=== PATIENT | female | born 2005 | race Caucasian/White ===

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

== ENCOUNTER 2024-02-24 14:32 | Emergency (ER) | payer SELFPAY ==
[2024-02-24 14:33] VITALS: BP 135/84; PULSE 95; RESP 16; TEMP 36.7; O2SAT 100; BMI 39.4
[2024-02-24 14:36] VITALS: BP 135/84; PULSE 93; O2SAT 99
--- NOTE | 2024-02-24 14:41 | ED_ITS ---
<Statement entered by Abida Griffith DO - 02/24/24 16:40> I was consulted by the DAWIT, and we discussed the complexity of the problems being addressed. I approved the treatment and management plan for this patient's care in the emergency department, thus performing a substantive portion of the medical decision making. Abida Griffith DO Discharge Plan Disposition Patient Disposition: Home, Self-Care Condition: Good Prescriptions Prescriptions: No Action hydrocodone-acetaminophen 5-325 mg tablet 1 tab PO Q8H PRN (Reason: pain) Qty: 12 0RF naproxen 500 mg tablet 500 mg PO Q12H PRN (Reason: pain) Qty: 20 0RF Referrals Follow up/Referrals: Provider,Referral, MD [Primary Care Provider] - See instructions Activity Restrictions/Add. Instructions Additional Instructions/Restrictions: Continue to take Tylenol and especially Motrin for migraine-like symptoms. Follow-up with your PCP for no improvement or worsening signs or symptoms. Return to ER as needed. Clinical Impressions Clinical Impression: Headache Instructions Patient Instructions: DI for Headache Print Language Print Language: Bruneian Discharge ED Provider: Abida Griffith General Adult HPI General Chief complaint: Headache Stated complaint: headache w/blurred vision vomiting, nausea Time Seen by Provider: 02/24/24 14:41 Mode of Arrival: Ambulatory Source of Information: Patient Limitations: No Limitations Description of Symptoms (Recalled from ER Triage Doc. by RN): Reports having a migraine for 3 days. States she has had migraines in the past and this one is like that just a little more painful. History of Present Illness HPI narrative: Patient presents for evaluation of headache. Patient gives a history of 3 days of crescendo-decrescendo headache. She has not been headache free for 3 days but has had periods of intensity at 10 out of 10 but at the lowest it has been 4 out of 10. It is located on the left side of her head with no radiation. Patient states when it hurts significantly at 10 she has blurred vision and has had nausea and vomiting associated. She is only tried to treat it with Tylenol. She does have a history of headaches but is not currently on any medication as she has no insurance. Denies any recent illness fever chills hemoptysis hematochezia melena hematemesis hematuria. Related Data Previous Rx's ?Medication ?Instructions ?Recorded hydrocodone 5 mg-acetaminophen 325 1 tab PO Q8H PRN pain #12 tabs 03/01/23 mg tablet naproxen 500 mg tablet 500 mg PO Q12H PRN pain #20 tabs 03/01/23 Allergies Allergy/AdvReac Type Severity Reaction Status Date / Time Penicillins Allergy Verified 02/28/23 23:06 [facility] Disclaimer: The information contained in this section may have been updated after the patient was seen, as this information can be updated by other users. Medical History (Updated 02/24/24 @ 16:06 by GETACHEW Johnson) Depression Anxiety Migraine Asthma Surgical History History of tympanostomy tube placement Social History (Updated 04/11/22 @ 14:16 by Cheryl Faust RN) Smoking Status: Never smoker alcohol intake: never substance use type: denies use current occupational status: student Travel in the last 8 weeks: None household members: family housing: house Other Medical History Have you received the Flu Vaccine for this season: No Have you received the Pneumonia Vaccine: No ROS Obtained: Yes Systems reviewed as appropriate & no additional complaints except as documented Physical Exam General General appearance: alert and in no apparent distress Eye Eye exam: Present normal appearance, PERRL and EOMI Neck Neck exam: Present normal inspection and full ROM; Absent tenderness Respiratory Respiratory exam: Present normal lung sounds bilaterally Cardiovascular Cardiovascular exam: Present regular rate Neurological Exam Neurological exam: Present alert, oriented X3, CN II-XII intact and normal gait; Absent motor sensory deficit Medical Decision Making Medical Records Medical records reviewed: Yes I reviewed the patient's medical records. Screening: Per USPSTF and CDC recommendations, given the prevalence of disease in our region, it is our hospital?s policy to screen for HIV and viral Hepatitis for all patients aged 18 and over and those with ongoing risk factors. Prem Inquiry Pt receiving controlled substance: No Vital Signs: 02/24/24 14:33 02/24/24 14:36 02/24/24 15:01 Temperature 98.0 F Temperature Source Oral Pulse Rate 93 H 82 Pulse Rate [Radial] 95 H Respiratory Rate 16 Blood Pressure 135/84 112/71 Blood Pressure [Right Arm] 135/84 Blood Pressure Mean [Right Arm] 101 Blood Pressure Source [Right Arm] Manual Cuff/ Doppler Blood Pressure Position [Right Arm] Sitting 02 Sat by Pulse Oximetry 100 99 99 Oxygen Delivery Method Room Air Room Air Room Air 02/24/24 15:30 02/24/24 16:10 Temperature 98 F Temperature Source Pulse Rate 81 82 Pulse Rate [Radial] Respiratory Rate 16 Blood Pressure 131/88 131/88 Blood Pressure [Right Arm] Blood Pressure Mean [Right Arm] Blood Pressure Source [Right Arm] Blood Pressure Position [Right Arm] 02 Sat by Pulse Oximetry 100 Oxygen Delivery Method Room Air Lab Data Lab results reviewed: Yes I reviewed the patient's lab results. Lab Results 02/24/24 14:51: WBC 6.8, RBC 4.33, Hgb 11.5 L, Hct 34.9 L, MCV 80.7 L, MCH 26.5 L, MCHC 32.8, RDW 15.9, Plt Count 305, MPV 8.1, Neut % (Auto) 64.1, Lymph % (Auto) 25.6, [place] % (Auto) 5.3, Eos % (Auto) 4.1, Baso % (Auto) 0.9, Neut # (Auto) 4.3, Lymph # (Auto) 1.7, [place] # (Auto) 0.4, Eos # (Auto) 0.3, Baso # (Auto) 0.1, Sodium 140, Potassium 3.9, Chloride 107, Carbon Dioxide 26, Anion Gap 10.9, BUN 10, Creatinine 0.70, Estimated Creat Clear 219, Estimated GFR 108, Est GFR ( Amer) 130, Glucose 66 L, Calcium 9.6, Magnesium 1.9, Total Bilirubin 0.5, AST 29, ALT 26, Alkaline Phosphatase 45, Total Protein 7.5, Albumin 4.4, Globulin 3.1, Albumin/Globulin Ratio 1.4 02/24/24 15:40: Urine Color Yellow, Urine Appearance Clear, Urine pH 8.0, Ur Specific [place] 1.015, Urine Protein Negative, Urine Glucose (UA) Negative, Urine Ketones Negative, Urine Blood Negative, Urine Nitrate Negative, Urine Bilirubin Negative, Urine Urobilinogen 0.2, Ur Leukocyte Esterase Negative 02/24/24 14:51 02/24/24 14:51 Orders (Tests/Meds): ED MEDICATIONS Discontinued Medications Generic Name Dose Route Start Last Admin Trade Name Freq PRN Reason Stop Dose Admin Acetaminophen 1,000 mg 02/24/24 14:49 02/24/24 15:18 Acetaminophen 500mg Tab PO 02/24/24 14:50 1,000 mg ONCE ONE Administration Dexamethasone Sodium Phosphate 10 mg 02/24/24 14:49 02/24/24 15:17 Dexamethasone 4mg/Ml 5ml Mdv IV 02/24/24 14:50 10 mg ONCE ONE Administration Diphenhydramine HCl 50 mg 02/24/24 14:49 02/24/24 15:17 Diphenhydramine 50mg/Ml Vial IV 02/24/24 14:50 50 mg ONCE ONE Administration Ketorolac Tromethamine 15 mg 02/24/24 14:49 02/24/24 15:17 Ketorolac 30mg/Ml Vial IV 02/24/24 14:50 15 mg ONCE ONE Administration Methocarbamol 500 mg 02/24/24 14:49 02/24/24 15:17 Methocarbamol 500mg Tablet PO 02/24/24 14:50 500 mg ONCE ONE Administration Prochlorperazine Edisylate 10 mg 02/24/24 14:49 02/24/24 15:17 Prochlorperazine 10mg/2ml Vial IV 02/24/24 14:50 10 mg ONCE ONE Administration ORDERS Category Date Time Status CBC w/Auto Diff [Complete Blood Count Auto Diff] Stat Lab 02/24/24 14:51 Completed CMP [Comprehensive Metabolic Panel] Stat Lab 02/24/24 14:51 Completed HIV (1&2) Antibody Rapid Stat Lab 02/24/24 14:51 Received Hep C Ab with Reflex to RNA Stat Lab 02/24/24 14:51 Received Magnesium Stat Lab 02/24/24 14:51 Completed Thyroid Panel Stat Lab 02/24/24 14:51 Received UA [Urinalysis and Microscopic] Stat Lab 02/24/24 15:40 Results Urine , HCG Qual. Stat Lab 02/24/24 15:40 Received Medical Decision Narrative: In summary patient is a 18-year-old female who presents to the emergency department for evaluation of headache. Patient is hemodynamically stable upon arrival, afebrile. Physical exam is remarkable for nonreproducible headache pain with no nuchal rigidity no C-spine tenderness normal oropharynx clear breath sounds no focal neurologic deficits with cranial nerves II through XII intact grossly to exam. Differential diagnosis includes migraine versus upper respiratory tract infection etc. Initial workup will be conducted with hematologic labs UA. Initial interventions include Tylenol Benadryl Compazine Decadron Robaxin Toradol. Initial workup reviewed by me shows that her hematologic labs are nonactionable. Upon repeat evaluation patient had complete resolution of her symptoms after initial intervention. Given this patient is appropriate for discharge with follow-up with her PCP within a week. Critical Care Critical Care Time Critical Care Time: No
[2024-02-24 15:01] VITALS: BP 112/71; PULSE 82; O2SAT 99
[2024-02-24 15:04] LABS: Basophils # 0.1 K/mm3 (0-0.2); Basophils % 0.9 % (0.1-2.0); Eosinophils # 0.3 K/mm3 (0.0-0.4); Eosinophils % 4.1 % (0.1-12.0); Hematocrit 34.9 % (37.0-47.0); Hemoglobin 11.5 g/dL (12.2-16.2); Lymphocytes # 1.7 K/mm3 (0.7-4.5); Lymphocytes % 25.6 % (10-50); Mean Corpuscular HGB Conc 32.8 g/dL (31.8-35.4); Mean Corpuscular Hemoglobin 26.5 pg (27.0-31.2); Mean Corpuscular Volume 80.7 fl (81-99); Mean Platelet Volume 8.1 fl (7.4-10.4); Monocytes # 0.4 K/mm3 (0.1-1.0); Monocytes % 5.3 % (1.7-9.3); Neutrophils # 4.3 K/mm3 (1.8-7.8); Neutrophils % 64.1 % (37.0-80.0); Platelet Count 305 K/mm3 (142-424); Red Blood Count 4.33 M/mm3 (4.20-5.40); Red Cell Distribution Width 15.9 % (11.5-17.5); White Blood Count 6.8 K/mm3 (4.5-13.0)
[2024-02-24 15:05] LABS: Albumin Level 4.4 g/dl (3.5-5.0); Chloride 107 mmol/L (98-107); Potassium 3.9 mmoL/L (3.5-5.1); Sodium 140 mmol/L (136-145)
[2024-02-24 15:07] LABS: Blood Urea Nitrogen 10 mg/dl (7-17); Creatinine Clearance Estimated 219 mL/min (50-200); Estimated Glomerular Filt Rate 108 ml/min (>60); GFR (African American) 130 ML/MIN (>60)
[2024-02-24 15:08] LABS: Alanine Aminotransferase 26 U/L (12-78); Albumin/Globulin Ratio 1.4 (1.1-1.8); Alkaline Phosphatase 45 U/L (38-126); Anion Gap 10.9 mEq/L (5-15); Aspartate Amino Transferase 29 U/L (14-36); Bilirubin,Total 0.5 mg/dl (0.2-1.3); Calcium 9.6 mg/dl (8.4-10.2); Carbon Dioxide 26 mmol/L (22.0-30.0); Globulin 3.1 g/dL (1.3-3.2); Glucose 66 mg/dl (74-100); Magnesium 1.9 mg/dl (1.6-2.3); Total Protein,Serum 7.5 g/dl (6.3-8.2)
[2024-02-24] MEDS: DEXAMETHASONE 4MG/ML 5ML MDV 10 MG IV (15:17)
[2024-02-24] MEDS: PROCHLORPERAZINE 10MG/2ML VIAL 10 MG IV (15:17)
[2024-02-24] MEDS: diphenhydrAMINE 50MG/ML VIAL 50 MG IV (15:17)
[2024-02-24] MEDS: KETOROLAC 30MG/ML VIAL 15 MG IV (15:17)
[2024-02-24] MEDS: METHOCARBAMOL 500MG TABLET 500 MG PO (15:17)
[2024-02-24] MEDS: ACETAMINOPHEN 500MG TAB 1000 MG PO (15:18)
[2024-02-24 15:30] VITALS: BP 131/88; PULSE 81; O2SAT 100
[2024-02-24 15:45] LABS: Microscopic, Urine URINE MICROSCOPIC (MICROSCOPIC)
[2024-02-24 15:46] LABS: Triiodothryronine (T3) Uptake 36 % (23.5-40.5)
[2024-02-24 15:47] LABS: Free Thyroxine Index 3.2 ug/dL (5.93-13.13); T4 (Thyroxine) 8.8 ug/dl (5.53-11.0)
[2024-02-24 15:49] LABS: Appearance,Urine CLEAR (Clear); Bilirubin,Urine Negative (Negative); Blood, Urine Negative (Negative); Color,Urine YELLOW (Yellow); Glucose,Urine (UA) Negative (Negative); Ketones,Urine Negative (Negative); Leukocyte Esterase,Urine Negative (Negative); Nitrate,Urine Negative (Negative); Protein,Urine Negative (Negative); Specific Gravity, Urine 1.015 (1.005-1.030); Urobilinogen,Urine 0.2 EU/dl (0.2)
[2024-02-24 16:01] LABS: Thyroid Stimulating Hormone 0.96 uIU/mL (0.465-4.68)
[2024-02-24 16:10] VITALS: BP 131/88; PULSE 82; RESP 16; TEMP 36.6; O2SAT 100
[2024-02-24 17:11] LABS: Bacteria,Urine Trace /lpf
[2024-02-24 17:50] LABS: Urine Pregnancy, HCG Qual. Negative (Negative)
[2024-02-24 21:26] LABS: HIV (1&2) Antibody Rapid NONREACTIVE (NONREACTIVE)
[2024-02-26 05:27] LABS: HCV Ab Non Reactive (Non Reactive)
== END 2024-02-24 16:12 | disposition home or self-care (01) ==
PROVIDERS: Physician Assistant; Student in an Organized Health Care Education/Training Program; Emergency Provider Emergency Medicine
DX: R51.9 Headache, unspecified (principal); R11.2 Nausea with vomiting, unspecified; H53.8 Other visual disturbances
CPT/HCPCS: 80053; 81001; 81025; 83735; 84436; 84443; 84479; 85025; 86803; 87389; 96374; 96375; 99283; J0780; J1100; J1200; J1885

== ENCOUNTER 2024-03-10 23:27 | Emergency (ER) | payer SELFPAY ==
[2024-03-10 23:29] VITALS: BP 138/80; PULSE 101; RESP 20; TEMP 36.8; O2SAT 98; BMI 39.9
--- NOTE | 2024-03-10 23:31 | ED_ITS ---
Discharge Plan Disposition Patient Disposition: Home, Self-Care Prescriptions Prescriptions: No Action hydrocodone-acetaminophen 5-325 mg tablet 1 tab PO Q8H PRN (Reason: pain) Qty: 12 0RF naproxen 500 mg tablet 500 mg PO Q12H PRN (Reason: pain) Qty: 20 0RF Referrals Follow up/Referrals: Provider,Referral, [Primary Care Provider] - See instructions Activity Restrictions/Add. Instructions Additional Instructions/Restrictions: Please follow-up with your primary care provider. Please return to the emergency department if you develop any new or worsening symptoms or become concerned for your health. Clinical Impressions Clinical Impression: Exposure to COVID-19 virus Stand Alone Forms Stand Alone Forms: Work/School Release Print Language Print Language: Divehi Discharge ED Provider: Niles Donohue General Adult HPI General Chief complaint: Upper Respiratory Infection Stated complaint: vomiting, fever, cough, covid exposure, wasp sting Time Seen by Provider: 03/10/24 23:30 History of Present Illness HPI narrative: 18-year-old female presents with multiple complaints. She reports that she had a fever couple days ago and has been having some cough and congestion as well as vomiting and diarrhea. She reports that she thinks she was exposed to COVID and would like to be checked. She denies any significant shortness of breath currently. She reports she is still able to eat and drink. Related Data Previous Rx's ?Medication ?Instructions ?Recorded hydrocodone 5 mg-acetaminophen 325 1 tab PO Q8H PRN pain #12 tabs 03/01/23 mg tablet naproxen 500 mg tablet 500 mg PO Q12H PRN pain #20 tabs 03/01/23 Allergies Allergy/AdvReac Type Severity Reaction Status Date / Time Penicillins Allergy Verified 02/28/23 23:06 [facility] Disclaimer: The information contained in this section may have been updated after the patient was seen, as this information can be updated by other users. Medical History (Updated 03/10/24 @ 23:41 by Niles Donohue MD) Depression Anxiety Migraine Asthma Surgical History History of tympanostomy tube placement Social History (Updated 04/11/22 @ 14:16 by Cheryl Faust RN) Smoking Status: Current every day smoker tobacco type: e-cigarettes alcohol intake: never substance use type: denies use current occupational status: student Travel in the last 8 weeks: None household members: family housing: house Other Medical History Have you received the Flu Vaccine for this season: No Have you received the Pneumonia Vaccine: No ROS Obtained: Yes All systems reviewed & no additional complaints except as documented Physical Exam General General appearance: alert and in no apparent distress Head Head exam: atraumatic and normocephalic Eye Eye exam: Present normal appearance, PERRL and EOMI ENT ENT exam: Present normal oropharynx and normal external ear exam Neck Neck exam: Present normal inspection and full ROM Chest Chest inspection: Present normal inspection and symmetric chest wall rise; Absent tenderness Respiratory Respiratory exam: Present normal lung sounds bilaterally; Absent respiratory distress Cardiovascular Cardiovascular exam: Present regular rate and normal rhythm Abdominal Exam Abdominal exam: Present soft; Absent distention, tenderness or guarding Extremities Exam Extremities exam: Present normal inspection; Absent edema or joint swelling Back Exam Back exam: Present normal inspection; Absent tenderness Neurological Exam Neurological exam: Present alert and oriented X3; Absent motor sensory deficit Psychiatric Psychiatric exam: Present normal affect and normal mood Skin Skin exam: Present warm, dry and normal color Lymphatic Lymphatic Findings: no adenopathy Medical Decision Making Medical Records Medical records reviewed: Yes I reviewed the patient's medical records. Screening: Per USPSTF and CDC recommendations, given the prevalence of disease in our region, it is our hospital?s policy to screen for HIV and viral Hepatitis for all patients aged 18 and over and those with ongoing risk factors. Prem Inquiry Pt receiving controlled substance: No Prem was queried for this patient: No Vital Signs: 03/10/24 23:29 03/10/24 23:56 Temperature 98.2 F 98.2 F Temperature Source Oral Pulse Rate 90 Pulse Rate [Left Radial] 101 H Respiratory Rate 20 20 Blood Pressure 135/78 Blood Pressure [Right Arm] 138/80 Blood Pressure Mean [Right Arm] 99 02 Sat by Pulse Oximetry 98 Oxygen Delivery Method Room Air Room Air Lab Data Lab results reviewed: Yes I reviewed the patient's lab results. Lab Results 03/10/24 23:40: SARS-CoV-2 (PCR) Not detected, Influenza A Untype (PCR) Not detected, Influenza Type B (PCR) Not detected Orders (Tests/Meds): ORDERS Category Date Time Status Rapid PCR Covid and Flu A/B Stat Lab 03/10/24 23:40 Completed Medical Decision Narrative: 18-year-old female presents for cough congestion nausea vomiting diarrhea. Patient is concerned she could have COVID. History was obtained via interactive discussion with patient. On arrival, patient is [afebrile, hemodynamically stable, satting appropriately, alert, oriented x4, GCS 15], moving all extremities spontaneously. Full physical exam performed and significant for no significant physical exam abnormalities Differential includes but is not limited to COVID, flu, gastroenteritis, pneumonia. Blood work, radiograph of the chest was considered, but deemed unnecessary due to history, clear lungs on exam. Given patient history, exam and workup, patient's presentation most likely represents gastroenteritis. COVID swab was sent and returned negative. Patient was discharged in stable condition. Procedures Risk/Benefits of Procedure(s) Were Explained: Yes Critical Care Critical Care Time Critical Care Time: No
--- NOTE | 2024-03-10 23:46 | PC.NURSE ---
covid swab sent to lab
[2024-03-10 23:54] LABS: Coronavirus 19, PCR Not Detected (NotDetected); Influenza A, PCR Not Detected (NotDetected); Influenza B, PCR Not Detected (NotDetected)
[2024-03-10 23:56] VITALS: BP 135/78; PULSE 90; RESP 20; TEMP 36.8; O2SAT 99
== END 2024-03-10 23:57 | disposition home or self-care (01) ==
PROVIDERS: Emergency Provider Emergency Medicine
DX: Z20.822 Contact with and (suspected) exposure to COVID-19 (principal); R05.9 Cough, unspecified; R09.81 Nasal congestion; R11.11 Vomiting without nausea; R50.9 Fever, unspecified
CPT/HCPCS: 87636; 99282

== ENCOUNTER 2024-06-17 20:16 | Emergency (ER) | payer SELFPAY ==
[2024-06-17 20:17] VITALS: BP 143/95; PULSE 108; RESP 18; TEMP 36.8; O2SAT 98; BMI 37.1
--- NOTE | 2024-06-17 20:21 | HMH.EDGENADL ---
Discharge Plan Disposition Patient Disposition: Home, Self-Care Condition: Good Prescriptions Prescriptions: New ltaiudagnaqwkua-fcotfcreg-KV [Bromfed DM] 2-30-10 mg/5 mL syrup 5 ml PO Q4H PRN (Reason: sinus symptoms) Qty: 118 0RF No Action hydrocodone-acetaminophen 5-325 mg tablet 1 tab PO Q8H PRN (Reason: pain) Qty: 12 0RF naproxen 500 mg tablet 500 mg PO Q12H PRN (Reason: pain) Qty: 20 0RF Referrals Follow up/Referrals: Provider,Referral, MD [Primary Care Provider] - See instructions Activity Restrictions/Add. Instructions Additional Instructions/Restrictions: As we discussed please check the portal for the final results of your respiratory panel. I have sent Bromfed into your pharmacy for your congestion. I recommend xhxc-amj-gzeplmt nasal decongestion like Afrin with 1 spray in each nostril only at bedtime and no more than 3 days in a row. If you have continued new or worsening signs or symptoms follow-up with your PCP or return to the ER as needed Clinical Impressions Clinical Impression: Acute upper respiratory infection Stand Alone Forms Stand Alone Forms: Work/School Release Print Language Print Language: Eritrean Discharge ED Provider: Reynaldo Peña General Adult HPI <GETACHEW Johnson - Last Filed: 06/17/24 20:46> General Chief complaint: Upper Respiratory Infection Stated complaint: SOA, sore throat, ESCOBEDO, vomiting Time Seen by Provider: 06/17/24 20:21 History of Present Illness HPI narrative: Patient presents for a day and a half of congestion headache body aches but no fever chest pain hemoptysis hematochezia melena nausea vomit diarrhea. She was exposed to the flu by a coworker. Related Data Previous Rx's ?Medication ?Instructions ?Recorded hydrocodone 5 mg-acetaminophen 325 1 tab PO Q8H PRN pain #12 tabs 03/01/ mg tablet naproxen 500 mg tablet 500 mg PO Q12H PRN pain #20 tabs 03/01/23 lnvygybkciexdxi-jkqehawirujdrlt-XB 5 ml PO Q4H PRN sinus symptoms 06/17/24 2 mg-30 mg-10 mg/5 mL oral syrup #118 mL (Bromfed DM) Allergies Allergy/AdvReac Type Severity Reaction Status Date / Time Penicillins Allergy Verified 02/28/23 23:06 [facility] <GETACHEW Johnson - Last Filed: 06/17/24 20:46> [facility] Disclaimer: The information contained in this section may have been updated after the patient was seen, as this information can be updated by other users. Medical History (Updated 06/17/24 @ 20:48 by GETACHEW Johnson) Depression Anxiety Migraine Asthma Surgical History History of tympanostomy tube placement Social History (Updated 04/11/22 @ 14:16 by Cheryl Faust RN) Smoking Status: Never smoker alcohol intake: never substance use type: denies use current occupational status: student Travel in the last 8 weeks: None household members: family housing: house Have you lived/traveled outside [place] in past 30 days?: No Contact w/someone who lives/traveled outside US past 30 days?: No Exposure to someone with infectious disease in past 14 days?: No Do you have a fever (greater than 100.4 F or 38 C)?: No Have you tested positive for COVID-19: No Exposed to someone with COVID-19 in past 14 days?: No Do you have a sore throat?: Yes Do you have a cough?: Yes Do you have any weakness?: Yes Do you have any diarrhea?: Yes Are you experiencing any unusual bleeding?: No Do you have any muscle aches/pain?: No Do you have any abdominal pain?: No Are you experiencing loss of taste or smell?: No Other Medical History Have you received the Flu Vaccine for this season: No Have you received the Pneumonia Vaccine: No <GETACHEW Johnson - Last Filed: 06/17/24 20:46> ROS Obtained: Yes Systems reviewed as appropriate & no additional complaints except as documented Physical Exam <GETACHEW Johnson - Last Filed: 06/17/24 20:46> General General appearance: alert and in no apparent distress Respiratory Respiratory exam: Present normal lung sounds bilaterally Cardiovascular Cardiovascular exam: Present regular rate Neurological Exam Neurological exam: Present alert and oriented X3 Skin Skin exam: Present warm and dry Medical Decision Making <GETACHEW Johnson - Last Filed: 06/17/24 20:46> Medical Records Screening: Per USPSTF and CDC recommendations, given the prevalence of disease in our region, it is our hospital?s policy to screen for HIV and viral Hepatitis for all patients aged 18 and over and those with ongoing risk factors. Prem Inquiry Pt receiving controlled substance: No Vital Signs: 06/17/24 20:17 06/17/24 20:30 06/17/24 20:48 Temperature 98.3 F 97.9 F Temperature Source Oral Pulse Rate 95 H 94 H Pulse Rate [Right] 108 H Respiratory Rate 18 16 Blood Pressure 143/95 H 143/95 H Blood Pressure [Right Arm] 143/95 H Blood Pressure Mean [Right Arm] 111 Blood Pressure Source Automatic Cuff Blood Pressure Source [Right Arm] Automatic Cuff Blood Pressure Position Supine Blood Pressure Position [Right Arm] Sitting 02 Sat by Pulse Oximetry 98 99 Oxygen Delivery Method Room Air Room Air Room Air Lab Data Lab results reviewed: Yes I reviewed the patient's lab results. Lab Results 06/17/24 20:20: SARS-CoV-2 (PCR) Detected A, Influenza A Untype (PCR) Not detected, Influenza Type B (PCR) Not detected Orders (Tests/Meds): ORDERS Category Date Time Status Rapid PCR Covid and Flu A/B Stat Lab 06/17/24 20:20 Completed Medical Decision Narrative: In summary patient is a 19-year-old female who presents to the emergency department for evaluation of upper respiratory tract infection symptoms. Patient is normotensive at 143/95 heart rate of 95 with normal sinus rhythm on the bedside monitor breathing 18 times a minute satting at 99% on room air upon arrival, afebrile at 98.3. Physical exam is remarkable for pupils that were equal round reactive to light with no meningeal signs or nuchal rigidity, posterior pharynx is patent without exudate, no cervical lymphadenopathy, patient does have boggy nasal mucosa and inflamed nasal passages, breath sounds are clear and equal bilaterally to the bases without adventitious sounds no increased work of breathing, abdomen soft nontender no rebound or guarding or rigidity.. Differential diagnosis includes viral upper versus lower respiratory tract infection. Initial workup will be conducted with COVID and flu swabs. Initial interventions were considered however patient is already taking an Tylenol and Motrin within 4 hours thus deferred. I had interactive discussion with the patient regarding her workup and testing. Via patient directed decision making and discharge she feels comfortable going home and utilizing gxqb-rco-nugvoeu therapies until her Bromfed is ready tomorrow and she will check the patient portal for the results of her respiratory swabs. I will give her 2 days off of work and she is appropriate for discharge with strict return precautions and close follow-up with her PCP if she has continued new or worsening signs or symptoms or return to the ER. <Reynaldo Peña MD - Last Filed: 06/17/24 21:00> Vital Signs: 06/17/24 20:17 06/17/24 20:30 06/17/24 20:48 Temperature 98.3 F 97.9 F Temperature Source Oral Pulse Rate 95 H 94 H Pulse Rate [Right] 108 H Respiratory Rate 18 16 Blood Pressure 143/95 H 143/95 H Blood Pressure [Right Arm] 143/95 H Blood Pressure Mean [Right Arm] 111 Blood Pressure Source Automatic Cuff Blood Pressure Source [Right Arm] Automatic Cuff Blood Pressure Position Supine Blood Pressure Position [Right Arm] Sitting 02 Sat by Pulse Oximetry 98 99 Oxygen Delivery Method Room Air Room Air Room Air Lab Data Lab Results 06/17/24 20:20: SARS-CoV-2 (PCR) Detected A, Influenza A Untype (PCR) Not detected, Influenza Type B (PCR) Not detected Orders (Tests/Meds): ORDERS Category Date Time Status Rapid PCR Covid and Flu A/B Stat Lab 06/17/24 20:20 Completed Medical Decision Narrative: In summary patient is a 19-year-old female who presents to the emergency department for evaluation of upper respiratory tract infection symptoms. Patient is normotensive at 143/95 heart rate of 95 with normal sinus rhythm on the bedside monitor breathing 18 times a minute satting at 99% on room air upon arrival, afebrile at 98.3. Physical exam is remarkable for pupils that were equal round reactive to light with no meningeal signs or nuchal rigidity, posterior pharynx is patent without exudate, no cervical lymphadenopathy, patient does have boggy nasal mucosa and inflamed nasal passages, breath sounds are clear and equal bilaterally to the bases without adventitious sounds no increased work of breathing, abdomen soft nontender no rebound or guarding or rigidity.. Differential diagnosis includes viral upper versus lower respiratory tract infection. Initial workup will be conducted with COVID and flu swabs. Initial interventions were considered however patient is already taking an Tylenol and Motrin within 4 hours thus deferred. I had interactive discussion with the patient regarding her workup and testing. Via patient directed decision making and discharge she feels comfortable going home and utilizing ahuh-tqt-vfdwksy therapies until her Bromfed is ready tomorrow and she will check the patient portal for the results of her respiratory swabs. I will give her 2 days off of work and she is appropriate for discharge with strict return precautions and close follow-up with her PCP if she has continued new or worsening signs or symptoms or return to the ER. I was consulted by the DAWIT, and we discussed the complexity of the problems being addressed. I approved the treatment and management plan for this patient's care in the Emergency Department, thus performing a substantive portion of the medical decision making. Reynaldo Peña MD Critical Care <GETACHEW Johnson - Last Filed: 06/17/24 20:46> Critical Care Time Critical Care Time: No
[2024-06-17 20:29] LABS: Influenza A, PCR Not Detected (NotDetected); Influenza B, PCR Not Detected (NotDetected)
[2024-06-17 20:30] VITALS: BP 143/95; PULSE 95; O2SAT 99
[2024-06-17 20:48] VITALS: BP 143/95; PULSE 94; RESP 16; TEMP 36.6; O2SAT 98
[2024-06-17 20:56] LABS: Coronavirus 19, PCR Detected (NotDetected)
--- NOTE | 2024-06-17 21:07 | PC.NURSE ---
Phone call placed to inform patient of respiratory test results. No answer. VM left.
--- NOTE | 2024-06-17 21:15 | PC.NURSE ---
Patient returned phone call back to department, and updated on recent respiratory panel results. Patient verbalized understanding. No further comments or concerns.
== END 2024-06-17 20:54 | disposition home or self-care (01) ==
PROVIDERS: Physician Assistant; Emergency Provider Emergency Medicine
DX: J06.9 Acute upper respiratory infection, unspecified (principal); R51.9 Headache, unspecified; R09.81 Nasal congestion; R52 Pain, unspecified; Z20.828 Contact with and (suspected) exposure to other viral communicable diseases
CPT/HCPCS: 87636; 99282

== ENCOUNTER 2024-07-01 16:48 | Emergency (ER) | payer SELFPAY ==
[2024-07-01 16:49] VITALS: BP 158/99; PULSE 103; RESP 20; TEMP 36.9; O2SAT 99; BMI 37.1
--- NOTE | 2024-07-01 16:51 | ED_ITS ---
Discharge Plan Disposition Patient Disposition: Home, Self-Care Condition: Good Prescriptions Prescriptions: New pktcfjdoknigllt-ctxwaeirb-YP [Bromfed DM] 2-30-10 mg/5 mL syrup 5 ml PO Q4H PRN (Reason: sinus symptoms) Qty: 118 0RF No Action hydrocodone-acetaminophen 5-325 mg tablet 1 tab PO Q8H PRN (Reason: pain) Qty: 12 0RF naproxen 500 mg tablet 500 mg PO Q12H PRN (Reason: pain) Qty: 20 0RF nggarriflgbswzc-csvnmaaet-CJ [Bromfed DM] 2-30-10 mg/5 mL syrup 5 ml PO Q4H PRN (Reason: sinus symptoms) Qty: 118 0RF Referrals Follow up/Referrals: Provider,Referral, [Primary Care Provider] - See instructions Activity Restrictions/Add. Instructions Additional Instructions/Restrictions: Continue taking Tylenol alternating with Motrin every 4 hours for your symptoms. I sent in Bromfed to your pharmacy. If you have continued new or worsening signs or symptoms follow-up with your PCP or return to the ER as needed. Clinical Impressions Clinical Impression: Acute lower respiratory tract infection Stand Alone Forms Stand Alone Forms: Work/School Release Print Language Print Language: Sudanese Discharge ED Provider: Reynaldo Peña General Adult HPI <GETACHEW Johnson - Last Filed: 07/01/24 18:41> General Chief complaint: Fever Stated complaint: fever, cough, SOA Time Seen by Provider: 07/01/24 16:52 History of Present Illness HPI narrative: Patient presents for evaluation of cough congestion and fever. Patient was seen by me approximately 2 weeks ago and diagnosed with COVID-19. She ultimately got better and felt like she resolved however yesterday she began having headache fever and a cough. Patient states her fever was as high as 100 today. She denies any chest pain shortness of breath hemoptysis hematochezia melena nausea vomiting diarrhea. Related Data Previous Rx's ?Medication ?Instructions ?Recorded hydrocodone 5 mg-acetaminophen 325 1 tab PO Q8H PRN pain #12 tabs 03/01/ mg tablet naproxen 500 mg tablet 500 mg PO Q12H PRN pain #20 tabs 03/01/23 fgcpfrddjuqjdya-zzarawovnccglhc-TV 5 ml PO Q4H PRN sinus symptoms 06/17/24 2 mg-30 mg-10 mg/5 mL oral syrup #118 mL (Bromfed DM) mocxqvlzdvbkdqy-mvovwekuaxiqvqj-EO 5 ml PO Q4H PRN sinus symptoms 07/01/24 2 mg-30 mg-10 mg/5 mL oral syrup #118 mL (Bromfed DM) Allergies Allergy/AdvReac Type Severity Reaction Status Date / Time Penicillins Allergy Verified 02/28/23 23:06 PFS <GETACHEW Johnson - Last Filed: 07/01/24 18:41> PFS Disclaimer: The information contained in this section may have been updated after the patient was seen, as this information can be updated by other users. Medical History (Updated 07/01/24 @ 18:38 by GETACHEW Johnson) Depression Anxiety Migraine Asthma Surgical History History of tympanostomy tube placement Social History (Updated 04/11/22 @ 14:16 by Cheryl Faust RN) Smoking Status: Current every day smoker tobacco type: e-cigarettes alcohol intake: never substance use type: denies use current occupational status: student Travel in the last 8 weeks: None household members: family housing: house Have you lived/traveled outside [place] in past 30 days?: No Contact w/someone who lives/traveled outside US past 30 days?: No Exposure to someone with infectious disease in past 14 days?: No Do you have a fever (greater than 100.4 F or 38 C)?: Yes Have you tested positive for COVID-19: No Exposed to someone with COVID-19 in past 14 days?: No Do you have a sore throat?: No Do you have a cough?: Yes Do you have any weakness?: No Do you have any diarrhea?: No Are you experiencing any unusual bleeding?: No Do you have any muscle aches/pain?: No Do you have any abdominal pain?: No Are you experiencing loss of taste or smell?: No Other Medical History Have you received the Flu Vaccine for this season: No Have you received the Pneumonia Vaccine: No <GETACHEW Johnson - Last Filed: 07/01/24 18:41> ROS Obtained: Yes Systems reviewed as appropriate & no additional complaints except as documented Physical Exam <GETACHEW Johnson - Last Filed: 07/01/24 18:41> General General appearance: alert and in no apparent distress Respiratory Respiratory exam: Present normal lung sounds bilaterally Cardiovascular Cardiovascular exam: Present regular rate Neurological Exam Neurological exam: Present alert and oriented X3 Medical Decision Making <GETACHEW Johnson - Last Filed: 07/01/24 18:41> Medical Records Medical records reviewed: Yes I reviewed the patient's medical records. Screening: Per USPSTF and CDC recommendations, given the prevalence of disease in our region, it is our hospital?s policy to screen for HIV and viral Hepatitis for all patients aged 18 and over and those with ongoing risk factors. Prem Inquiry Pt receiving controlled substance: No Vital Signs: 07/01/24 16:49 07/01/24 17:00 07/01/24 17:27 Temperature 98.4 F Temperature Source Oral Pulse Rate 97 H 106 H Pulse Rate [Right] 103 H Respiratory Rate 20 Blood Pressure 148/97 H 118/67 Blood Pressure [Right Arm] 158/99 H Blood Pressure Mean [Right Arm] 118 Blood Pressure Source [Right Arm] Automatic Cuff 02 Sat by Pulse Oximetry 99 98 97 Oxygen Delivery Method Room Air Room Air Room Air 07/01/24 17:31 07/01/24 17:35 07/01/24 17:46 Temperature Temperature Source Oral Pulse Rate 111 H 106 H Pulse Rate [Right] Respiratory Rate Blood Pressure 117/80 112/81 Blood Pressure [Right Arm] Blood Pressure Mean [Right Arm] Blood Pressure Source [Right Arm] 02 Sat by Pulse Oximetry 97 97 Oxygen Delivery Method Room Air Room Air Lab Data Lab results reviewed: Yes I reviewed the patient's lab results. Lab Results 07/01/24 17:25: WBC 3.9 L, RBC 4.43, Hgb 11.1 L, Hct 35.6 L, MCV 80.4 L, MCH 25.1 L, MCHC 31.2 L, RDW 14.6, Plt Count 270, MPV 10.6 H, Neut % (Auto) 72.0, Lymph % (Auto) 11.7, [place] % (Auto) 13.2 H, Eos % (Auto) 2.3, Baso % (Auto) 0.5, Neut # (Auto) 2.8, Lymph # (Auto) 0.5 L, [place] # (Auto) 0.5, Eos # (Auto) 0.1, Baso # (Auto) 0.0, Potassium 3.2 L, Chloride 106, Carbon Dioxide 26, BUN 7, Creatinine 0.80, Estimated Creat Clear 185, Estimated GFR 91, Est GFR ( Amer) 111, Glucose 98, Calcium 9.4, Serum HCG, Qual Negative 07/01/24 17:25 07/01/24 17:25 Orders (Tests/Meds): ED MEDICATIONS Discontinued Medications Generic Name Dose Route Start Last Admin Trade Name Freq PRN Reason Stop Dose Admin Acetaminophen 1,000 mg 07/01/24 18:36 07/01/24 18:37 Acetaminophen 1,000mg/100ml Vial IV 07/01/24 18:37 1,000 mg ONCE ONE Administration Ondansetron HCl 4 mg 07/01/24 17:20 07/01/24 17:35 Ondansetron 4mg/2ml Vial IV 07/01/24 17:21 4 mg ONCE ONE Administration Potassium Chloride 60 meq 07/01/24 18:26 07/01/24 18:32 Potassium Chloride 20meq Tab PO 07/01/24 18:27 60 meq ONCE ONE Administration ORDERS Category Date Time Status Chest XR 2 view (NOT portable) [XR chest 2V] Stat Exams 07/01/24 17:06 Taken BMP [Basic Metabolic Panel] Stat Lab 07/01/24 17:25 Results CBC w/Auto Diff [Complete Blood Count Auto Diff] Stat Lab 07/01/24 17:25 Completed Full Resp Panel w/COVID ([facility]) Routine Lab 07/01/24 17:32 Received Serum [HCG Qualitative, Serum] Stat Lab 07/01/24 17:25 Completed Medical Decision Narrative: In summary patient is a 19-year-old female who presents to the emergency department for evaluation of nonproductive cough headache and fever. Patient is initially normotensive at 158/99 slightly tachycardic at 103 with sinus tachycardia the bedside monitor breathing 20 times a minute satting at 99% on room air upon arrival, currently afebrile at 98.4. Sickle exam is remarkable for clear breath sounds with no adventitious sounds or increased work of breathing, no nuchal rigidity or meningeal signs, pupils equal round reactive to light and accommodation, cranial nerves II through XII are intact respiratory exam patient is awake alert and oriented person place and circumstance GCS is 15. Differential diagnosis includes postviral pneumonia versus new viral or bacterial upper respiratory tract infection. Initial workup will be conducted with CBC BMP full respiratory swab plain film chest x-ray. Initial interventions include Tylenol and ibuprofen. During blood draw patient had a vasovagal event and it occurred on the stretcher send no injury. Patient then had an episode of nausea and vomiting afterwards. She was given Zofran and fluid bolus. She suffered no otherwise ill effects. Initial workup reviewed by me and her hematologic labs are nonactionable with a normal white count no shift, and my informal interpretation of her plain film chest x-ray shows no evidence of pneumonia or acute infiltrate prior to radiology read.. Upon repeat evaluation patient is tolerating p.o.. Given this via shared decision making patient feels comfortable going home checking the portal for the full respiratory panel, she will be given a prescription for Bromfed and advised to take Tylenol alternating Motrin every 4 hours for her symptoms and close follow- up with her PCP if she has continued new or worsening signs or symptoms or return to the ER as needed. <Reynaldo Peña MD - Last Filed: 07/01/24 18:44> Vital Signs: 07/01/24 16:49 07/01/24 17:00 07/01/24 17:27 Temperature 98.4 F Temperature Source Oral Pulse Rate 97 H 106 H Pulse Rate [Right] 103 H Respiratory Rate 20 Blood Pressure 148/97 H 118/67 Blood Pressure [Right Arm] 158/99 H Blood Pressure Mean [Right Arm] 118 Blood Pressure Source [Right Arm] Automatic Cuff 02 Sat by Pulse Oximetry 99 98 97 Oxygen Delivery Method Room Air Room Air Room Air 07/01/24 17:31 07/01/24 17:35 07/01/24 17:46 Temperature Temperature Source Oral Pulse Rate 111 H 106 H Pulse Rate [Right] Respiratory Rate Blood Pressure 117/80 112/81 Blood Pressure [Right Arm] Blood Pressure Mean [Right Arm] Blood Pressure Source [Right Arm] 02 Sat by Pulse Oximetry 97 97 Oxygen Delivery Method Room Air Room Air Lab Data Lab Results 07/01/24 17:25: WBC 3.9 L, RBC 4.43, Hgb 11.1 L, Hct 35.6 L, MCV 80.4 L, MCH 25.1 L, MCHC 31.2 L, RDW 14.6, Plt Count 270, MPV 10.6 H, Neut % (Auto) 72.0, Lymph % (Auto) 11.7, [place] % (Auto) 13.2 H, Eos % (Auto) 2.3, Baso % (Auto) 0.5, Neut # (Auto) 2.8, Lymph # (Auto) 0.5 L, [place] # (Auto) 0.5, Eos # (Auto) 0.1, Baso # (Auto) 0.0, Potassium 3.2 L, Chloride 106, Carbon Dioxide 26, BUN 7, Creatinine 0.80, Estimated Creat Clear 185, Estimated GFR 91, Est GFR ( Amer) 111, Glucose 98, Calcium 9.4, Serum HCG, Qual Negative Orders (Tests/Meds): ED MEDICATIONS Discontinued Medications Generic Name Dose Route Start Last Admin Trade Name Freq PRN Reason Stop Dose Admin Acetaminophen 1,000 mg 07/01/24 18:36 07/01/24 18:37 Acetaminophen 1,000mg/100ml Vial IV 07/01/24 18:37 1,000 mg ONCE ONE Administration Ondansetron HCl 4 mg 07/01/24 17:20 07/01/24 17:35 Ondansetron 4mg/2ml Vial IV 07/01/24 17:21 4 mg ONCE ONE Administration Potassium Chloride 60 meq 07/01/24 18:26 07/01/24 18:32 Potassium Chloride 20meq Tab PO 07/01/24 18:27 60 meq ONCE ONE Administration ORDERS Category Date Time Status Chest XR 2 view (NOT portable) [XR chest 2V] Stat Exams 07/01/24 17:06 Taken BMP [Basic Metabolic Panel] Stat Lab 07/01/24 17:25 Results CBC w/Auto Diff [Complete Blood Count Auto Diff] Stat Lab 07/01/24 17:25 Completed Full Resp Panel w/COVID ([facility]) Routine Lab 07/01/24 17:32 Received Serum [HCG Qualitative, Serum] Stat Lab 07/01/24 17:25 Completed Medical Decision Narrative: In summary patient is a 19-year-old female who presents to the emergency department for evaluation of nonproductive cough headache and fever. Patient is initially normotensive at 158/99 slightly tachycardic at 103 with sinus tachycardia the bedside monitor breathing 20 times a minute satting at 99% on room air upon arrival, currently afebrile at 98.4. Sickle exam is remarkable for clear breath sounds with no adventitious sounds or increased work of breathing, no nuchal rigidity or meningeal signs, pupils equal round reactive to light and accommodation, cranial nerves II through XII are intact respiratory exam patient is awake alert and oriented person place and circumstance GCS is 15. Differential diagnosis includes postviral pneumonia versus new viral or bacterial upper respiratory tract infection. Initial workup will be conducted with CBC BMP full respiratory swab plain film chest x-ray. Initial interventions include Tylenol and ibuprofen. During blood draw patient had a vasovagal event and it occurred on the stretcher send no injury. Patient then had an episode of nausea and vomiting afterwards. She was given Zofran and fluid bolus. She suffered no otherwise ill effects. Initial workup reviewed by me and her hematologic labs are nonactionable with a normal white count no shift, and my informal interpretation of her plain film chest x-ray shows no evidence of pneumonia or acute infiltrate prior to radiology read.. Upon repeat evaluation patient is tolerating p.o.. Given this via shared decision making patient feels comfortable going home checking the portal for the full respiratory panel, she will be given a prescription for Bromfed and advised to take Tylenol alternating Motrin every 4 hours for her symptoms and close follow- up with her PCP if she has continued new or worsening signs or symptoms or return to the ER as needed. I was consulted by the DAWIT, and we discussed the complexity of the problems being addressed. I approved the treatment and management plan for this patient's care in the Emergency Department, thus performing a substantive portion of the medical decision making. Reynaldo Peña MD Critical Care <GETACHEW Johnson - Last Filed: 07/01/24 18:41> Critical Care Time Critical Care Time: Yes Attestation: On 07/01/24, the high probability of a clinically significant, sudden or life threatening deterioration of the following system(s) required my full and direct attention, intervention and personal management. The time I documented below is in addition to time spent performing reported procedures but includes the following listed in this critical care notation. Total Time Total Critical Care Time: 35
[2024-07-01 17:00] VITALS: BP 148/97; PULSE 97; O2SAT 98
--- NOTE | 2024-07-01 17:06 | XR_ITS ---
PROCEDURE INFORMATION: Exam: XR Chest Exam date and time: 07/01/2024 6:16 PM Age: 19 years old Clinical indication: Cough; Additional info: 2-week post covid cough and fever TECHNIQUE: Imaging protocol: Radiologic exam of the chest. Views: 2 views. COMPARISON: CT ABDOMEN PELVIS W CON 07/31/2021 1:12 AM FINDINGS: Lungs: Unremarkable. No consolidation. Pleural spaces: Unremarkable. No pleural effusion. No pneumothorax. Heart/Mediastinum: Unremarkable. No cardiomegaly. Bones/joints: Unremarkable. IMPRESSION: No acute findings.
[2024-07-01 17:27] VITALS: BP 118/67; PULSE 106; O2SAT 97
--- NOTE | 2024-07-01 17:27 | PC.NURSE ---
I was drawing blood and after placing IV pt become green/pale, pt was laid back into bed, at bs, pt was able to respond and vomiting at this time, wet rags placed on pt, vss, bed rail raised and monitor in place.PT reports feeling elicia before exiting room, mother at bs
[2024-07-01 17:31] VITALS: BP 117/80; PULSE 111; O2SAT 97
[2024-07-01 17:31] LABS: Basophils % 0.5 % (0.1-2.0); Eosinophils # 0.1 K/mm3 (0.0-0.4); Eosinophils % 2.3 % (0.1-12.0); Hematocrit 35.6 % (37.0-47.0); Hemoglobin 11.1 g/dL (12.2-16.2); Lymphocytes # 0.5 K/mm3 (0.7-4.5); Lymphocytes % 11.7 % (10-50); Mean Corpuscular HGB Conc 31.2 g/dL (31.8-35.4); Mean Corpuscular Hemoglobin 25.1 pg (27.0-31.2); Mean Corpuscular Volume 80.4 fl (81-99); Mean Platelet Volume 10.6 fl (7.4-10.4); Monocytes # 0.5 K/mm3 (0.1-1.0); Monocytes % 13.2 % (1.7-9.3); Neutrophils # 2.8 K/mm3 (1.8-7.8); Platelet Count 270 K/mm3 (142-424); Red Blood Count 4.43 M/mm3 (4.20-5.40); Red Cell Distribution Width 14.6 % (11.5-17.5); White Blood Count 3.9 K/mm3 (4.5-13.0)
[2024-07-01] MEDS: ONDANSETRON 4MG/2ML VIAL 4 MG IV (17:35)
[2024-07-01 17:36] LABS: Adenovirus,PCR Not Detected (NotDetected); Bordetella Pertussis Not Detected (NotDetected); Chlamydophila Pneumoniae, PCR Not Detected (NotDetected); Coronavirus 19, PCR Not Detected (NotDetected); Coronavirus 229E Not Detected (NotDetected); Coronavirus NL63 Not Detected (NotDetected); Coronavirus OC43 Not Detected (NotDetected); Coronovirus HKU1,PCR Not Detected (NotDetected); Human Metapneumovirus Not Detected (NotDetected); Influenza A, PCR Not Detected (NotDetected); Influenza AH1, PCR Not Detected (NotDetected); Influenza AH3,PCR Not Detected (NotDetected); Influenza B, PCR Not Detected (NotDetected); Mycoplasma Pneumoniae, PCR Not Detected (NotDetected); Parainfluenza 1, PCR Not Detected (NotDetected); Parainfluenza 2, PCR Not Detected (NotDetected); Parainfluenza 3, PCR Not Detected (NotDetected); Parainfluenza 4, PCR Not Detected (NotDetected); Respiratory Syncytial Virus Not Detected (NotDetected); Rhinovirus/Enterovirus Not Detected (NotDetected)
[2024-07-01 17:37] LABS: Chloride 106 mmol/L (98-107); Potassium 3.2 mmoL/L (3.5-5.1)
[2024-07-01 17:41] LABS: Blood Urea Nitrogen 7 mg/dl (7-17); Calcium 9.4 mg/dl (8.4-10.2); Carbon Dioxide 26 mmol/L (22.0-30.0); Creatinine Clearance Estimated 185 mL/min (50-200); Estimated Glomerular Filt Rate 91 ml/min (>60); GFR (African American) 111 ML/MIN (>60); Glucose 98 mg/dl (74-100)
[2024-07-01 17:46] VITALS: BP 112/81; PULSE 106; O2SAT 97
--- NOTE | 2024-07-01 17:55 | PC.NURSE ---
ROUNDED ON THE PT. THE PT VOICES THAT SHE DOES NOT NEED ANYTHING AT THIS TIME. CALL LIGHT IS WITHIN REACH OF THE PT. FAMILY MEMBER IS PRESENT AT THE BEDSIDE.
[2024-07-01] MEDS: POTASSIUM CHLORIDE 20MEQ TAB 60 MEQ PO (18:32)
[2024-07-01 18:34] LABS: HCG Qualitative, Serum Negative (Negative)
[2024-07-01] MEDS: ACETAMINOPHEN 1,000MG/100ML VIAL 1000 MG IV (18:37)
[2024-07-01 18:45] VITALS: BP 116/75; PULSE 87; RESP 17; TEMP 36.9; O2SAT 98
[2024-07-01 19:31] LABS: Influenza AH1, 2009 Detected (NotDetected)
[2024-07-01 19:56] LABS: Anion Gap 10.2 mEq/L (5-15); Sodium 139 mmol/L (136-145)
--- NOTE | 2024-07-02 21:16 | PC.NURSE ---
This patient contacted the ED regarding test results of her respiratory panel, after confirming patient name and the results of her panel were discussed showing she has H1N1 Influenza A
== END 2024-07-01 19:00 | disposition home or self-care (01) ==
PROVIDERS: Physician Assistant; Emergency Provider Emergency Medicine
DX: J22 Unspecified acute lower respiratory infection (principal); R50.9 Fever, unspecified; R05.9 Cough, unspecified; R09.81 Nasal congestion; R51.9 Headache, unspecified; R06.02 Shortness of breath; F17.290 Nicotine dependence, other tobacco product, uncomplicated
CPT/HCPCS: 71046; 80048; 84703; 85025; 87633; 96374; 96375; 99284; J0131; J2405

== ENCOUNTER 2024-09-07 15:46 | Outpatient (CLI) | payer OTHER, SELFPAY ==
[2024-09-07 17:41] LABS: HCG,Quantitative 5172 mIU/ml (0-5.42)
[2024-09-09 08:16] LABS: Progesterone 6.6 ng/mL (.)
== END 2024-09-07 23:59 | disposition home or self-care (01) ==
LOC: LAB 15:47
PROVIDERS: Visit Provider Nurse Practitioner Obstetrics & Gynecology
DX: Z32.01 Encounter for pregnancy test, result positive (principal)
CPT/HCPCS: 36415; 84144; 84702

== ENCOUNTER 2024-09-28 16:20 | Outpatient (CLI) | payer OTHER, SELFPAY ==
[2024-09-28 17:18] LABS: Basophils # 0.1 K/mm3 (0-0.2); Basophils % 0.6 % (0.1-2.0); Eosinophils # 0.2 Kmm3 (0.0-0.4); Eosinophils % 1.9 % (0.1-12.0); Hematocrit 33.5 % (37.0-47.0); Hemoglobin 10.8 g/dL (12.2-16.2); Immature Granulocytes # 0.03 10^3uL; Immature Granulocytes % 0.4 %; Lymphocytes # 1.9 K/mm3 (0.7-4.5); Lymphocytes % 23.6 % (10-50); Mean Corpuscular HGB Conc 32.2 g/dL (31.8-35.4); Mean Corpuscular Hemoglobin 27.2 pg (27.0-31.2); Mean Corpuscular Volume 84.4 fl (81-99); Mean Platelet Volume 11.6 fl (7.4-10.4); Monocytes # 0.5 K/mm3 (0.1-1.0); Monocytes % 6.4 % (1.7-9.3); Neutrophils # 5.3 K/mm3 (1.8-7.8); Neutrophils % 67.1 % (37.0-80.0); Nucleated Red Blood Cells # 0 10^3/uL; Nucleated Red Blood Cells % 0 %; Platelet Count 241 K/mm3 (142-424); Red Blood Count 3.97 M/mm3 (4.20-5.40); Red Cell Distribution Width 16.7 % (11.5-17.5); Red Cell Distribution Width-SD 51.6 fL; White Blood Count 7.9 K/mm3 (4.5-13.0)
[2024-09-29 12:51] LABS: RPR W/RFX Titers Nonreactive (Nonreactive)
[2024-09-29 21:09] LABS: Neisseria gonorrhoeae, NAA Negative (Negative)
[2024-09-30 09:23] LABS: Hepatitis B Surface Antigen Negative (Negative)
[2024-09-30 10:12] LABS: Rubella Antibodies, IgG 3.32 index (Immune >0.99)
== END 2024-09-28 23:59 | disposition home or self-care (01) ==
LOC: LAB 16:20
PROVIDERS: PCP Pediatrics; Visit Provider Nurse Practitioner Obstetrics & Gynecology
DX: Z34.01 Encounter for supervision of normal first pregnancy, first trimester (principal); Z3A.08 8 weeks gestation of pregnancy
CPT/HCPCS: 36415; 85025; 86592; 86762; 86850; 87340; 87491; 87591

== ENCOUNTER 2024-10-07 18:50 | Outpatient (CLI) | payer OTHER, SELFPAY ==
--- NOTE | 2024-10-07 15:00 | US_ITS ---
PROCEDURE: US OB CLINICAL INDICATION: COMPARISON: No exams were available for comparison FINDINGS: Transvaginal sonographic images of the pelvis were obtained. From her last menstrual period she is 9weeks 5days. An intrauterine gestational sac is present with a pole with a crown-rump length of 2.85cm This correlates to a gestational age of 9weeks 5days. WALDO will remain 05/07/2025 heart tones are present with an FHR of 170bpm. Yolk sac is noted. The yolk sac measures 5.8mm. The right ovary is seen and appears normal. The left ovary is seen and appears normal. There is no fluid in the cul-de-sac. IMPRESSION: 1. Viable embryo within the uterine cavity. A heart rate is seen. 2. Embryo measures 9 weeks 5 days which is consistent with her last menstrual period. WALDO will remain 05/07/2025. 3. Both ovaries are seen and appear normal. 4. No fluid in the cul-de-sac. Dictated by: Hussain Rodas MD 10/07/2024 17:16 Hussain Rodas MD in OV 10/07/2024 17:16
== END 2024-10-07 23:59 | disposition home or self-care (01) ==
LOC: RAD 18:51
PROVIDERS: PCP Nurse Practitioner Obstetrics & Gynecology; Visit Provider Nurse Practitioner Obstetrics & Gynecology
DX: O36.80X0 Pregnancy with inconclusive fetal viability, not applicable or unspecified (principal); Z3A.09 9 weeks gestation of pregnancy
CPT/HCPCS: 76801

== ENCOUNTER 2024-12-03 15:15 | Outpatient (CLI) | payer OTHER, SELFPAY ==
--- OUTSIDE RECORDS SUMMARY | 2024-10-20 09:30 | XMS_ITS | Encounter Summary ---
Author Organization [facility] [place] [place] [address] Care Team Providers Care Parts Technician Name Role Phone Kae Toro APRN Primary Care Provider [phone] Reason for Visit * Reason Comments Establish Care Encounter Details Date Type Department Care Team (Late st Contact Info) Description 10/20/2024 9:30 AM EDT Office Visit [facility] [place] [address] [place] [address] Kae Toro APRN [address] [place] [address] Annual physical exam (Primary Dx); Encounter to establish care; 11 weeks gestation of ; Vapes nicotine containing substance; Generalized anxiety disorder; Postural kyphosis of thoracic region Social History Tobacco Use Types Packs/Day Years Used Date Smoking Tobacco: Never Smokeless Tobacco: Never Tobacco Cessation:Counseling Given: Not Answered Alcohol Use Standard Drinks/Week Comments Never 0 (1 standard drink = 0.6 oz pur e alcohol) PHQ-2 Answer Date Recorded PHQ-2 Total Score 0 10/20/2024 Sexually Active Control Partners Comments Yes Estimated Date of Delivery Comme nts Yes 05/07/2025 Sex and Gender Information Value Date Recorded Sex Assigned at Not on file Legal Sex Female 2:17 PM EDT Gender Identity Not on file Sexual Orientation Not on file documented as of this encounter Last Filed Vital Signs Vital Sign Reading Time Taken Comments Blood Pressure 122/84 10/20/2024 9:23 AM EDT Pulse 86 10/20/2024 9:23 AM EDT Temperature 36.4 C (97.5 F) 10/20/2024 9:23 AM EDT Respiratory Rate 18 10/20/2024 9:23 AM EDT Oxygen Saturation 98% 10/20/2024 9:23 AM EDT Inhaled Oxygen Concentration - - Weight 94.3 kg (208 lb) 10/20/2024 9:23 AM EDT Height 169.2 cm (5' 6.6 ) 10/20/2024 9:23 AM EDT Body Mass Index 32.97 10/20/2024 9:23 AM EDT documented in this encounter Functional Status * Cognitive and Functional Status Question Answer Date of Assessment Author Is the person deaf or does he/she have serious difficulty hearing? No 10/20/2024 9:23 AM Ally Quijano CCMA Is the person blind or does he/she have serious difficulty seeing even when wearing glasses? No 10/20/2024 9:23 AM Ally Quijano CCMA Does this person have seriou s difficulty walking or climbing stairs? No 10/20/2024 9:23 AM Ally Quijano CCMA Does this person have difficulty dressing or bathing? No 10/20/2024 9:23 AM Ally Quijano CCMA * Is the person deaf or does he/she have serious difficulty hearing? Answer Date of Assessment Author No 10/20/2024 9:23 AM Liset Quijano CCMA * Is the person blind or does he/she have serious difficulty seeing even when wearing glasses? Answer Date of Assessment Author No 10/20/2024 9:23 AM Liset Quijano CCMA * Does this person have serious difficulty walking or climbing stairs? Answer Date of Assessment Author No 10/20/2024 9:23 AM Liset Quijano CCMA * Does this person have difficulty dressing or bathing? Answer Date of Assessment Author No 10/20/2024 9:23 AM Liset Quijano CCMA * Because of a physical, mental or emotional condition, does this person have difficulty doing errands alone such as visiting a doctor's office or shopping? Answer Date of Assessment Author No 10/20/2024 9:23 AM Liset Quijano CCMA * PHQ-9 Total Score Answer Date of Assessment Author 0 10/20/2024 9:23 AM Liset Quijano CCMA * Question Answer Date of Assessment Author Little interest or pleasure in doing things 0 10/20/2024 9:23 AM Ally Quijano CCMA Feeling down, depressed, or hopeless 0 10/20/2024 9:23 AM Ally Quijano CCMA PHQ-2 Total Score 0 10/20/2024 9:23 AM Ally Quijano CCMA * PHQ-2 Total Score Answer Date of Assessment Author 0 10/20/2024 9:23 AM Liset Quijano CCMA * Question Answer Date of Assessment Author Feeling Nervous, Anxious, or on Edge 0 10/20/2024 9:23 AM Ally Quijano CCMA Not Being Able to Stop or Control Worrying 0 10/20/2024 9:23 AM Ally Quijano CCMA Worrying too Much About Different Things 0 10/20/2024 9:23 AM Ally Quijano CCMA Trouble Relaxing 0 10/20/2024 9:23 AM Ally Zayas CCMA Being so Restless That it is Hard to Sit Still 0 10/20/2024 9:23 AM Ally Quijano CCMA Becoming Easily Annoyed or Irritable 0 10/20/2024 9:23 AM Ally Quijano CCMA Feeling Afraid as if Something Awful Might Happen 0 10/20/2024 9:23 AM Ally Quijano CCMA PARADISE-7 Total Score 0 10/20/2024 9:23 AM Ally Quijano CCMA documented as of this encounter Mental Status * Cognitive and Functional Status Question Answer Entry Date Author Because of a physical, menta l or emotional condition, does this person have difficulty doing errands alone such as visiting a doctor's office or shopping? No 10/20/2024 9:23 AM Ally Quijano CCMA Because of a physical, menta l or emotional condition, does this person have serious difficulty concentrating, remembering or making decisions? No 10/20/2024 9:23 AM EDT Ally Vines CCMA * Because of a physical, mental or emotional condition, does this person have serious difficulty concentrating, remembering or making decisions? Answer Entry Date Author No 10/20/2024 9:23 AM Liset Quijano CCMA documented in this encounter Ordered Prescriptions Prescription Sig Dispense Quantity Refills Last Filled Start Date End Date busPIRone (BUSPAR) 10 mg Oral TabletIndications:G eneralized anxiety disorder Take 1 Tablet by mouth daily as needed. 30 Tablet 2 10/20/2024 documented in this encounter Progress Notes * Kae ToroJAMES - 10/20/2024 9:30 AM EDT Assessment & Plan Annual physical exam Encounter to establish care 11 weeks gestation of Established with OB On PNV and Progesterone for 1st trimester. Vapes nicotine containing substance Encouraged cessaton Generalized anxiety disorder Rx for buspar daily as needed. Orders: busPIRone (BUSPAR) 10 mg Oral Tablet; Take 1 Tablet by mouth daily as needed. Postural kyphosis of thoracic region Encouraged good posture, proper supportive bra, consider tylenol as needed Progress Note: Vitals: 10/20/24 0923 BP: 122/84 Pulse: 86 Resp: 18 Temp: 97.5 ??F (36.4 ??C) TempSrc: Forehead SpO2: 98% Weight: 208 lb (94.3 kg) Height: 5' 6.6 (1.692 m) Body mass index is 32.97 kg/m??. SUBJECTIVE: Chief Complaint Patient presents with Establish Care HPI: Annual exam. Encounter to establish care. First , 11w4d, on PNV and progesterone. OB Dr. Wynn at [facility]. Baby father will be involved. Lives with mother, father and boyfriend. Good support. Welcomes . No sig PMh or SH Vapes Only concern is for Anxiety, irritable, occasional depression. Has had for years. Feels it is ok for now but would like something for as needed. Large breast, back pain, considering breast reduction after pregnancies. Review of Systems Constitutional: Negative for activity change, appetite change, fatigue, fever and unexpected weightchange. HENT: Negative for congestion, ear pain, hearing loss, rhinorrhea, sneezing and sore throat. Eyes: Negative for photophobia, pain, discharge and visual disturbance. Respiratory: Negative for cough, shortness of breath, wheezing and stridor. Cardiovascular: Negative for chest pain, palpitations and leg swelling. Gastrointestinal: Negative for abdominal pain, constipation, diarrhea, nausea and vomiting. Endocrine: Negative for polydipsia, polyphagia and polyuria. Genitourinary: Positive for menstrual problem (.). Negative for decreased urine volume, dysuria, frequency and urgency. Musculoskeletal: Negative for back pain, gait problem and joint swelling. Skin: Negative for color change, rash and wound. Neurological: Negative for dizziness, weakness, numbness and headaches. Hematological: Negative for adenopathy. Does not bruise/bleed easily. Psychiatric/Behavioral: Positive for agitation (associated with anxiety.) and decreased concentration. Negative for confusion and sleep disturbance. The patient is not nervous/anxious. OBJECTIVE: Physical Exam Constitutional: Appearance: Normal appearance. She is well-developed. HENT: Head: Normocephalic and atraumatic. Right Ear: Tympanic membrane normal. Left Ear: Tympanic membrane normal. Nose: Nose normal. Mouth/Throat: Mouth: Mucous membranes are moist. Eyes: Pupils: Pupils are equal, round, and reactive to light. Neck: Thyroid: No thyromegaly. Cardiovascular: Rate and Rhythm: Normal rate and regular rhythm. Heart sounds: Normal heart sounds. No murmur heard. No friction rub. No gallop. Pulmonary: Effort: Pulmonary effort is normal. Breath sounds: Normal breath sounds. No wheezing or rales. Abdominal: Palpations: Abdomen is soft. Tenderness: There is no abdominal tenderness. There is no guarding or rebound. Musculoskeletal: General: Deformity (thoracic kyphosis.) present. Cervical back: Normal range of motion and neck supple. Lymphadenopathy: Cervical: No cervical adenopathy. Skin: General: Skin is warm and dry. Coloration: Skin is not pale. Findings: No erythema or rash. Neurological: Mental Status: She is alert and oriented to person, place, and time. Cranial Nerves: No cranial nerve deficit. Psychiatric: Behavior: Behavior normal. Thought Content: Thought content normal. Judgment: Judgment normal. documented in this encounter Plan of Treatment Not on file documented as of this encounter Goals Goal Patient Goal Type Associated Problems Recent Progress Patient-Stated? Author Maintain a healthy diet, exercise regularly and maintain an ideal body weight General No Kae Toro APRN documented as of this encounter Visit Diagnoses Diagnosis Annual physical exam- Primary Routine general medical examination at a health care facility Encounter to establish care Reserved for inherently not codable concepts WITHOUT codable children 11 weeks gestation of state, incidental Vapes nicotine containing substance Generalized anxiety disorder Postural kyphosis of thoracic region Kyphosis (acquired) (postural) documented in this encounter Discontinued Medications Medication Sig Discontinue Reason Start Date End Da te PROMETHEGAN 25 mg Rect Suppository INSERT 1/2 SUPPOSITORY RECTALLY EVERY 4 TO 6 HOURS NEEDED FOR NAUSEA AND VOMITING DELETE-Therapy completed 09/15/2024 10/20/2024 documented as of this encounter Historical Medications * This list may reflect changes made after this encounter. promethazine (PHENERGAN) 12.5 mg Oral Tablet TAKE 1 TABLET BY MOUTH EVERY 4 TO 6 HOURS NEEDED FOR NAUSEA AND VOMITING 09/15/2024 progesterone (PROMETRIUM) 200 mg Oral Capsule INSERT 1 CAPSULE VAGINALLY AT BEDTIME 09/09/2024 28 mg iron- 800 mcg Oral Tablet Take 1 Tablet by mouth daily. 09/29/2024 PROMETHEGAN 25 mg Rect Suppository INSERT 1/2 SUPPOSITORY RECTALLY EVERY 4 TO 6 HOURS NEEDED FOR NAUSEA AND VOMITING 09/15/2024 5 added in this encounter Care Teams Parts Technician Relationship Specialty Start Date End Date Kae Toro APRN [address] [place], [place] [address] PCP - General Nurse Practitioner-Family 10/20/24 documented as of this encounter
--- OUTSIDE RECORDS SUMMARY | 2024-12-03 15:21 | XMS_ITS | Clinical Summary ---
Author Organization [facility] Address [address] [place] [address] Care Team Providers Care Groundman/Lineman Name Role Phone Rosie Fraga Primary Care Provider Unavailab le Allergies No known active allergies Medications No known medications Social History Tobacco Use Types Packs/Day Years Used Date Smoking Tobacco: Never Passive Smoke Exposure: Never Smokeless Tobacco: Never Alcohol Use Standard Drinks/Week Comments Not Currently 0 (1 standard drink = 0.6 oz pur e alcohol) Comments No Sex and Gender Information Value Date Recorded Sex Assigned at Not on file Legal Sex Female 12:49 AM EDT Gender Identity Not on file Sexual Orientation Not on file Last Filed Vital Signs Vital Sign Reading Time Taken Comments Blood Pressure 119/82 03/06/2023 11:53 AM EDT Pulse 99 03/06/2023 11:53 AM EDT Temperature 36.8 C (98.3 F) 03/06/2023 10:56 AM EDT Respiratory Rate - - Oxygen Saturation 98% 03/06/2023 10:56 AM EDT Inhaled Oxygen Concentration - - Weight 113 kg (250 lb) 03/06/2023 10:56 AM EDT Height 167.6 cm (5' 6 ) 03/06/2023 10:56 AM EDT Body Mass Index 40.35 03/06/2023 10:56 AM EDT Plan of Treatment Health Maintenance Due Date Last Done Comments [facility]-Depression Screening 2004 [facility]-HIV Screening 2004 [facility]-Hepatitis C Screening 2004 [facility]-/Child/Adol SDOH Screenings 2004 [facility]- SDOH Screenings 2022 [facility]-Adult SDOH Screenings 2022 [id number] Vaccine ( season) 2024 [facility]-Influenza Vaccine (#1) 01/11/202505/30, 02/25/2017, 04/19/2015, Additional history exists [facility]-DTaP,Tdap,and Td Vaccines (8 - Td or Tdap) 12/27/2026 12/27/2016, 08/30/2015, 10/25/2009, Additional history exists [facility]-Zoster Vaccines (1 of 2) 2054 10/25/2009, 06/08/2005 [facility]-Pneumococcal Vaccine: Pediatrics (0 to 5 Years) and At-Risk Patients (6 to 49 Years) Aged Out 2004 No longer eligible based on patient's age to complete this topic [facility]-Hepatitis B Vaccines Completed 005, 2004, 2004 [facility]-HIB Vaccines Completed 02/21/2006, , 2004, Additional history exists [facility]-IPV Vaccines Completed 10/25/2009, 07/2008, 2004, Additional history exists [facility]-Varicella Vaccines Completed 10/25/2009, 2005 HPV Vaccines Completed 12/27/2016, 08/30/2015 [facility]-Hepatitis A Vaccines Completed 018, 09/27/2017, 07/11/2017 [facility]-Obesity Intervention Completed 03/06/2023 [facility]-Rotavirus Vaccines Aged Out No lo nger eligible based on patient's age to complete this topic Insurance [employer]ET[employer] [facility] MEDICAID Care Teams Groundman/Lineman Relationship Specialty Start Date End Date Rosie [place] [address] PCP - General Application Spec 03/06/23
--- OUTSIDE RECORDS SUMMARY | 2024-12-03 15:21 | XMS_ITS | Clinical Summary ---
Author Organization [facility] Address [address] [place] [address] Phone Care Team Providers Care Gem Setter Name Role Phone Kae Toro APRN Primary Care Provider Allergies Active Allergy Reactions Criticality Noted Date Comments Penicillins Other (See Comments) 10/20/2024 migraine Medications 28 mg iron- 800 mcg Oral Tablet Take 1 Tablet by mouth daily. 5 Active progesterone (PROMETRIUM) 200 mg Oral Capsule INSERT 1 CAPSULE VAGINALLY AT BEDTIME 5 Active promethazine (PHENERGAN) 12.5 mg Oral Tablet TAKE 1 TABLET BY MOUTH EVERY 4 TO 6 HOURS NEEDED FOR NAUSEA AND VOMITING 5 Active busPIRone (BUSPAR) 10 mg Oral TabletIndicatio ns:Generalized anxiety disorder Take 1 Tablet by mouth daily as needed. 30 Tablet 2 5 Active Active Problems Estimated Date of Delivery Comme nts Yes 05/07/2025 No known active problems Encounters Date Type Department Care Team Description 10/20/2024 9:30 AM EDT Office Visit [facility] [place] [address] [place] [phone] Kae Toro APRN Annual physical exam (Primary Dx); Encounter to establish care; 11 weeks gestation of ; Vapes nicotine containing substance; Generalized anxiety disorder; Postural kyphosis of thoracic region from Last 3 Months Immunizations Immunization Administration Dates Next Due DTaP, Unspecified Formulation 10/25/2009 ,06/15/2008,02/21/2006,11/22,2004,2004 HPV 9 Valent 08/30/2015 HPV Quadrivalent 12/27/2016 Hep B/HiB 2004 Hepatitis A, Ped/Adol, 2 Dose 04/01/2018, 018,07/11/2017 Hepatitis B, Ped/Adol 2004,2004 HiB (PRP-OMP) 02/21/2006 HiB, Unspecified Formulation 2004,09/21/19 05 IPV 10/25/2009, 9,2004,09/20,2004 Influenza Seasonal Injectable 05/30/2018 ,02/25/2017,04/19/2015,06/12,07/06/2011,02/11/2009,04/19/2008 ,03/25/2007,06/12/2006 LAST MANUFACTURED 2010-Pneum ococcal Conjugate 7 Valent 2004 MMR 10/25/2009,06/15/2008,02/21/2006 Meningococcal B,OMV 07/26/2020 Meningococcal Conjugate 07/26/2020 Meningococcal MCV4, Unspecif ied Formulation 08/30/2015 Meningococcal Polysaccharide 12/27/2016 Tdap 12/27/2016,08/30/2015 Varicella 10/25/2009,06/08/2005 Surgical History Surgery Date Site/Laterality Comments TYMPANOSTOMY TUBE PLACEMENT FOREIGN BODY REMOVAL rock from ear. Medical History Medical History Date Comments Asthma Lumbar stress fracture Family History Medical History Relation Name Comments Cardiomyopathy Father Mikhail Hypertension Father Mikhail No Known Problems Half-Sister Arthritis Mother Silvia Atrial fibrillation Mother Silvia Hypertension Mother Silvia Parkinson's Disease Mother Silvia Diabetes Paternal Grandmother Hypertension Paternal Grandmother Relation Name Status Comments Father Mikhail Alive Half-Sister Alive Maternal Grandfather Alive Maternal Grandmother Alive Mother Silvia Alive Paternal Grandfather Alive Paternal Grandmother Alive Social History Tobacco Use Types Packs/Day Years [...] on file Sexual Orientation Not on file Obstetrics History Para Term AB IAB SAB Ectopic Multiple Livin g Live Births 1 Date Outcome GA Total Labor Labor/2nd/3rd Weight Sex Type Anes PTL Marissa A1 A5 Name Clin Current Last Filed Vital Signs Vital Sign Reading [...] Mass Index 32.97 10/20/2024 9:23 AM EDT Plan of Treatment Health Maintenance Due Date Last Done Comments Chlamydia Screening 2020 Meningococcal B Vaccine (2 of 2 - Bexsero SCDM 2-dose series) 01/26/2021 07/26/2020 COVID-19 Vaccine (1 - season) 2024 Influenza Vaccine (#1) 2025 9, 02/25/2017, 04/19/2015, Additional history exists RSV or 60+ (1 - Risk 1-dose series) 03/12/2025 Annual Wellness Exam 10/20/2025 10/20/2024 DTaP/TDaP/Td (8 - Td or Tdap) 12/27/2026 12/27/2016, 08/30/2015, 10/25/2009, Additional history exists Pneumococcal Vaccine 0-49 Aged Out 2004 No longer eligible based on patient's age to complete this topic Hepatitis B Vaccine Completed 2004, 2004, 2004 HPV Completed 12/27/2016, 08/30/2015 Goals Goal Patient Goal Type Associated Problems Recent Progress Patient-Stated? Author Maintain a healthy diet, exercise regularly and maintain an ideal body weight General No Kae Toro APRN Insurance [employer] [facility] [place] [place] [address] Care Teams Gem Setter Relationship Specialty Start Date End Date Kae [place] [address] [address] [place] [address] PCP - General Nurse Practitioner-Family 10/20/24
== END 2024-12-03 23:59 | disposition home or self-care (01) ==
LOC: RAD 15:16
PROVIDERS: PCP Pediatrics; Visit Provider Obstetrics & Gynecology
DX: Z34.82 Encounter for supervision of other normal pregnancy, second trimester (principal); Z3A.00 Weeks of gestation of pregnancy not specified

== ENCOUNTER 2024-12-08 23:29 | Emergency (ER) | payer OTHER, SELFPAY ==
--- NOTE | 2024-12-08 23:46 | HMH.EDGENADL ---
Discharge Plan Disposition Patient Disposition: Home, Self-Care Prescriptions Prescriptions: No Action buspirone 10 mg tablet PO DAILY PRN Patient Comments: TAKE 1 TABLET BY MOUTH ONCE A DAY NEEDED promethazine 12.5 mg tablet 12.5 mg PO Q4-6H PRN (Reason: nausea and vomiting) Qty: 30 2RF Classic 28 mg iron- 800 mcg tablet 1 tab PO DAILY Qty: 30 11RF Referrals Follow up/Referrals: Regino Mccoy [Primary Care Provider, Medical] - See instructions Activity Restrictions/Add. Instructions Additional Instructions/Restrictions: Please follow-up with your primary care provider. Please return to the emergency department if you develop any new or worsening symptoms or become concerned for your health. Clinical Impressions Clinical Impression: Headache Qualifiers: Headache chronicity pattern: acute headache Intractability: not intractable Print Language Print Language: Afghan Discharge ED Provider: Niles Donohue General Adult HPI General Chief complaint: Headache Stated complaint: 18 wks ante,migraine,vomiting,dizziness,lighthead Time Seen by Provider: 12/08/24 23:35 History of Present Illness HPI narrative: 19-year-old female, 18 weeks , presents with recurrent headache. Reports it has been happening on and off for the last several days. She does get migraines normally, but these feel slightly worse than normal. She has had some nausea without vomiting. Reports a couple of episodes of diarrhea. She denies any urinary symptoms of any kind. She did not take anything at home for pain today. Related Data Home Medications ?Medication ?Instructions ?Recorded ?Confirmed buspirone 10 mg tablet mg PO DAILY PRN 10/27/24 11/24/24 Previous Rx's ?Medication ?Instructions ?Recorded promethazine 12.5 mg tablet 12.5 mg PO Q4-6H PRN nausea and 09/15/24 vomiting #30 tabs vits no.126-ferrous fum 1 tab PO DAILY #30 tabs 09/29/24 28 mg iron-folic acid 800 mcg tablet (Classic ) Allergies Allergy/AdvReac Type Severity Reaction Status Date / Time Penicillins Allergy Verified 11/24/24 15:29 [facility] Disclaimer: The information contained in this section may have been updated after the patient was seen, as this information can be updated by other users. Medical History (Updated 12/09/24 @ 00:40 by Niles Donohue MD) Encounter for supervision of other normal , second trimester Depression Anxiety Migraine Asthma Surgical History History of tympanostomy tube placement Social History Smoking Status: Current every day smoker tobacco type: e-cigarettes alcohol intake: never substance use type: denies use current occupational status: student Travel in the last 8 weeks?: None household members: family housing: house Have you lived/traveled outside US in past 30 days?: No Contact w/someone who lives/traveled outside US past 30 days?: No Exposure to someone with infectious disease in past 14 days?: No Do you have a fever (greater than 100.4 F or 38 C)?: No Have you tested positive for COVID-19?: No Exposed to someone with COVID-19 in past 14 days?: No Do you have a sore throat?: No Do you have a cough?: No Do you have any weakness?: No Do you have any diarrhea?: No Are you experiencing any unusual bleeding?: No Do you have any muscle aches/pain?: No Do you have any abdominal pain?: No Are you experiencing loss of taste or smell?: No Other Medical History Have you received the Flu Vaccine for this season: No Have you received the Pneumonia Vaccine: No ROS Obtained: Yes All systems reviewed & no additional complaints except as documented Physical Exam General General appearance: alert and in no apparent distress Head Head exam: atraumatic and normocephalic Eye Eye exam: Present normal appearance, PERRL and EOMI ENT ENT exam: Present normal oropharynx and normal external ear exam Neck Neck exam: Present normal inspection and full ROM Chest Chest inspection: Present normal inspection and symmetric chest wall rise; Absent tenderness Respiratory Respiratory exam: Present normal lung sounds bilaterally; Absent respiratory distress Cardiovascular Cardiovascular exam: Present regular rate and normal rhythm Abdominal Exam Abdominal exam: Present soft; Absent distention, tenderness or guarding Extremities Exam Extremities exam: Present normal inspection; Absent edema or joint swelling Back Exam Back exam: Present normal inspection; Absent tenderness Neurological Exam Neurological exam: Present alert and oriented X3; Absent motor sensory deficit Psychiatric Psychiatric exam: Present normal affect and normal mood Skin Skin exam: Present warm, dry and normal color Lymphatic Lymphatic Findings: no adenopathy Medical Decision Making Medical Records Medical records reviewed: Yes I reviewed the patient's medical records. Screening: Per USPSTF and CDC recommendations, given the prevalence of disease in our region, it is our hospital?s policy to screen for HIV and viral Hepatitis for all patients aged 18 and over and those with ongoing risk factors. Prem Inquiry Pt receiving controlled substance: No Prem was queried for this patient: No Vital Signs: 12/08/24 23:54 12/09/24 00:37 12/09/24 00:40 Temperature 98.5 F Temperature Source Oral Pulse Rate 74 Pulse Rate [Left] 105 H Respiratory Rate 14 Blood Pressure 130/86 Blood Pressure [Right Arm] 120/97 H Blood Pressure Mean 95 Blood Pressure Mean [Right Arm] 104 Blood Pressure Source Blood Pressure Source [Right Arm] Automatic Cuff Blood Pressure Position Blood Pressure Position [Right Arm] Sitting 02 Sat by Pulse Oximetry 98 97 Oxygen Delivery Method Room Air 12/09/24 00:40 12/09/24 00:45 12/09/24 00:55 Temperature 98.5 F Temperature Source Oral Pulse Rate 74 77 77 Pulse Rate [Left] Respiratory Rate 16 Blood Pressure 130/86 Blood Pressure [Right Arm] Blood Pressure Mean Blood Pressure Mean [Right Arm] Blood Pressure Source Automatic Cuff Blood Pressure Source [Right Arm] Blood Pressure Position Sitting Blood Pressure Position [Right Arm] 02 Sat by Pulse Oximetry 99 99 Oxygen Delivery Method Room Air Lab Data Lab results reviewed: Yes I reviewed the patient's lab results. Orders (Tests/Meds): ED MEDICATIONS Discontinued Medications Generic Name Dose Route Start Last Admin Trade Name Freq PRN Reason Stop Dose Admin Acetaminophen 1,000 mg 12/08/24 23:49 12/09/24 00:01 Acetaminophen 1,000mg/100ml Vial IV 12/08/24 23:50 1,000 mg ONCE ONE Administration Lactated Ringer's 1,000 mls @ 999 mls/hr 12/08/24 23:45 12/09/24 00:01 Lactated Ringer's 1000 Ml Bag IV 12/09/24 00:45 999 mls/hr .Q1H1M HEATHER Administration Magnesium Sulfate 2 gm in 50 mls @ 150 mls/hr 12/08/24 23:49 12/09/24 00:14 Magnesium Sulfate 2gm/50ml Premix IV 12/09/24 00:08 150 mls/hr ONCE ONE Administration Metoclopramide HCl 10 mg 12/08/24 23:49 12/09/24 00:11 Metoclopramide Hcl 10mg/2ml Vial IVP 12/08/24 23:50 10 mg ONCE ONE Administration Medical Decision Narrative: 19-year-old female, 18 weeks , with history of migraines, presents for intermittent headache over the last few days. History was obtained via interactive discussion with patient. On arrival, patient is [afebrile, hemodynamically stable, satting appropriately, alert, oriented x4, GCS 15], moving all extremities spontaneously. Full physical exam performed and significant for no significant physical exam abnormalities. Differential includes but is not limited to tension headache, migraine headache, intracranial thrombosis,. Patient was given migraine cocktail including Tylenol, mag, Reglan, fluid bolus for symptomatic management. Blood work, CT imaging was considered, but deemed unnecessary due to benign physical exam, history of migraine headaches.. Given patient history, exam and workup, patient's presentation most likely represents migraine headache in . On reassessment patient reports significant symptomatic improvement. She was discharged in stable condition with return precautions.. Procedures Risk/Benefits of Procedure(s) Were Explained: Yes Critical Care Critical Care Time Critical Care Time: No
[2024-12-08 23:54] VITALS: BP 120/97; PULSE 105; RESP 14; TEMP 36.9; O2SAT 98; BMI 33.0
[2024-12-09] MEDS: ACETAMINOPHEN 1,000MG/100ML VIAL 1000 MG IV (00:01)
[2024-12-09] MEDS: LACTATED RINGERS 1000ML 1,000 ML 999 ML IV (00:01)
[2024-12-09] MEDS: METOCLOPRAMIDE HCL 10MG/2ML VIAL 10 MG IVP (00:11)
[2024-12-09] MEDS: MAGNESIUM SULFATE IN WATER 2 GM/50 ML PIGGYBACK IV (00:14)
[2024-12-09 00:37] VITALS: PULSE 74; O2SAT 97
[2024-12-09 00:40] VITALS: BP 130/86; PULSE 74; O2SAT 99
[2024-12-09 00:45] VITALS: PULSE 77; O2SAT 99
[2024-12-09 00:55] VITALS: BP 130/86; PULSE 77; RESP 16; TEMP 36.9; O2SAT 99
== END 2024-12-09 00:56 | disposition home or self-care (01) ==
PROVIDERS: Emergency Provider Emergency Medicine; PCP Pediatrics
DX: R51.9 Headache, unspecified (principal); J45.909 Unspecified asthma, uncomplicated
CPT/HCPCS: 96361; 96365; 96375; 99284; J0131; J2765; J3475; J7120

== ENCOUNTER 2024-12-18 14:20 | Outpatient (CLI) | payer OTHER, SELFPAY ==
--- OUTSIDE RECORDS SUMMARY | 2024-10-20 09:30 | XMS_ITS | Encounter Summary ---
Author Organization [facility] [place] [address] Care Team Providers Care Veterinary Pharmacologist Name Role Phone Kae Toro INSPECTION CLERK Primary Care Provider [phone] Reason for Visit * Reason Comments Establish Care Encounter Details Date Type Department Care Team (Late st Contact Info) Description 10/20/2024 9:30 AM EDT Office Visit [facility] [place] [address] [place] [phone] Kae Toro APRN [address] [place], [place] [id number] Annual physical exam (Primary Dx); Encounter to [...] serious difficulty hearing? No 10/20/2024 9:23 AM EDAlly Carnes CCMA Is the person blind or does he/she have serious difficulty seeing even when wearing glasses? No 10/20/2024 9:23 AM EDAlly Carnes CCMA Does this person have seriou s difficulty walking or climbing stairs? No 10/20/2024 9:23 AM EDAlly Carnes CCMA Does this person have difficulty dressing or bathing? No 10/20/2024 9:23 AM EDAlly Carnes CCMA * Is the person deaf or [...] of Assessment Author 0 10/20/2024 9:23 AM Lsiet Quijano CCMA * Question Answer Date of [...] or making decisions? No 10/20/2024 9:23 AM Ally Quijano CCMA * Because of a physical, [...] in this encounter Progress Notes * Kae Toro, JAMES - 10/20/2024 9:30 AM EDT Assessment & [...] PNV and progesterone. OB Dr. Wynn at [facility]. Baby father will be involved. Lives with [...] HOURS NEEDED FOR NAUSEA AND VOMITING 09/15/2024 28 mg iron- 800 mcg Oral Tablet Take 1 Tablet by mouth daily. 09/29/2024 PROMETHEGAN 25 mg Rect Suppository INSERT 1/2 SUPPOSITORY RECTALLY EVERY 4 TO 6 HOURS NEEDED FOR NAUSEA AND VOMITING 09/15/2024 5 progesterone (PROMETRIUM) 200 mg Oral Capsule INSERT 1 CAPSULE VAGINALLY AT BEDTIME 09/09/2024 5 added in this encounter Care Teams Veterinary Pharmacologist Relationship Specialty Start Date End Date Kae Troo APRN [address] [place], [place] [address] PCP - General Nurse Practitioner-Family 10/20/24 documented as of this encounter
--- OUTSIDE RECORDS SUMMARY | 2024-12-10 15:30 | XMS_ITS | Encounter Summary ---
Author [place] [address] Care Team Providers Care Tow Boat Captain Name Role Phone Kae Toro APRN Primary Care Provider [phone] Reason for Visit * Reason Comments ED Follow-up Feeling better now Migraine Encounter Details Date Type Department Care Team (Late st Contact Info) Description 12/10/2024 3:30 PM EDT Office Visit [facility] [place] [address] [place] [address] Kae Toro APRN [address] [place] [address] Hospital discharge follow-up (Primary Dx); Viral illness; [...] - none Medical Complexity: - ([place] [id number]) moderate medical complexity, communication occurred within 2 business days of discharge, and todays visit is within 14 days of discharge Viral illness Symptoms improving since onset UA with dehydration She is able to keep fluids down Increase fluids, consider electrolyte drinks [place] diet and advance as tolerated She sees [...] urogenital commensal organisms. 12/12/2024 4:12 AM EDT [employer] Urine STRUCTURE OF URINARY TRACT PROPER / Unknown 12/10/2024 3:59 PM EDT 12/10/2024 3:59 PM EDT Kae Toro APRN MICROBIOLOGY - GENERAL HELEN DIAS Final Result [employer] [address] [place] [id number] * (ABNORMAL) SEP URINALYSIS POC (12/10/2024 3:57 [...] ORDERABL ES Final Result [facility] [place] [address] [place] [id number] documented in this encounter Visit Diagnoses Diagnosis [...] documented as of this encounter Care Teams Tow Boat Captain Relationship Specialty Start Date End Date Kae Toro APRN [address] [place] [address] PCP - General Nurse Practitioner-Family 10/20/24 documented as of this encounter
--- OUTSIDE RECORDS SUMMARY | 2024-12-18 14:21 | XMS_ITS | Encounter Summary ---
Author Organization [place] [address] Care Team Providers Care Retail Merchandiser Technician Name Role Phone Kae Toro CHEMICAL OPERATIONS AND TRAINING Primary Care Provider [phone] Encounter Details Date Type Department Care Team (Late st Contact Info) Description 12/12/2024 Results Follow-Up [facility] [address] [place] [address] Kae Toro APRN [address] [place] [address] URINE CULTURE (NO STAIN) Social History Tobacco Use Types Packs/Day Years [...] on file documented as of this encounter Functional Status * Is the [...] 10/20/2024 9:23 AM Liset Quijano CCMA documented as of this encounter Mental Status * Because of a physical, mental or emotional condition, does this person have serious difficulty concentrating, remembering or making decisions? Answer Entry Date Author No 10/20/2024 9:23 AM Liset Quijano CCMA documented in this encounter Plan of Treatment Not on file documented as of this encounter Goals Goal Patient Goal Type Associated Problems Recent Progress Patient-Stated? Author Maintain a healthy diet, exercise regularly and maintain an ideal body weight General No Kae Toro APRN documented as of this encounter Visit Diagnoses Not on filedocumented in this encounter Care Teams Retail Merchandiser Technician Relationship Specialty Start Date End Date Kae Toro APRN [address] [place] [address] PCP - General Nurse Practitioner-Family 10/20/24 documented as of this encounter
--- OUTSIDE RECORDS SUMMARY | 2024-12-18 14:21 | XMS_ITS | Clinical Summary ---
Author Organization [facility] Address [address] [facility] [address] [place] [address] Phone Care Team Providers Care Occupancy Specialist Name Role Phone Kae Toro APRN Primary Care Provider [phone] Allergies Active Allergy Reactions Criticality Noted Date Comments Penicillins Other (See Comments) 10/20/2024 migraine Medications 28 mg iron- 800 mcg Oral Tablet Take 1 Tablet by mouth daily. 5 Active promethazine (PHENERGAN) 12.5 mg Oral Tablet TAKE 1 TABLET BY MOUTH EVERY 4 TO 6 HOURS NEEDED FOR NAUSEA AND VOMITING 5 Active busPIRone (BUSPAR) 10 mg Oral TabletIndicati ons:Generalize d anxiety disorder Take 1 Tablet by mouth daily as needed. 30 Tablet 2 5 Active progesterone (PROMETRIUM) 200 mg Oral Capsule INSERT 1 CAPSULE VAGINALLY AT BEDTIME 5 12/11/19 25 Discontinue d(Patient Reported not taking medication) Active Problems Estimated Date of Delivery Comme nts Yes 05/07/2025 No known active problems Encounters Date Type Department Care Team Description 12/12/2024 Results Follow-Up [facility] [address] [place] [phone] Kae Toro APRN URINE CULTURE (NO STAIN) 12/10/2024 3:30 PM EDT Office Visit [facility] [place] [address] [place] [phone] Kae Toro APRN Hospital discharge follow-up (Primary Dx); Viral illness; Nausea; 18 weeks gestation of 12/09/2024 Telephone [facility] [address] [place], [place] [phone] Kae Toro APRN Appointment Needed (ED Follow Up ([facility]) / Ongoing Migraine) 10/20/2024 9:30 AM EDT Office Visit [facility] [place] [address] [place] [phone] Kae Toro APRN Annual physical exam (Primary [...] (199 lb) 12/10/2024 3:35 PM EDT Height 169.2 cm (5' 6.6 ) 10/20/2024 9:23 AM EDT Body Mass Index 31.54 10/20/2024 9:23 AM EDT Plan of Treatment Health Maintenance Due Date Last Done Comments Chlamydia Screening 2020 Meningococcal B Vaccine (2 of 2 - Bexsero SCDM 2-dose series) 01/26/2021 07/26/2020 COVID-19 Vaccine ( season) 2024 Influenza Vaccine (#1) 2025 9, [...] maintain an ideal body weight General No [place], Kae, MAINTENANCE MANAGER Procedures Procedure Name Priority Date/Time Associated Diagnosis Comments URINE CULTURE (NO STAIN) Routine 12/10/2024 3:59 PM EDT Nausea SEP URINALYSIS POC Routine 12/10/2024 3: 57 PM EDT Nausea from Last 3 Months Results * URINE CULTURE (NO STAIN) (12/10/2024 3:59 PM EDT) Pathologist [facility] Culture Multiple bacterial species isolated from urine consistent with urogenital commensal organisms. 12/12/2024 4:12 AM EDT [facility] Urine STRUCTURE OF URINARY TRACT PROPER / Unknown 12/10/2024 3:59 PM EDT 12/10/2024 3:59 PM EDT us Kae Toro APRN MICROBIOLOGY - GENERAL HELEN DIAS Final Result [facility] [address] [place] [address] * (ABNORMAL) SEP URINALYSIS POC (12/10/2024 3:57 PM EDT) Pathologist [facility] UA Color POC Yellow Color 12/10/2024 3:59 [...] EDT 12/10/2024 3:59 PM EDT Kae Toro MAINTENANCE MANAGER POINT OF CARE TEST ORDERABL ES Final Result [facility] [place] [address] [place], [place] [address] from Last 3 Months Insurance [employer] [facility] [address] [facility] [place] Care Teams Occupancy Specialist Relationship Specialty Start Date End Date Kae Tor[place] [place] [address] PCP - General Nurse Practitioner-Family 10/20/24
--- OUTSIDE RECORDS SUMMARY | 2024-12-18 14:21 | XMS_ITS | Clinical Summary ---
Author Organization [facility] Address [address] [place] [address] Care Team Providers Care Journeyman Electrician Name Role Phone Rosie Fraga Primary Care [...] UKY-HIV Screening 2004 UKY-Hepatitis C Screening 2004 [facility]Y-Infant/Child/Adol SDOH Screenings 2004 UKY- SDOH Screenings 2022 UKY-Adult SDOH Screenings 2022 [id number] Vaccine ( season) 2024 UKY-Influenza Vaccine (#1) [...] age to complete this topic Insurance AETNA [facility] MEDICAID Care Teams Journeyman Electrician Relationship Specialty Start Date End Date [place] [address] PCP - General Civil Lawyer 03/06/23
--- OUTSIDE RECORDS SUMMARY | 2024-12-18 14:22 | XMS_ITS | Encounter Summary ---
Author Organization [place] [address] Care Team Providers Care Ladle Pourer Name Role Phone Kae Toro APRN Primary Care Provider [phone] Reason for Visit * Reason Onset Date Comments Appointment Needed 12/09/2024 ED Follow Up ([facility]) / Ongoing Migraine Encounter Details Date Type Department Care Team (Late st Contact Info) Description 12/09/2024 Telephone [facility] [address] [place] [phone] Kae Toro APRN [address] [place] [address] Appointment Needed (ED Follow Up ([facility]) / Ongoing Migraine) Social History Tobacco Use Types Packs/Day Years [...] Vines CCMA * Does this person have difficulty dressing or bathing? Answer Date of Assessment Author No 10/20/2024 9:23 AM EDT Liset Vines CCMA * Because of a physical, mental or emotional condition, does this person have difficulty doing errands alone such as visiting a doctor's office or shopping? Answer Date of Assessment Author No 10/20/2024 9:23 AM EDT Liset Vines CCMA documented as of this encounter Mental Status * Because of a physical, mental or emotional condition, does this person have serious difficulty concentrating, remembering or making decisions? Answer Entry Date Author No 10/20/2024 9:23 AM EDT Liset Vines CCMA documented in this encounter Miscellaneous Notes * Telephone Encounter - Kassidy Maharaj MA - 12/09/2024 3:36 PM EDT Appointment scheduled * Telephone Encounter - Kae Toro APRN - 12/09/2024 2:53 PM EDT Unable to work in today. Ok to work in tomorrow or Saturday. Thanks. * Telephone Encounter - Belgica Rosas MA - 12/09/2024 10:08 AM EDT Select the most appropriate reason for this telephone message: Appointment Needed Appointment Requested By: Patient Provider Preference: Any Available Type of Appt Needed: OV-ED Follow Up Detailed Reason for Appt: ED Follow Up ([facility]) / Ongoing Migraine Requested Timeframe: Today around 3:30 if available due to transportation Reason Scheduling Assistance is Needed: -no appts available with provider preference in time frame needed Return Method of Communication: Phone Call Additional Information: Pt c/o ongoing migraine while 16 weeks along with nausea, and emesis. Pt was seen at hospital yesterday related to sx and denies migraine improvement. Please advise if pt can be worked in after 3:30 pm due to transportation concerns-thank you. documented in this encounter Plan of Treatment Not on file documented as of this encounter Goals Goal Patient Goal Type Associated Problems Recent Progress Patient-Stated? Author Maintain a healthy diet, exercise regularly and maintain an ideal body weight General No Kae Toro APRN documented as of this encounter Visit Diagnoses Not on filedocumented in this encounter Care Teams Ladle Pourer Relationship Specialty Start Date End Date Kae Toro APRN [address] [place], [place] [address] PCP - General Nurse Practitioner-Family 10/20/24 documented as of this encounter
--- NOTE | 2024-12-18 14:30 | US_ITS ---
PROCEDURE: US OB >= 14 WEEKS FETUS CLINICAL INDICATION: 20 week anatomy Scan COMPARISON: US US OB <= 14 WEEKS FETUS from 10/07/2024 FINDINGS: Transabdominal sonographic images of the pelvis were obtained. From her established due date she is 20 weeks 0 days. Single viable intrauterine gestation. Cephalic position. Placenta: Anteriorplacenta grade 1. There is an average amount of fluid. The cervix appears satisfactory. Closed and measuring 2.74 cm in length. Complete survey performed and was unremarkable on the submitted images as in PACS. No discrete anomalies identified on survey imaging by technologist. Active fetus. Three-vessel cord and it appears to be inferiorly marginally inserted. 4- chamber heart not completely seen today. Three-vessel view is seen. Survey of brain & ventricles Unremarkable. Cerebellum, thalamus, choroid plexus, cisterna magna appear normal. Face and neck survey unremarkable. Profile, nasion, lips and nose not visualized today due to position. Diaphragm and chest views unremarkable. Abdomen: Both kidneys noted and unremarkable. Stomach and bladder noted and satisfactory. Spine: Survey of the spine satisfactory with no anomalies identified nor imaged. Cervical, thoracic, lower spine appear normal. Both arms and legs noted. Amniotic Fluid: Adequate. MVP 4.85 cm Measurements: Average ultrasound age 20weeks 1day. Estimated due date by ultrasound age 1205/06/2025. Estimated weight 329g BPD = 20weeks 1day HC = 20weeks 2days AC = 19weeks 6days FL = 20weeks 2days Growth Percentile= 48 Heart Rate = 140bpm Cerebellum = 19weeks 6days Humerus = 20weeks 0 days HC/AC is 1.22 FL/BPD is 0.7 FL/AC is 0.23 IMPRESSION: 1. Viable fetus in the cephalic presentation with an anterior placenta grade 1. 2. The umbilical cord appears to be marginally inserted inferiorly. 3. The fluid is within normal limits with an MVP 4.85 cm. 4. Limited anatomical scan appears normal. 5. heart anatomy, face and profile views were not seen today due to position. Suggest repeat scan in 2 weeks. Dictated by: Hussain Rodas MD 12/19/2024 09:28 Hussain Rodas MD in OV 12/19/2024 09:28
== END 2024-12-18 23:59 | disposition home or self-care (01) ==
LOC: RAD 14:21
PROVIDERS: PCP Pediatrics; Visit Provider Obstetrics & Gynecology
DX: Z36.3 Encounter for antenatal screening for malformations (principal); Z34.92 Encounter for supervision of normal pregnancy, unspecified, second trimester; Z3A.20 20 weeks gestation of pregnancy
CPT/HCPCS: 76805

== ENCOUNTER 2024-12-31 14:56 | Outpatient (CLI) | payer OTHER, SELFPAY ==
--- OUTSIDE RECORDS SUMMARY | 2024-12-10 15:30 | XMS_ITS | Encounter Summary ---
Author Organization [place] [address] Care Team Providers Care Painting Trades Worker Name Role Phone Kae Toro APRN Primary Care Provider [phone] Reason for Visit * Reason Comments ED Follow-up Feeling better now Migraine Encounter Details Date Type Department Care Team (Late st Contact Info) Description 12/10/2024 3:30 PM EDT Office Visit [facility] [place] [address] [place] [address] Kae Toro APRN [address] [place] [address] Hospital discharge follow-up (Primary Dx); Viral illness; Nausea; 18 weeks gestation of Social History Tobacco Use Types Packs/Day Years Used Date Smoking Tobacco: Never Smokeless Tobacco: Never Alcohol Use Standard Drinks/Week Comments Never 0 [...] Sign Reading Time Taken Comments Blood Pressure 127/82 12/10/2024 3:35 PM EDT Pulse 89 12/10/2024 3:35 PM EDT Temperature 36.6 C (97.8 F) 12/10/2024 3:35 PM EDT Respiratory Rate 18 12/10/2024 3:35 PM EDT Oxygen Saturation 99% 12/10/2024 3:35 PM EDT Inhaled Oxygen Concentration - - Weight 90.3 kg (199 lb) 12/10/2024 3:35 PM EDT Height - - Body Mass Index 31.54 10/20/2024 9:23 AM EDT documented in this encounter Functional Status * Is the person deaf or does he/she have serious difficulty hearing? Answer Date of Assessment Author No 10/20/2024 9:23 AM EDT Liset Vines CCMA * Is the person blind or does he/she have serious difficulty seeing even when wearing glasses? Answer Date of Assessment Author No 10/20/2024 9:23 AM EDT Liset Vines CCMA * Does this person have serious difficulty walking or climbing stairs? Answer Date of Assessment Author No 10/20/2024 9:23 AM EDLiset Carnes CCMA * Does this person have difficulty dressing or bathing? Answer Date of Assessment Author No 10/20/2024 9:23 AM EDT Liset Vines CCMA * Because of a physical, mental or emotional condition, does this person have difficulty doing errands alone such as visiting a doctor's office or shopping? Answer Date of Assessment Author No 10/20/2024 9:23 AM EDLiset Carnes CCMA documented as of this encounter Mental Status * Because of a physical, mental or emotional condition, does this person have serious difficulty concentrating, remembering or making decisions? Answer Entry Date Author No 10/20/2024 9:23 AM Liset Quijano CCMA documented in this encounter Progress Notes * Kae Toro APRN - 12/10/2024 3:30 PM EDT Assessment & Plan Hospital discharge follow-up Compliance: - compliant with discharge medications and instructions. Assistance: - managing all ADLs independently Follow Up Appointments: - none Medical Complexity: - ([place] [id number]) moderate medical complexity, communication occurred within 2 business days of discharge, and todays visit is within 14 days of discharge Viral illness Symptoms improving since onset UA with dehydration She is able to keep fluids down Increase fluids, consider electrolyte drinks [place] diet and advance as tolerated She sees OB next week, should recheck UA while there. Nausea Has zofran as needed Clear liquids and advance as tolerated Orders: SEP URINALYSIS POC URINE CULTURE (NO STAIN); Future 18 weeks gestation of FHT 150 on exam Established with OB Has anatomy scan coming up No specific concerns today Recent GI virus that is getting better. Progress Note: Vitals: 12/10/24 1535 BP: 127/82 Pulse: 89 Resp: 18 Temp: 97.8 ??F (36.6 ??C) TempSrc: Forehead SpO2: 99% Weight: 199 lb (90.3 kg) Body mass index is 31.54 kg/m??. SUBJECTIVE: Chief Complaint Patient presents with ED Follow-up Feeling better now Migraine HPI: Pt developed headache, nausea, vomiting on diarrhea on Saturday. Went to the ER Saturday for ongoingsx. Had labs and ua that were clear. Was given IVF, magnesium and tylenol and discharged home. Overall feeling much better. No vomiting today. Still nauseated. No diarrhea. Denies abd pain. 18w6d . No complications. Has scan coming up. Not sure if the ER performed a UA. Denies UTI sx. Review of Systems Constitutional: Positive for fatigue. Negative for fever. Respiratory: Negative for cough, shortness of breath and wheezing. Cardiovascular: Negative for chest pain, palpitations and leg swelling. Gastrointestinal: Positive for nausea. Negative for abdominal pain. Neurological: Positive for headaches. Hematological: Negative for adenopathy. OBJECTIVE: Results for orders placed or performed in visit on 12/10/24 SEP URINALYSIS POC Result Value Ref Range UA Color POC Yellow Color UA Appear POC Clear Clear UA Gluc POC Negative Negative mg/dL UA Bili POC Moderate (A) Negative UA Ketones POC >=160 (A) Negative mg/dL UA SG POC 1.025 1.001 - 1.035 no units UA Blood POC Negative Negative UA pH POC 6.5 5.0 - 8.0 pH UA Protein POC 100 (A) Negative mg/dL UA Urobilinogen POC 2.0 (A) 0.2, 1.0 UA Nitrite POC Negative Negative UA Leuk Est POC Trace (A) Negative Physical Exam Constitutional: Appearance: Normal appearance. HENT: Head: Normocephalic and atraumatic. Cardiovascular: Rate and Rhythm: Normal rate and regular rhythm. Heart sounds: Normal heart sounds. Pulmonary: Effort: Pulmonary effort is normal. Breath sounds: Normal breath sounds. Abdominal: Palpations: Abdomen is soft. Tenderness: There is no abdominal tenderness. Comments: FHT 150 Neurological: Mental Status: She is alert and oriented to person, place, and time. Psychiatric: Mood and Affect: Mood normal. Thought Content: Thought content normal. documented in this encounter Plan of Treatment Not on file documented as of this encounter Goals Goal Patient Goal Type Associated Problems Recent Progress Patient-Stated? Author Maintain a healthy diet, exercise regularly and maintain an ideal body weight General No Kae Toro APRN documented as of this encounter Procedures Procedure Name Priority Date/Time Associated Diagnosis Comments URINE CULTURE (NO STAIN) Routine 12/10/2024 3:59 PM EDT Nausea SEP URINALYSIS POC Routine 12/10/2024 3: 57 PM EDT Nausea documented in this encounter Results * URINE CULTURE (NO STAIN) (12/10/2024 3:59 PM EDT) Culture Multiple bacterial species isolated from urine consistent with urogenital commensal organisms. 12/12/2024 4:12 AM EDT [employer] Urine STRUCTURE OF URINARY TRACT PROPER / Unknown 12/10/2024 3:59 PM EDT 12/10/2024 3:59 PM EDT Kae Toro APRN MICROBIOLOGY - GENERAL HELEN DIAS Final Result [employer] [address] [place] [id number] * (ABNORMAL) SEP URINALYSIS POC (12/10/2024 3:57 PM EDT) UA Color POC Yellow Color 12/10/2024 3:59 PM EDT [facility] [place] UA Appear POC Clear Clear 12/10/2024 3:59 PM EDT [facility] [place] UA Gluc POC Negative Negative mg/dL 12/10/2024 3:59 PM EDT [facility] [place] UA Bili POC Moderate(A) Negative 12/10/2024 3:59 PM EDT [facility] [place] UA Ketones POC >=160(A) Negative mg/dL 12/10/2024 3:59 PM EDT [facility] [place] UA SG POC 1.025 1.001 - 1.035 no units 12/10/2024 3:59 PM EDT [facility] [place] UA Blood POC Negative Negative 12/10/2024 3:59 PM EDT [facility] [place] UA pH POC 6.5 5.0 - 8.0 pH 12/10/2024 3:59 PM EDT [facility] [place] UA Protein POC 100(A) Negative mg/dL 12/10/2024 3:59 PM EDT [facility] [place] UA Urobilinogen POC 2.0(A) 0.2, 1.0 12/10/2024 3:59 PM EDT [facility] [place] UA Nitrite POC Negative Negative 12/10/2024 3:59 PM EDT [facility] [place] UA Leuk Est POC Trace(A) Negative 3:59 PM EDT [facility] [place] Urine STRUCTURE OF URINARY TRACT PROPER / Unknown 12/10/2024 3:57 PM EDT 12/10/2024 3:59 PM EDT Kae Toro APRN POINT OF CARE TEST ORDERABL ES Final Result [facility] [place] [address] [place] [id number] documented in this encounter Visit Diagnoses Diagnosis Hospital discharge follow-up- Primary Other follow-up examination Viral illness Unspecified viral infection, in conditions classified elsewhere and of unspecified site Nausea Nausea alone 18 weeks gestation of state, incidental documented in this encounter Discontinued Medications Medication Sig Discontinue Reason Start Date End Da te progesterone (PROMETRIUM) 200 mg Oral Capsule INSERT 1 CAPSULE VAGINALLY AT BEDTIME Patient Reported not taking medication 09/09/2024 12/10/2024 documented as of this encounter Care Teams Painting Trades Worker Relationship Specialty Start Date End Date Kae Toro APRN [address] [place] [id number] PCP - General Nurse Practitioner-Family 10/20/24 documented as of this encounter
--- OUTSIDE RECORDS SUMMARY | 2024-12-31 14:58 | XMS_ITS | Encounter Summary ---
Author Organization [place] [address] Care Team Providers Care Hoop Rolls Operator Name Role Phone Kae Toro MENTALLY IMPAIRED TEACHER Primary Care Provider [phone] Encounter Details Date Type Department Care Team (Late st Contact Info) Description 12/12/2024 Results Follow-Up [facility] [address] [place] [phone] Kae Toro APRN [address] [place] [address] URINE CULTURE (NO STAIN) Social History [...] on filedocumented in this encounter Care Teams Hoop Rolls Operator Relationship Specialty Start Date End Date Kae Toro APRN [address] [place], [place] [address] PCP - General Nurse Practitioner-Family 10/20/24 documented as of this encounter
--- OUTSIDE RECORDS SUMMARY | 2024-12-31 14:58 | XMS_ITS | Encounter Summary ---
Author Organization [place] [address] Care Team Providers Care Seed District Sales Manager Name Role Phone Kae Toro APRN Primary Care Provider [phone] Reason for Visit * Reason Onset Date Comments Appointment Needed 12/09/2024 ED Follow Up ([facility]) / Ongoing Migraine Encounter Details Date Type Department Care Team (Late st Contact Info) Description 12/09/2024 Telephone [facility] [address] [place] [phone] Kae Toro APRN [address] [place] [address] Appointment Needed (ED Follow Up ([facility]) / Ongoing Migraine) Social History Tobacco Use [...] Detailed Reason for Appt: ED Follow Up ([facility]) / Ongoing Migraine Requested Timeframe: Today around [...] on filedocumented in this encounter Care Teams Seed District Sales Manager Relationship Specialty Start Date End Date Kae Toro APRN [address] [place], [place] [address] PCP - General Nurse Practitioner-Family 10/20/24 documented as of this encounter
--- OUTSIDE RECORDS SUMMARY | 2024-12-31 14:58 | XMS_ITS | Clinical Summary ---
Author Organization [facility] Address [address] [place] [address] Phone Care Team Providers Care Sign Designer Name Role Phone Kae Toro APRN Primary Care Provider [phone] Allergies Active Allergy Reactions Criticality Noted Date [...] Team Description 12/12/2024 Results Follow-Up [facility] [address] [place] [phone] Kae Toro APRN URINE CULTURE (NO STAIN) 12/10/2024 3:30 PM EDT Office Visit [facility] [place] [address] [place] [phone] Kae Toro APRN Hospital discharge follow-up (Primary Dx); Viral illness; Nausea; 18 weeks gestation of 12/09/2024 Telephone [facility] [address] [place], [place] [phone] Kae Toro APRN Appointment Needed (ED Follow Up ([facility]) / Ongoing Migraine) 10/20/2024 9:30 AM EDT Office Visit [facility] [place] [address] [place] [phone] Kae Toro APRN Annual physical exam (Primary [...] maintain an ideal body weight General No [place], Kae, HADOOP ANALYST Procedures Procedure Name Priority Date/Time Associated Diagnosis Comments URINE CULTURE (NO STAIN) Routine 12/10/2024 3:59 PM EDT Nausea SEP URINALYSIS POC Routine 12/10/2024 3: 57 PM EDT Nausea from Last 3 Months Results * URINE CULTURE (NO STAIN) (12/10/2024 3:59 PM EDT) Pathologist [facility] Culture Multiple bacterial species isolated from urine consistent with urogenital commensal organisms. 12/12/2024 4:12 AM EDT [facility] Urine STRUCTURE OF URINARY TRACT PROPER / Unknown 12/10/2024 3:59 PM EDT 12/10/2024 3:59 PM EDT us Kae Toro APRN MICROBIOLOGY - GENERAL HELEN DIAS Final Result [facility] [address] [place] [address] * (ABNORMAL) SEP URINALYSIS POC (12/10/2024 3:57 PM EDT) Pathologist [facility] UA Color POC Yellow Color 12/10/2024 3:59 [...] EDT 12/10/2024 3:59 PM EDT Kae Toro HADOOP ANALYST POINT OF CARE TEST ORDERABL ES Final Result [facility] [place] [address] [place], [place] [address] from Last 3 Months Insurance [employer] [address] [facility] [place] Care Teams Sign Designer Relationship Specialty Start Date End Date Kae Toro [place] [address] [place] [address] PCP - General Nurse Practitioner-Family 10/20/24
--- OUTSIDE RECORDS SUMMARY | 2024-12-31 14:58 | XMS_ITS | Clinical Summary ---
Author Organization [facility] Address [address] [place] [address] Care Team Providers Care Chaperon Name Role Phone Rosie Fraga Primary Care [...] SDOH Screenings 2022 UKY-Adult SDOH Screenings 2022 [id number] Vaccine ( season) 2024 UKY-Influenza Vaccine (#1) [...] age to complete this topic Insurance AETNA [facility] MEDICAID Care Teams Chaperon Relationship Specialty Start Date End Date [place] [address] PCP - General Architectural Engineering Teacher 03/06/23
--- NOTE | 2024-12-31 15:15 | US_ITS ---
PROCEDURE: US OB FOLLOW UP CLINICAL INDICATION: repeat views COMPARISON: US US OB <= 14 WEEKS FETUS from 10/07/2024 US US OB >= 14 WEEKS FETUS from 12/18/2024 FINDINGS: Transabdominal sonographic images of the pelvis were obtained. The following parameters are obtained: From her established due date she is 21weeks 6days Viable fetus in the breech presentation with an anterior placenta grade 1. The cervix measures 2.60 cm heart rate: 146bpm bpm. Amniotic fluid: Subjectively appears normal. No obvious anomalies evident. profile seen, stomach, bladder, kidneys, three-vessel cord, four chamber heart appear normal. heart: RVOT, LVOT, three-vessel view and four-chamber view all appear normal. face: Profile, nose and lips appear normal. IMPRESSION: 1. Viable fetus in the breech presentation with an anterior placenta grade 1. 2. The fluid subjectively appears to be within normal limits. 3. The cardiac views and facial views appear normal today. 4. The rest of the limited anatomical scan appears normal. Dictated by: Hussain Rodas MD 12/31/2024 17:16 Hussain Rodas MD in OV 12/31/2024 17:16
== END 2024-12-31 23:59 | disposition home or self-care (01) ==
LOC: RAD 14:56
PROVIDERS: PCP Pediatrics; Visit Provider Obstetrics & Gynecology
DX: O32.1XX0 Maternal care for breech presentation, not applicable or unspecified (principal); Z3A.21 21 weeks gestation of pregnancy
CPT/HCPCS: 76816

== ENCOUNTER 2025-01-21 15:53 | Outpatient (CLI) | payer OTHER, SELFPAY ==
--- OUTSIDE RECORDS SUMMARY | 2024-12-10 15:30 | XMS_ITS | Encounter Summary ---
Author Organization [place] [address] Care Team Providers Care Manager Media Relations Name Role Phone Kae Toro APRN Primary Care Provider [phone] Reason for Visit * Reason Comments ED Follow-up Feeling better now Migraine Encounter Details Date Type Department Care Team (Late st Contact Info) Description 12/10/2024 3:30 PM EDT Office Visit [facility] [place] [address] [place] [address] Kae Toro APRN [address] [place] [address] Hospital discharge follow-up (Primary Dx); Viral illness; [...] - none Medical Complexity: - ([place] [id number]) moderate medical complexity, communication occurred within 2 business days of discharge, and todays visit is within 14 days of discharge Viral illness Symptoms improving since onset UA with dehydration She is able to keep fluids down Increase fluids, consider electrolyte drinks [place] diet and advance as tolerated She sees [...] urogenital commensal organisms. 12/12/2024 4:12 AM EDT [employer] Urine STRUCTURE OF URINARY TRACT PROPER / Unknown 12/10/2024 3:59 PM EDT 12/10/2024 3:59 PM EDT Kae Toro APRN MICROBIOLOGY - GENERAL HELEN DIAS Final Result [employer] [address] [place] [id number] * (ABNORMAL) SEP URINALYSIS POC (12/10/2024 3:57 [...] ORDERABL ES Final Result [facility] [place] [address] [place] [id number] documented in this encounter Visit Diagnoses Diagnosis [...] documented as of this encounter Care Teams Manager Media Relations Relationship Specialty Start Date End Date Kae Toro APRN [address] [place] [address] PCP - General Nurse Practitioner-Family 10/20/24 documented as of this encounter
--- OUTSIDE RECORDS SUMMARY | 2025-01-22 10:34 | XMS_ITS | Clinical Summary ---
Author Organization [facility] Address [address] [place] [address] Care Team Providers Care Straight Line Edger Name Role Phone Rosie Fraga Primary Care [...] SDOH Screenings 2022 UKY-Adult SDOH Screenings 2022 [id number] Vaccine ( season) 2024 UKY-Influenza Vaccine (#1) [...] age to complete this topic Insurance AETNA [facility] MEDICAID Care Teams Straight Line Edger Relationship Specialty Start Date End Date [place] [address] PCP - General Roof Fixer 03/06/23
--- OUTSIDE RECORDS SUMMARY | 2025-01-22 10:34 | XMS_ITS | Encounter Summary ---
Author Organization [place] [address] Care Team Providers Care Gun Tester Name Role Phone Kae Toro EMR IMPLEMENTATION SPECIALIST Primary Care Provider [phone] Encounter Details Date Type Department Care Team (Late st Contact Info) Description 12/12/2024 Results Follow-Up [facility] [address] [place] [phone] Kae Toro APRN [address] [place] [address] URINE CULTURE (NO STAIN) Social History [...] on filedocumented in this encounter Care Teams Gun Tester Relationship Specialty Start Date End Date Kae Toro APRN [address] [place], [place] [address] PCP - General Nurse Practitioner-Family 10/20/24 documented as of this encounter
--- OUTSIDE RECORDS SUMMARY | 2025-01-22 10:34 | XMS_ITS | Clinical Summary ---
Author Organization [facility] Address [address] [place] [address] Phone Care Team Providers Care Air Cargo Ground Crew Supervisor Name Role Phone Kae Toro APRN Primary Care Provider [phone] Allergies Active Allergy Reactions Criticality Noted Date Comments Penicillins Other (See Comments) 10/20/2024 migraine Medications 28 mg iron- 800 mcg Oral Tablet Take 1 Tablet by mouth daily. 09/29/2024 Active promethazine (PHENERGAN) 12.5 mg Oral Tablet TAKE 1 TABLET BY MOUTH EVERY 4 TO 6 HOURS NEEDED FOR NAUSEA AND VOMITING 09/15/2024 Active busPIRone (BUSPAR) 10 mg Oral TabletIndicatio ns:Generalized anxiety disorder Take 1 Tablet by mouth daily as needed. 30 Tablet 2 10/20/2024 Active Active Problems Estimated Date of Delivery Comme nts Yes 05/07/2025 No known active problems Encounters Date Type Department Care Team Description 12/12/2024 Results Follow-Up [facility] [place] [address] [address] [place] [phone] Kae Toro APRN URINE CULTURE (NO STAIN) 12/10/2024 3:30 PM EDT Office Visit [facility] [place] [phone] Kae Toro APRN Hospital discharge follow-up (Primary Dx); Viral illness; Nausea; 18 weeks gestation of 12/09/2024 Telephone [facility] [place] [address] [place] [phone] Kae Toro APRN Appointment Needed (ED Follow Up ([facility]) / Ongoing Migraine) from Last 3 Months Immunizations Immunization Administration [...] 01/26/2021 07/26/2020 COVID-19 Vaccine (1 - season) 2025 Influenza Vaccine (#1) 2025 9, 02/25/2017, 04/19/2015, [...] maintain an ideal body weight General No [place], Kae, ELECTRONIC SCALE SUBASSEMBLER Procedures Procedure Name Priority Date/Time Associated Diagnosis Comments URINE CULTURE (NO STAIN) Routine 12/10/2024 3:59 PM EDT Nausea SEP URINALYSIS POC Routine 12/10/2024 3: 57 PM EDT Nausea from Last 3 Months Results * URINE CULTURE (NO STAIN) (12/10/2024 3:59 PM EDT) Pathologist [facility] Culture Multiple bacterial species isolated from urine consistent with urogenital commensal organisms. 12/12/2024 4:12 AM EDT [facility] Urine STRUCTURE OF URINARY TRACT PROPER / Unknown 12/10/2024 3:59 PM EDT 12/10/2024 3:59 PM EDT Kae Toro APRN MICROBIOLOGY - GENERAL HELEN DIAS Final Result [facility] [address] [facility] , [place] [address] * (ABNORMAL) SEP URINALYSIS POC (12/10/2024 3:57 [...] PM EDT 12/10/2024 3:59 PM EDT Kae oTro ELECTRONIC SCALE SUBASSEMBLER POINT OF CARE TEST ORDERABL ES Final Result [facility] [place] [address] [place], [place] [id number] from Last 3 Months Insurance [facility] [employer] [facility] [address] [facility] [place] [address] Care Teams Air Cargo Ground Crew Supervisor Relationship Specialty Start Date End Date Kae Toro APRN [address] [place] [address] PCP - General Nurse Practitioner-Family 10/20/24
--- OUTSIDE RECORDS SUMMARY | 2025-01-22 10:35 | XMS_ITS | Encounter Summary ---
Author Organization [place] [address] Care Team Providers Care Construction Rep Name Role Phone Kae Toro APRN Primary Care Provider [phone] Reason for Visit * Reason Onset Date Comments Appointment Needed 12/09/2024 ED Follow Up ([facility]) / Ongoing Migraine Encounter Details Date Type Department Care Team (Late st Contact Info) Description 12/09/2024 Telephone [facility] [address] [place] [phone] Kae Toro APRN [address] [place] [address] Appointment Needed (ED Follow Up ([facility]) / Ongoing Migraine) Social History Tobacco Use [...] Detailed Reason for Appt: ED Follow Up ([facility]) / Ongoing Migraine Requested Timeframe: Today around [...] on filedocumented in this encounter Care Teams Construction Rep Relationship Specialty Start Date End Date Kae Toro APRN [address] [place], [place] [address] PCP - General Nurse Practitioner-Family 10/20/24 documented as of this encounter
== END 2025-01-21 23:59 | disposition home or self-care (01) ==
LOC: LAB.DROPOF 01-22 10:31
PROVIDERS: PCP Obstetrics & Gynecology; Visit Provider Obstetrics & Gynecology
DX: O99.210 Obesity complicating pregnancy, unspecified trimester (principal)
CPT/HCPCS: 87086

== ENCOUNTER 2025-02-18 16:00 | Outpatient (CLI) | payer OTHER, SELFPAY ==
--- OUTSIDE RECORDS SUMMARY | 2025-02-19 02:00 | XMS_ITS | Clinical Summary ---
Author Organization [facility] Address [address] [place] [address] Care Team Providers Care Dry Cleaner Hand Name Role Phone Rosie Fraga Primary Care [...] SDOH Screenings 2022 UKY-Adult SDOH Screenings 2022 [id number] Vaccine ( season) 2025 UKY-Influenza Vaccine (#1) 01/11/202505/30, 02/25/2017, 04/19/2015, Additional [...] age to complete this topic Insurance AETNA [facility] MEDICAID Care Teams Dry Cleaner Hand Relationship Specialty Start Date End Date Rosie [place] [address] PCP - General Ingot Weigher 03/06/23
== END 2025-02-18 23:59 | disposition home or self-care (01) ==
LOC: LAB.DROPOF 02-19 01:58
PROVIDERS: PCP Obstetrics & Gynecology; Visit Provider Obstetrics & Gynecology
DX: O99.210 Obesity complicating pregnancy, unspecified trimester (principal); E66.9 Obesity, unspecified; R39.9 Unspecified symptoms and signs involving the genitourinary system; Z3A.00 Weeks of gestation of pregnancy not specified
CPT/HCPCS: 87086

== ENCOUNTER 2025-02-25 10:11 | Outpatient (CLI) | payer OTHER, SELFPAY ==
--- OUTSIDE RECORDS SUMMARY | 2025-02-25 10:26 | XMS_ITS | Encounter Summary ---
Author Organization [place] [address] Care Team Providers Care Navy Diver Name Role Phone Kae Toro SIGNALMAN Primary Care Provider [phone] Encounter Details Date Type Department Care Team (Late st Contact Info) Description 12/12/2024 Results Follow-Up [facility] [address] [place] [phone] Kae Toro APRN [address] [place] [address] URINE CULTURE (NO STAIN) Social History [...] on filedocumented in this encounter Care Teams Navy Diver Relationship Specialty Start Date End Date Kae Toro APR[address] [place], [place] [address] PCP - General Nurse Practitioner-Family 10/20/24 documented as of this encounter
--- OUTSIDE RECORDS SUMMARY | 2025-02-25 10:26 | XMS_ITS | Clinical Summary ---
Author Organization [facility] Address [address] [place] [address] Care Team Providers Care Labor Arbitrator Hearing Office Name Role Phone Rosie Fraga Primary Care [...] SDOH Screenings 2022 UKY-Adult SDOH Screenings 2022 [id number] Vaccine ( season) 2025 UKY-Influenza Vaccine (#1) [...] age to complete this topic Insurance AETNA [facility] MEDICAID Care Teams Labor Arbitrator Hearing Office Relationship Specialty Start Date End Date Rosie [place] [address] PCP - General Instrument Maker And Repairer 03/06/23
--- OUTSIDE RECORDS SUMMARY | 2025-02-25 10:26 | XMS_ITS | Encounter Summary ---
Author Organization [place] [address] Care Team Providers Care Limo Driver Name Role Phone Kae Toro APRN Primary Care Provider [phone] Reason for Visit * Reason Onset Date Comments Appointment Needed 12/09/2024 ED Follow Up ([facility]) / Ongoing Migraine Encounter Details Date Type Department Care Team (Late st Contact Info) Description 12/09/2024 Telephone [facility] [address] [place] [phone] Kae Toro APRN [address] [place] [address] Appointment Needed (ED Follow Up ([facility]) / Ongoing Migraine) Social History [...] Detailed Reason for Appt: ED Follow Up ([facility]) / Ongoing Migraine Requested Timeframe: [...] on filedocumented in this encounter Care Teams Limo Driver Relationship Specialty Start Date End Date Kae Toro APRN [address] [place], [place] [address] PCP - General Nurse Practitioner-Family 10/20/24 documented as of this encounter
--- OUTSIDE RECORDS SUMMARY | 2025-02-25 10:26 | XMS_ITS | Clinical Summary ---
Author Organization [facility] Address [address] [facility] [address] [place] [address] Phone Care Team Providers Care Civil Drafter Name Role Phone Kae Toro APRN Primary Care Provider [phone] Allergies Active Allergy Reactions Criticality Noted Date [...] Department Care Team Description 12/12/2024 Results Follow-Up [facility] [place] [address] [address] [place] [phone] Kae Toro APRN URINE CULTURE (NO STAIN) 12/10/2024 3:30 PM EDT Office Visit [facility] [address] [place] [phone] Kae Toro APRN Hospital discharge follow-up (Primary Dx); Viral illness; Nausea; 18 weeks gestation of 12/09/2024 Telephone [facility] [place] [address] [place] [phone] Kae Toro APRN Appointment Needed (ED Follow Up ([facility]) / Ongoing Migraine) from Last 3 Months [...] cm (5' 6.6 ) 10/20/2024 9:23 AM ED T Body Mass Index 31.54 10/20/2024 9:23 AM [...] ideal body weight General No Cortez, Kae, RECEIVER DISPATCHER Procedures Procedure Name Priority Date/Time Associated Diagnosis Comments URINE CULTURE (NO STAIN) Routine 12/10/2024 3:59 PM EDT Nausea [facility] URINALYSIS POC Routine 12/10/2024 3: 57 PM EDT Nausea from Last 3 Months Results * URINE CULTURE (NO STAIN) (12/10/2024 3:59 PM EDT) Pathologist [facility] Culture Multiple bacterial species isolated from urine consistent with urogenital commensal organisms. 12/12/2024 4:12 AM EDT [facility] Urine STRUCTURE OF URINARY TRACT PROPER / Unknown 12/10/2024 3:59 PM EDT 12/10/2024 3:59 PM EDT Kae Toro APRN MICROBIOLOGY - GENERAL HELEN DIAS Final Result [facility] [address] [facility] , [place] [address] * (ABNORMAL) [facility] URINALYSIS POC (12/10/2024 3:57 [...] EDT 12/10/2024 3:59 PM EDT Kae Toro RECEIVER DISPATCHER POINT OF CARE TEST ORDERABL ES Final Result [facility] [place] [address] [place], [place] [phone] from Last 3 Months Insurance [facility] [employer] [facility] [address] [facility] [place] [address] Care Teams Civil Drafter Relationship Specialty Start Date End Date Kae Toro APRN [address] [place] [address] PCP - General Nurse Practitioner-Family 10/20/24
== END 2025-02-25 23:59 | disposition home or self-care (01) ==
LOC: LAB 10:30
PROVIDERS: PCP Nurse Practitioner; Visit Provider Nurse Practitioner Obstetrics & Gynecology
DX: Z34.90 Encounter for supervision of normal pregnancy, unspecified, unspecified trimester (principal); Z3A.00 Weeks of gestation of pregnancy not specified

== ENCOUNTER 2025-03-10 17:03 | Emergency (ER) | payer OTHER, SELFPAY ==
--- OUTSIDE RECORDS SUMMARY | 2025-02-25 15:15 | XMS_ITS | Encounter Summary ---
Author Organization [place] [address] Care Team Providers Care Certified Alcohol Counselor Name Role Phone Kae Toro MARRIAGE COUNSELOR MINISTER Primary Care Provider [phone] Reason for Visit * Reason Comments Animal Bite Left hand Encounter Details Date Type Department Care Team (Late st Contact Info) Description 02/25/2025 3:15 PM EDT Office Visit [facility] [address] [place] [phone] Kae Toro APRN [address] [place], [place] [phone] Cat bite, initial encounter (Primary Dx) Social [...] Primary documented in this encounter Care Teams Certified Alcohol Counselor Relationship Specialty Start Date End Date Kae Toro APRN [address] [place], [place] [address] PCP - General Nurse Practitioner-Family 10/20/24 documented as of this encounter
--- NOTE | 2025-03-10 17:09 | ED_ITS ---
<Statement entered by Larissa Werner DO - 03/11/25 00:17> I was consulted by the DAWIT, and we discussed the complexity of problems being addressed. I approve the treatment and management plan for this patient's care in the emergency department, thus performing a substantial portion of the medical decision making. Larissa Werner DO Discharge Plan Disposition Patient Disposition: Home, Self-Care Condition: Good Prescriptions Prescriptions: New ondansetron 4 mg tablet,disintegrating 4 mg PO Q6H PRN (Reason: nausea and vomiting) Qty: 12 0RF No Action buspirone 10 mg tablet PO DAILY PRN Patient Comments: TAKE 1 TABLET BY MOUTH ONCE A DAY NEEDED promethazine 12.5 mg tablet 12.5 mg PO Q4-6H PRN (Reason: nausea and vomiting) Qty: 30 2RF Classic 28 mg iron- 800 mcg tablet 1 tab PO DAILY Qty: 30 11RF Referrals Follow up/Referrals: Provider,Referral, MD [Primary Care Provider, Medical] - See instructions Activity Restrictions/Add. Instructions Additional Instructions/Restrictions: You were evaluated on an emergency basis. It is very important that you follow- up with your primary care provider and any specialist who we discussed within the next 2 days in order to better assess your health more comprehensively. For example, incidental findings on imaging or laboratory results that were performed today may be discovered, which do not require immediate medical care, but may impact your health in the future. If your symptoms worsen or persist, please return to the emergency department immediately for reassessment. Take all medications as prescribed. In queue for allowing me to participate in your health care, and I hope you feel better soon. Clinical Impressions Clinical Impression: Vomiting during Instructions Patient Instructions: DI for Vomiting in Adults Print Language Print Language: Nepali Discharge ED Provider: Larissa Werner General Adult HPI General Chief complaint: Nausea/Vomiting/Diarrhea Stated complaint: vomiting,fever, Time Seen by Provider: 03/10/25 17:08 History of Present Illness HPI narrative: 19-year-old female that is approximate 31 weeks presents the emergency department with complaints of chills, nausea, vomiting since yesterday. She states she had a fever of 101 around lunchtime today but has not take any medication however fever has resolved. Patient denies diarrhea, vaginal bleeding, abdominal cramping. Related Data Home Medications ?Medication ?Instructions ?Recorded ?Confirmed buspirone 10 mg tablet mg PO DAILY PRN 10/27/24 Previous Rx's ?Medication ?Instructions ?Recorded promethazine 12.5 mg tablet 12.5 mg PO Q4-6H PRN nause a and 09/15/24 vomiting #30 tabs vits no.126-ferrous fum 1 tab PO DAILY #30 ta bs 09/29/24 28 mg iron-folic acid 800 mcg tablet (Classic ) ondansetron 4 mg disintegrating 4 mg PO Q6H PRN nausea and 03/10/25 tablet vomiting #12 tabs Allergies Allergy/AdvReac Type Severity Reaction Status Date / Time Penicillins Allergy Mild Hives Verified 03/04/25 16:13 [facility] Disclaimer: The information contained in this section may have been updated after the patient was seen, as this information can be updated by other users. Medical History Urinary tract infection symptoms Maternal obesity affecting , antepartum Encounter for supervision of other normal , second trimester Depression Anxiety Migraine Asthma Surgical History History of tympanostomy tube placement Social History Smoking Status: Current every day smoker tobacco type: e-cigarettes alcohol intake: never substance use type: denies use current occupational status: student Travel in the last 8 weeks?: None household members: family housing: house Have you lived/traveled outside US in past 30 days?: No Contact w/someone who lives/traveled outside US past 30 days?: No Exposure to someone with infectious disease in past 14 days?: No Do you have a fever (greater than 100.4 F or 38 C)?: No Have you tested positive for COVID-19?: No Exposed to someone with COVID-19 in past 14 days?: No Do you have a sore throat?: No Do you have a cough?: No Do you have any weakness?: No Do you have any diarrhea?: No Are you experiencing any unusual bleeding?: No Do you have any muscle aches/pain?: No Do you have any abdominal pain?: No Are you experiencing loss of taste or smell?: No Other Medical History Have you received the Flu Vaccine for this season: No Have you received the Pneumonia Vaccine: No ROS Obtained: Yes other Constitutional Constitutional: Reports chills Gastrointestinal Gastrointestingal: Reports nausea and vomiting Physical Exam Narrative Physical exam: General: Awake, aware, in no acute distress HEENT: Normocephalic, no evidence of trauma CV: RRR, no murmurs, rubs, or gallops Pulm: CTA bilaterally with no rhonchi, rales, wheezes ABD: Nontender, no swelling, guarding, or rebound tenderness Psych, appropriate mood and affect General General appearance: alert Respiratory Respiratory exam: Present normal lung sounds bilaterally Cardiovascular Cardiovascular exam: Present regular rate Neurological Exam Neurological exam: Present alert Medical Decision Making Medical Records Screening: Per USPSTF and CDC recommendations, given the prevalence of disease in our region, it is our hospital?s policy to screen for HIV and viral Hepatitis for all patients aged 18 and over and those with ongoing risk factors. Prem Inquiry Pt receiving controlled substance: No Vital Signs: 03/10/25 17:12 03/10/25 17:33 Temperature 97.9 F Temperature Source Oral Pulse Rate 80 Pulse Rate [Radial] 97 H Respiratory Rate 16 Blood Pressure 139/90 Blood Pressure [Right Arm] 124/79 Blood Pressure Mean 98 Blood Pressure Mean [Right Arm] 94 Blood Pressure Source [Right Arm] Automatic Cuff Blood Pressure Position [Right Arm] Sitting 02 Sat by Pulse Oximetry 99 97 Oxygen Delivery Method Room Air Lab Data Lab Results 03/10/25 17:32: WBC 10.3, RBC 3.95 L, Hgb 10.9 L, Hct 34.1 L, MCV 86.3, MCH 27.6, MCHC 32.0, RDW 14.2, Plt Count 333, MPV 10.3, Neut % (Auto) 79.6, Lymph % (Auto) 12.6, Mcnairy % (Auto) 5.9, Eos % (Auto) 1.0, Baso % (Auto) 0.3, Neut # (Auto) 8.2 H, Lymph # (Auto) 1.3, Mcnairy # (Auto) 0.6, Eos # (Auto) 0.1, Baso # (Auto) 0.0, Sodium 130 L, Potassium 4.0, Chloride 101, Carbon Dioxide 20 L, Anion Gap 13.0, BUN 7, Creatinine 0.60, Estimated Creat Clear 243, Estimated GFR 127, Est GFR ( Amer) 154, Glucose 82, Calcium 9.7, Magnesium 1.9, Total Bilirubin 1.1, AST 24, ALT 14, Alkaline Phosphatase 114, Total Protein 8.1, A lbumin 3.4 L, Globulin 4.7 H, Albumin/Globulin Ratio 0.7 L, Lipase 150, HCV Ab LUIS CARLOS w/Rflx PCR Qn Negative, HIV Ag/Ab Combo Qual Negative 03/10/25 17:36: SARS-CoV-2 (PCR) Not detected, Influenza A Untype (PCR) Not detected, Influenza Type B (PCR) Not detected 03/10/25 18:23: Urine Color Yellow, Urine Appearance Sl cloudy, Urine pH 6.0, Ur Specific [place] >= 1.030, Urine Protein Trace, Urine Glucose (UA) Negative, Urine Ketones 3+, Urine Blood Trace-i, Urine Nitrate Negative, Urine Bilirubin Negative, Urine Urobilinogen 2.0, Ur Leukocyte Esterase Negative, Urine RBC 5- 10, Urine WBC 10-20, Ur Squamous Epith Cells 50-100, Urine Bacteria 3+, Urine Mucus 4+ 03/10/25 17:32 03/10/25 17:32 Orders (Tests/Meds): ED MEDICATIONS Discontinued Medications Generic Name Dose Route Start Last Admin Trade Name Martínq PRN Reason Stop Dose Admin Sodium Chloride 1,000 mls @ 999 mls/hr 03/10/25 17:10 03/10/25 17:33 Sod Chlor 0.9% 1000ml Bag IV 03/10/25 18:10 999 mls/hr .Q1H1M ONE Administration Ondansetron HCl 4 mg 03/10/25 17:10 03/10/25 17:33 Ondansetron 4mg/2ml Vial IV 03/10/25 17:11 4 mg ONCE ONE Administration ORDERS Category Date Time Status CBC w/Auto Diff [Complete Blood Count Auto Diff] Stat Lab 03/10/25 17:32 Completed CMP [Comprehensive Metabolic Panel] Stat Lab 03/10/25 17:32 Completed HIV Combo Stat Lab 03/10/25 17:32 Completed Hepatitis C Ab Qual. W/ RFX Stat Lab 03/10/25 17:32 Completed Lipase Stat Lab 03/10/25 17:32 Completed Magnesium Stat Lab 03/10/25 17:32 Completed Rapid PCR Covid and Flu A/B Stat Lab 03/10/25 17:36 Completed Urinalysis and Microscopic Stat Lab 03/10/25 18:23 Completed Urine Culture Stat Micro 03/10/25 18:23 Received Medical Decision Narrative: Initial impression of presenting illness: 19-year-old female that is approximately 31 weeks presents to the emergency department with complaints of fever, nausea, vomiting, chills since last night. Reports she had a fever of 101 around lunchtime today however it has resolved without medications. Patient denies abdominal pain, cramping, vaginal bleeding. Differential diagnosis includes but is not limited to: Gastritis, gastroenteritis, other viral illness, urinary tract infection, constipation Patient arrives hemodynamically stable, afebrile, without respiratory distress with vital signs interpreted by myself. Initial physical exam unremarkable Initial diagnostic plan: Laboratory studies including urinalysis, heart tones, normal saline bolus for hydration, Zofran for nausea Results from initial plan were reviewed and interpreted by myself, pertinent positives include: Laboratory studies including COVID and flu swab were nonactionable. heart tones 150. Urinalysis was positive for 10-20 white blood cells per high-power field as well as 3+ bacteria and 4+ mucus however there were 50-100 epithelial cells per high-power field. Sample likely contaminated. We will wait for the urine culture results before treating for possible UTI. Interventions in the ED: Patient was given normal saline bolus for hydration as well as Zofran for nausea. Patient was made aware of the results and the findings, upon reevaluation patient has remained stable throughout stay, symptoms have improved. Patient is tolerating p.o. without difficulty. She has not had any episodes of nausea or vomiting during her ER stay. Disposition: Reviewed findings today's workup with patient informed no acute abnormalities were noted. I discussed the findings of her urinalysis but informed her I would like to wait for the culture results before treating with antibiotics as I am not sure that this is an actual UTI versus contaminated sample. Formed her that I will give her prescription for Zofran to help with her nausea. Recommended she increase her fluid intake and consume a bland diet and slowly advance as tolerated. Advised her to return to the emergency department any new or worsening symptoms. Recommended she follow-up with her OB provider. Patient was agreeable to plan of care. Patient made aware of findings and had a detailed discussion with symptomatic care and return precautions, patient voiced understanding. Critical Care Critical Care Time Critical Care Time: No
[2025-03-10 17:12] VITALS: BP 124/79; PULSE 97; RESP 16; TEMP 36.6; O2SAT 99; BMI 36.6
--- OUTSIDE RECORDS SUMMARY | 2025-03-10 17:26 | XMS_ITS | Encounter Summary ---
Author Organization [place] [address] Care Team Providers Care Debone Supervisor Name Role Phone Kae Toro BULLET LUBRICATING MACHINE OPERATOR Primary Care Provider [phone] Encounter Details Date Type Department Care Team (Late st Contact Info) Description 12/12/2024 Results Follow-Up [facility] [address] [place] [phone] Kae Toro APRN [address] [place] [address] URINE CULTURE (NO STAIN) Social History [...] maintain an ideal body weight General No aKe Toro APRN documented as of this encounter Visit Diagnoses Not on filedocumented in this encounter Care Teams Debone Supervisor Relationship Specialty Start Date End Date Kae Toro APRN [address] [place], [place] [address] PCP - General Nurse Practitioner-Family 10/20/24 documented as of this encounter
--- OUTSIDE RECORDS SUMMARY | 2025-03-10 17:26 | XMS_ITS | Encounter Summary ---
Author Organization [place] [address] Care Team Providers Care Mud Plant Operator Name Role Phone Kae Toro APRN Primary Care Provider [phone] Reason for Visit * Reason Onset Date Comments Appointment Needed 12/09/2024 ED Follow Up ([facility]) / Ongoing Migraine Encounter Details Date Type Department Care Team (Late st Contact Info) Description 12/09/2024 Telephone [facility] [address] [place] [phone] Kae Toro APRN [address] [place] [address] Appointment Needed (ED Follow Up ([facility]) / Ongoing Migraine) Social History Tobacco [...] Detailed Reason for Appt: ED Follow Up ([facility]) / Ongoing Migraine Requested Timeframe: Today [...] on filedocumented in this encounter Care Teams Mud Plant Operator Relationship Specialty Start Date End Date Kae Toro APRN [address] [place] [address] PCP - General Nurse Practitioner-Family 10/20/24 documented as of this encounter
--- OUTSIDE RECORDS SUMMARY | 2025-03-10 17:26 | XMS_ITS | Clinical Summary ---
Author Organization [facility] Address [address] [place] [address] Care Team Providers Care Logistics/Shipper Name Role Phone Rosie Fraga Primary Care [...] SDOH Screenings 2022 [facility]-Adult SDOH Screenings 2022 [facility]-MPCGQ-10 Vaccine ( season) 2025 [facility]-Influenza Vaccine (#1) [...] age to complete this topic Insurance [employer] [facility] MEDICAID Care Teams Logistics/Shipper Relationship Specialty Start Date End Date Rosie [place] [address] PCP - General System Designer 03/06/23
--- OUTSIDE RECORDS SUMMARY | 2025-03-10 17:26 | XMS_ITS | Clinical Summary ---
Author Organization [facility] Address [address] [facility] [address] [place] [address] Phone Care Team Providers Care Crystallizer Operator Name Role Phone Kae Toro APRN Primary Care Provider [phone] Allergies Active Allergy Reactions Criticality Noted Date [...] as needed. 30 Tablet 2 5 Active clindamycin (CLEOCIN) 300 mg Oral CapsuleIndicati ons:Cat bite, initial encounter Take 1 Capsule by mouth 3 times daily for 10 days. 30 Capsule 5 03/07/20 25 Active Problems Estimated Date of Delivery Comme nts Yes 05/07/2025 No known active problems Encounters Date Type Department Care Team Description 02/25/2025 3:15 PM EDT Office Visit [facility] [place] [phone] Kae Toro APRN Cat bite, initial encounter (Primary Dx) 12/12/2024 Results Follow-Up [facility] [place] [phone] Kae Toro APRN URINE CULTURE (NO STAIN) 12/10/2024 3:30 PM EDT Office Visit [facility] [place] [address] [place] [address] [place], [place] [phone] Kae Toro APRN Hospital discharge follow-up (Primary Dx); Viral illness; Nausea; 18 weeks gestation of 12/09/2024 Telephone [facility] [place] [address] [place], [place] [phone] Kae Toro APRN Appointment Needed (ED Follow Up ([facility]) / Ongoing Migraine) from Last 3 [...] (225 lb) 02/25/2025 3:03 PM EDT Height 169.2 cm (5' 6.6 ) 10/20/2024 9:23 AM EDT Body Mass Index 35.66 10/20/2024 9:23 AM EDT Plan of Treatment Health Maintenance Due Date Last Done Comments Chlamydia Screening 2020 Meningococcal B Vaccine (2 of 2 - Bexsero SCDM 2-dose series) 01/26/2021 07/26/2020 COVID-19 Vaccine ( season) 2025 Influenza Vaccine (#1) 2025 9, [...] ideal body weight General No Cortez, Kae, JAMES Procedures Procedure Name Priority Date/Time Associated Diagnosis Comments URINE CULTURE (NO STAIN) Routine 12/10/2024 3:59 PM EDT Nausea SE[facility] URINALYSIS POC Routine 12/10/2024 3: 57 PM EDT Nausea from Last 3 Months Results * URINE CULTURE (NO STAIN) (12/10/2024 3:59 PM EDT) Culture Multiple bacterial species isolated from urine consistent with urogenital commensal organisms. 12/12/2024 4:12 AM EDT [facility] Urine STRUCTURE OF URINARY TRACT PROPER / Unknown 12/10/2024 3:59 PM EDT 12/10/2024 3:59 PM EDT us Kae Toro APRN MICROBIOLOGY - GENERAL HELEN DIAS Final Result [facility] [address] [facility] , [place] [place] [address] * (ABNORMAL) SEP URINALYSIS POC [...] EDT 12/10/2024 3:59 PM EDT Kae Toro LIBERAL ARTS TEACHER POINT OF CARE TEST ORDERABL ES Final Result [facility] [address] [place] [id number] from Last 3 Months Insurance AETNA [facility] [address] [facility] [place] [address] Care Teams Crystallizer Operator Relationship Specialty Start Date End Date Kae Tor[place] [address] [place] [address] PCP - General Nurse Practitioner-Family 10/20/24
[2025-03-10 17:33] VITALS: BP 139/90; PULSE 80; O2SAT 97
[2025-03-10] MEDS: 0.9 % SODIUM CHLORIDE 1000ML 1,000 ML 999 ML IV (17:33)
[2025-03-10] MEDS: ONDANSETRON 4MG/2ML VIAL 4 MG IV (17:33)
[2025-03-10 17:41] LABS: Coronavirus 19, PCR Not Detected (NotDetected); Influenza A, PCR Not Detected (NotDetected); Influenza B, PCR Not Detected (NotDetected)
--- NOTE | 2025-03-10 17:45 | PC.NURSE ---
Heart tones 150s
[2025-03-10 17:48] LABS: Hematocrit 34.1 % (37.0-47.0); Hemoglobin 10.9 g/dL (12.2-16.2); Immature Granulocytes % 0.6 %; Mean Corpuscular HGB Conc 32.0 g/dL (31.8-35.4); Mean Corpuscular Hemoglobin 27.6 pg (27.0-31.2); Mean Corpuscular Volume 86.3 fl (81-99); Nucleated Red Blood Cells % 0 %; Platelet Count 333 K/mm3 (142-424); Red Blood Count 3.95 M/mm3 (4.20-5.40); Red Cell Distribution Width-SD 44.7 fL; White Blood Count 10.3 K/mm3 (4.5-13.0)
[2025-03-10 17:56] LABS: Alanine Aminotransferase 14 U/L (12-78); Albumin Level 3.4 g/dl (3.5-5.0); Albumin/Globulin Ratio 0.7 (1.1-1.8); Alkaline Phosphatase 114 U/L (38-126); Anion Gap 13.0 mEq/L (5-15); Aspartate Amino Transferase 24 U/L (14-36); Bilirubin,Total 1.1 mg/dl (0.2-1.3); Blood Urea Nitrogen 7 mg/dl (7-17); Calcium 9.7 mg/dl (8.4-10.2); Carbon Dioxide 20 mmol/L (22.0-30.0); Chloride 101 mmol/L (98-107); Creatinine Clearance Estimated 243 mL/min (50-200); Creatinine,Serum 0.60 mg/dl (0.52-1.04); Estimated Glomerular Filt Rate 127 ml/min (>60); GFR (African American) 154 ML/MIN (>60); Globulin 4.7 g/dL (1.3-3.2); Glucose 82 mg/dl (74-100); Lipase 150 U/L (23-300); Magnesium 1.9 mg/dl (1.6-2.3); Potassium 4.0 mmoL/L (3.5-5.1); Sodium 130 mmol/L (136-145); Total Protein,Serum 8.1 g/dl (6.3-8.2)
[2025-03-10 18:27] LABS: Microscopic, Urine URINE MICROSCOPIC (MICROSCOPIC)
[2025-03-10 18:33] LABS: Color,Urine YELLOW (Yellow); Glucose,Urine (UA) Negative (Negative); Ketones,Urine 3+ (Negative); Leukocyte Esterase,Urine Negative (Negative); PH,Urine 6.0 (5.0-8.5); Protein,Urine TRACE (Negative); Specific Gravity, Urine >= 1.030 (1.005-1.030); Urobilinogen,Urine 2.0 EU/dl (0.2)
[2025-03-10 18:46] LABS: Hepatitis C Ab Qual. W/ RFX NEGATIVE (Negative)
[2025-03-10 18:59] LABS: Bilirubin,Urine Negative (Negative)
[2025-03-10 19:14] LABS: Bacteria,Urine 3+ /lpf; Mucus,Urine 4+ /lpf; Squamous Epithelial Cell,Urine 50-100 #/hpf (0-5)
[2025-03-10 19:51] VITALS: BP 124/82; PULSE 71; RESP 20; TEMP 36.8; O2SAT 98
== END 2025-03-10 20:00 | disposition home or self-care (01) ==
PROVIDERS: Nurse Practitioner Family; Emergency Provider Student in an Organized Health Care Education/Training Program
DX: O21.9 Vomiting of pregnancy, unspecified (principal); E87.1 Hypo-osmolality and hyponatremia; R50.9 Fever, unspecified; Z3A.31 31 weeks gestation of pregnancy
CPT/HCPCS: 80053; 81001; 83690; 83735; 85025; 86803; 87086; 87389; 87636; 96361; 96374; 99284; 99285; J2405; J7030

== ENCOUNTER 2025-03-18 11:31 | Outpatient (CLI) | payer OTHER, SELFPAY ==
--- OUTSIDE RECORDS SUMMARY | 2025-02-25 14:15 | XMS_ITS | Encounter Summary ---
Author Organization [place] [address] Care Team Providers Care Sap Bw Architect Name Role Phone Kae Toro PROMOTIONAL MARKETING AGENT Primary Care Provider [phone] Reason for Visit * Reason Comments Animal Bite Left hand Encounter Details Date Type Department Care Team (Late st Contact Info) Description 02/25/2025 3:15 PM EDT Office Visit [facility] [address] [place] [phone] Kae Toro APRN [address] [place], [place] [phone] Cat bite, initial encounter (Primary Dx) Social [...] Primary documented in this encounter Care Teams Sap Bw Architect Relationship Specialty Start Date End Date Kae Toro APRN [address] [place], [place] [address] PCP - General Nurse Practitioner-Family 10/20/24 documented as of this encounter
--- OUTSIDE RECORDS SUMMARY | 2025-03-18 11:35 | XMS_ITS | Encounter Summary ---
Author Organization [place] [address] Care Team Providers Care Stretcher Leveler Operator Name Role Phone Kae Toro APRN Primary Care Provider [phone] Reason for Visit * Reason Onset Date Comments Appointment Needed 12/09/2024 ED Follow Up ([facility]) / Ongoing Migraine Encounter Details Date Type Department Care Team (Late st Contact Info) Description 12/09/2024 Telephone [facility] [place] [address] [place] [phone] Kae Toro APRN [address] [place] [address] Appointment Needed (ED Follow Up ([facility]) / Ongoing Migraine) Social History Tobacco [...] Detailed Reason for Appt: ED Follow Up ([facility]) / Ongoing Migraine Requested Timeframe: Today [...] on filedocumented in this encounter Care Teams Stretcher Leveler Operator Relationship Specialty Start Date End Date Kae Toro APRN [address] [place], [place] [address] PCP - General Nurse Practitioner-Family 10/20/24 documented as of this encounter
--- OUTSIDE RECORDS SUMMARY | 2025-03-18 11:36 | XMS_ITS | Clinical Summary ---
Author Organization [facility] Address [address] [place] [address] Care Team Providers Care Roofer Assistant Name Role Phone Rosie Fraga Primary Care [...] SDOH Screenings 2022 [facility]-Adult SDOH Screenings 2022 [id number] Vaccine ( season) 2025 [facility]-Influenza Vaccine (#1) [...] age to complete this topic Insurance AETNA [facility] MEDICAID Care Teams Roofer Assistant Relationship Specialty Start Date End Date Rosie [place] [address] PCP - General Weight Loss Consultant 03/06/23
--- OUTSIDE RECORDS SUMMARY | 2025-03-18 11:36 | XMS_ITS | Clinical Summary ---
Author Organization [facility] Address [address] [facility] [address] [place] [address] Phone Care Team Providers Care Transformation Coach Name Role Phone Kae Toro APRN Primary [...] 02/25/2025 3:15 PM EDT Office Visit [facility] [place] [address] [place] [phone] Kae Toro APRN Cat bite, initial encounter (Primary Dx) from Last 3 Months Immunizations Immunization Administration [...] weight General No Kae Toro APRN Insurance [facility] [address] [facility] [address] Care Teams Transformation Coach Relationship Specialty Start Date End Date Kae [place] [address] [place] [address] PCP - General Nurse Practitioner-Family 10/20/24
--- OUTSIDE RECORDS SUMMARY | 2025-03-18 11:36 | XMS_ITS | Encounter Summary ---
Author Organization [place] [address] Care Team Providers Care Licensed Funeral Director Name Role Phone Kae Toro BOOMSWING OPERATOR Primary Care Provider [phone] Encounter Details Date Type Department Care Team (Late st Contact Info) Description 12/12/2024 Results Follow-Up [facility] [address] [place] [phone] Kae Toro APRN [address] [place] [address] URINE CULTURE (NO STAIN) Social History [...] on filedocumented in this encounter Care Teams Licensed Funeral Director Relationship Specialty Start Date End Date Kae Toro APRN [address] [place], [place] [address] PCP - General Nurse Practitioner-Family 10/20/24 documented as of this encounter
[2025-03-18 11:58] LABS: Hematocrit 30.3 % (37.0-47.0); Hemoglobin 9.8 g/dL (12.2-16.2); Immature Granulocytes % 0.3 %; Mean Corpuscular HGB Conc 32.3 g/dL (31.8-35.4); Mean Corpuscular Hemoglobin 28.0 pg (27.0-31.2); Mean Corpuscular Volume 86.6 fl (81-99); Nucleated Red Blood Cells % 0 %; Platelet Count 263 K/mm3 (142-424); Red Blood Count 3.50 M/mm3 (4.20-5.40); Red Cell Distribution Width-SD 45.1 fL; White Blood Count 6.5 K/mm3 (4.5-13.0)
[2025-03-18 13:19] LABS: Alanine Aminotransferase 184 U/L (12-78); Albumin Level 3.3 g/dl (3.5-5.0); Albumin/Globulin Ratio 1.0 (1.1-1.8); Alkaline Phosphatase 90 U/L (38-126); Anion Gap 8.6 mEq/L (5-15); Aspartate Amino Transferase 120 U/L (14-36); Bilirubin,Total 0.5 mg/dl (0.2-1.3); Blood Urea Nitrogen 5 mg/dl (7-17); Calcium 8.8 mg/dl (8.4-10.2); Carbon Dioxide 22 mmol/L (22.0-30.0); Chloride 105 mmol/L (98-107); Creatinine,Serum 0.60 mg/dl (0.52-1.04); Estimated Glomerular Filt Rate 127 ml/min (>60); GFR (African American) 154 ML/MIN (>60); Globulin 3.4 g/dL (1.3-3.2); Glucose 80 mg/dl (74-100); Potassium 3.6 mmoL/L (3.5-5.1); Sodium 132 mmol/L (136-145); Total Protein,Serum 6.7 g/dl (6.3-8.2); Uric Acid 5.0 mg/dl (2.5-6.2)
== END 2025-03-18 23:59 | disposition home or self-care (01) ==
LOC: LAB 14:46
PROVIDERS: PCP Nurse Practitioner; Visit Provider Obstetrics & Gynecology
DX: O16.3 Unspecified maternal hypertension, third trimester (principal); Z3A.00 Weeks of gestation of pregnancy not specified
CPT/HCPCS: 36415; 80053; 84550; 85025

== ENCOUNTER 2025-03-21 18:12 | Inpatient (IN) | payer OTHER, SELFPAY ==
--- OUTSIDE RECORDS SUMMARY | 2025-02-25 14:15 | XMS_ITS | Encounter Summary ---
Author Organization [place] [address] Care Team Providers Care Press Shop Supervisor Name Role Phone Kae Toro ASSESSMENT DIRECTOR Primary Care Provider [phone] Reason for Visit * Reason Comments Animal Bite Left hand Encounter Details Date Type Department Care Team (Late st Contact Info) Description 02/25/2025 3:15 PM EDT Office Visit [facility] [address] [place] [phone] Kae Toro APRN [address] [place], [place] [phone] Cat bite, initial encounter (Primary Dx) Social History Tobacco Use Types Packs/Day Years [...] Sign Reading Time Taken Comments Blood Pressure 116/77 02/25/2025 3:03 PM EDT Pulse 84 02/25/2025 3:03 PM EDT Temperature 36.2 C (97.1 F) 02/25/2025 3:03 PM EDT Respiratory Rate 18 02/25/2025 3:03 PM EDT Oxygen Saturation 99% 02/25/2025 3:03 PM EDT Inhaled Oxygen Concentration - - Weight 102.1 kg (225 lb) 02/25/2025 3:03 PM EDT Height - - Body Mass Index 35.66 10/20/2024 9:23 AM EDT documented in this encounter Functional Status * Is the person deaf or does he/she have serious difficulty hearing? Answer Date of Assessment Author No 10/20/2024 9:23 AM EDLiset Carnes CCMA * Is the person blind or does he/she have serious difficulty seeing even when wearing glasses? Answer Date of Assessment Author No 10/20/2024 9:23 AM EDLiset Carnes CCMA * Does this person have serious [...] Entry Date Author No 10/20/2024 9:23 AM EDLiset Carnes CCMA documented in this encounter Ordered Prescriptions Prescription Sig Dispense Quantity Refills Last Filled Start Date End Date clindamycin (CLEOCIN) 300 mg Oral CapsuleIndications :Cat bite, initial encounter Take 1 Capsule by mouth 3 times daily for 10 days. 30 Capsule 02/25/2025 documented in this encounter Progress Notes * Kae Toro APRN - 02/25/2025 3:15 PM EDT Assessment & Plan Cat bite, initial encounter Allergy to PCN; will cover with clindamycin Recommend warm compresses. Monitor for s/sx of worsening infection and followup closely. Orders: clindamycin (CLEOCIN) 300 mg Oral Capsule; Take 1 Capsule by mouth 3 times daily for 10 days. Progress Note: Vitals: 02/25/25 1503 BP: 116/77 Pulse: 84 Resp: 18 Temp: 97.1 ??F (36.2 ??C) TempSrc: Forehead SpO2: 99% Weight: 225 lb (102.1 kg) Body mass index is 35.66 kg/m??. SUBJECTIVE: Chief Complaint Patient presents with Animal Bite Left hand HPI: , no complications. Has cat bite to left hand base of left thigh, occurred two days ago. Red, warm and tender. Thumb isstiff. No red streaks. No fever. Is . No complications. Allergy to pCN Review of Systems Constitutional: Negative for fever. HENT: Negative for congestion. Respiratory: Negative for cough, shortness of breath and wheezing. Cardiovascular: Negative for chest pain, palpitations and leg swelling. Skin: Positive for wound. Hematological: Negative for adenopathy. OBJECTIVE: Physical Exam Constitutional: Appearance: Normal appearance. HENT: Head: Normocephalic and atraumatic. Pulmonary: Effort: Pulmonary effort is normal. Skin: Findings: Erythema (two puncture wounds over dorsum aspect of base of left thumb with erythema.) present. Neurological: Mental Status: She is alert and [...] as of this encounter Visit Diagnoses Diagnosis Cat bite, initial encounter- Primary documented in this encounter Care Teams Press Shop Supervisor Relationship Specialty Start Date End Date Kae Toro APRN [address] [place], [place] [address] PCP - General Nurse Practitioner-Family 10/20/24 documented as of this encounter
--- OUTSIDE RECORDS SUMMARY | 2025-03-21 17:26 | XMS_ITS | Encounter Summary ---
Author Organization [place] [address] Care Team Providers Care Piece Marker Small Arms Name Role Phone Kae Toro CARAMEL CANDY MAKER Primary Care Provider [phone] Encounter Details Date Type Department Care Team (Late st Contact Info) Description 12/12/2024 Results Follow-Up [facility] [address] [place] [phone] Kae Toro APRN [address] [place] [address] URINE CULTURE (NO STAIN) Social History [...] on filedocumented in this encounter Care Teams Piece Marker Small Arms Relationship Specialty Start Date End Date Kae Toro APRN [address] [place], [place] [address] PCP - General Nurse Practitioner-Family 10/20/24 documented as of this encounter
--- OUTSIDE RECORDS SUMMARY | 2025-03-21 17:26 | XMS_ITS | Clinical Summary ---
Author Organization [facility] Address [address] [facility] [address] [place] [address] Phone Care Team Providers Care Auto Rebuilder Name Role Phone Kae Toro APRN Primary Care Provider [phone] Allergies Active Allergy Reactions Criticality Noted Date [...] PM EDT Office Visit [facility] [place] [address] [place] [phone] Kae Toro APRN Cat bite, initial [...] weight General No Kae Toro APRN Insurance [facility] [address] [facility] [address] Care Teams Auto Rebuilder Relationship Specialty Start Date End Date Kae [place] [place] [address] PCP - General Nurse Practitioner-Family 10/20/24
--- OUTSIDE RECORDS SUMMARY | 2025-03-21 17:26 | XMS_ITS | Clinical Summary ---
Author Organization [facility] Address [address] [place] [address] Care Team Providers Care Health It Specialist Name Role Phone Rosie Fraga Primary Care [...] SDOH Screenings 2022 [facility]-Adult SDOH Screenings 2022 [id number] Vaccine ( season) 2025 [facility]-Influenza Vaccine (#1) [...] age to complete this topic Insurance AETNA [facility] MEDICAID Care Teams Health It Specialist Relationship Specialty Start Date End [place] [address] PCP - General Hogshead Inspector 03/06/23
--- OUTSIDE RECORDS SUMMARY | 2025-03-21 17:26 | XMS_ITS | Encounter Summary ---
Author Organization [place] [address] Care Team Providers Care Cytogenetic Technician Name Role Phone Kae Toro APRN Primary Care Provider [phone] Reason for Visit * Reason Onset Date Comments Appointment Needed 12/09/2024 ED Follow Up ([facility]) / Ongoing Migraine Encounter Details Date Type Department Care Team (Late st Contact Info) Description 12/09/2024 Telephone [facility] [address] [place] [phone] Kae Toro APRN [address] [place] [address] Appointment Needed (ED Follow Up ([facility]) / Ongoing Migraine) Social History Tobacco Use [...] Detailed Reason for Appt: ED Follow Up ([facility]) / Ongoing Migraine Requested Timeframe: Today around [...] on filedocumented in this encounter Care Teams Cytogenetic Technician Relationship Specialty Start Date End Date Kae Toro APRN [address] [place], [place] [address] PCP - General Nurse Practitioner-Family 10/20/24 documented as of this encounter
[2025-03-21 17:33] VITALS: BMI 35.3
[2025-03-21 17:36] LABS: Microscopic, Urine URINE MICROSCOPIC (MICROSCOPIC)
[2025-03-21 17:42] LABS: Bilirubin,Urine Negative (Negative); Color,Urine YELLOW (Yellow); Glucose,Urine (UA) Negative (Negative); Ketones,Urine Negative (Negative); Leukocyte Esterase,Urine Negative (Negative); PH,Urine 6.5 (5.0-8.5); Protein,Urine Negative (Negative); Specific Gravity, Urine <= 1.005 (1.005-1.030); Urobilinogen,Urine 0.2 EU/dl (0.2)
[2025-03-21 17:48] LABS: Bacteria,Urine Trace /lpf; WBC,Urine Occasional #/hpf (0-3)
--- NOTE | 2025-03-21 18:02 | US_ITS ---
PROCEDURE: US OB FOLLOW UP CLINICAL INDICATION: demise COMPARISON: US US OB <= 14 WEEKS FETUS from 10/07/2024 US US OB >= 14 WEEKS FETUS from 12/18/2024 US US OB FOLLOW UP from 12/31/2024 FINDINGS: Transabdominal sonographic images of the pelvis were obtained. The following parameters are obtained: From her established due date she is 33weeks 2days Viable fetus in the cephalic presentation with an anterior placenta grade 1. The cervix measures 2.37 cm in length heart tones are absent. Average ultrasound age 31 weeks 5 days Estimated weight 1599 grams, 3 lb 8 oz BPD: 32weeks 1day, 15 percentile HC: 33weeks 2days, 15 percentile AC: 28weeks 5days, <2 percentile FL: 32weeks 3days, 16 percentile HC/AC: 1.23 FL/BPD: 0.78 FL/AC: 0.26 Growth percentile: <2 percentile Amniotic fluid: Anhydramnios anatomical scan not performed. IMPRESSION: 1. Fetus in the cephalic presentation with absent heart tones. 2. The placenta is anterior grade 1. 3. There appears to be anhydramnios with no fluid pockets seen. 4. Fetus is small for gestational age <2nd percentile. 5. Anatomical scan was not performed. Dictated by: Hussain Rodas MD 03/22/2025 09:33 Hussain Rodas MD in OV 03/22/2025 09:33
[2025-03-21 18:12] LABS: Hematocrit 30.5 % (37.0-47.0); Hemoglobin 9.9 g/dL (12.2-16.2); Immature Granulocytes % 0.3 %; Mean Corpuscular HGB Conc 32.5 g/dL (31.8-35.4); Mean Corpuscular Hemoglobin 27.5 pg (27.0-31.2); Mean Corpuscular Volume 84.7 fl (81-99); Nucleated Red Blood Cells % 0 %; Platelet Count 298 K/mm3 (142-424); Red Blood Count 3.60 M/mm3 (4.20-5.40); Red Cell Distribution Width-SD 44.0 fL; White Blood Count 9.2 K/mm3 (4.5-13.0)
[2025-03-21 18:15] LABS: Albumin Level 4.2 g/dl (3.5-5.0); Chloride 102 mmol/L (98-107); Potassium 4.3 mmoL/L (3.5-5.1); Sodium 132 mmol/L (136-145)
[2025-03-21 18:18] LABS: Alanine Aminotransferase 167 U/L (12-78); Albumin/Globulin Ratio 1.5 (1.1-1.8); Alkaline Phosphatase 86 U/L (38-126); Anion Gap 11.3 mEq/L (5-15); Aspartate Amino Transferase 95 U/L (14-36); Bilirubin,Total 0.6 mg/dl (0.2-1.3); Blood Urea Nitrogen 6 mg/dl (7-17); Calcium 9.4 mg/dl (8.4-10.2); Carbon Dioxide 23 mmol/L (22.0-30.0); Creatinine Clearance Estimated 235 mL/min (50-200); Creatinine,Serum 0.60 mg/dl (0.52-1.04); Estimated Glomerular Filt Rate 127 ml/min (>60); GFR (African American) 154 ML/MIN (>60); Globulin 2.8 g/dL (1.3-3.2); Glucose 87 mg/dl (74-100); Total Protein,Serum 7.0 g/dl (6.3-8.2); Uric Acid 3.7 mg/dl (2.5-6.2)
[2025-03-21 18:19] LABS: Magnesium 1.7 mg/dl (1.6-2.3)
[2025-03-21 18:32] VITALS: BP 149/91; PULSE 94; RESP 17; O2SAT 98; BMI 35.2
--- NOTE | 2025-03-21 18:49 | EXP.HP ---
History of Present Illness *Admission Date: 03/21/25 *Reason for visit:: Stillbirth *History of present illness: Shantell Segundo is a very pleasant 19yo at 33 weeks and 2 days gestation, based on LMP, consisent with first trimester US. Shantell presented to labor and delivery secondary to not feeling movement since yesterday at 11am. Her has been complicated by chronic vs gestational hypertension. Her BP at 8 and 12 weeks were slightly elevated but then it was normal until 32w6d weeks gestation. On presentation patient denied any leakage of fluid or vaginal bleeding. She denies headaches or vision changes. Denies elevated BP at home. denies RUQ pain. A+, antibody negative, rubella immune, hepatitis B negative, hepatitis C negative, RPR negative, HIV negative 1 hour GTT: not completed GBS unknown [facility] Disclaimer: The information contained in this section may have been updated after the patient was seen, as this information can be updated by other users. Medical History (Updated 03/21/25 @ 19:15 by Malena Simpson DO) Elevated blood pressure affecting in third trimester, antepartum Urinary tract infection symptoms Maternal obesity affecting , antepartum Encounter for supervision of other normal , second trimester Depression Anxiety Migraine Asthma Surgical History History of tympanostomy tube placement Social History Smoking Status: Current every day smoker tobacco type: e-cigarettes alcohol intake: never substance use type: denies use current occupational status: unemployed Travel in the last 8 weeks?: None household members: family housing: house Have you lived/traveled outside US in past 30 days?: No Contact w/someone who lives/traveled outside US past 30 days?: No Exposure to someone with infectious disease in past 14 days?: No Do you have a fever (greater than 100.4 F or 38 C)?: No Have you tested positive for COVID-19?: No Exposed to someone with COVID-19 in past 14 days?: No Do you have a sore throat?: No Do you have a cough?: No Do you have any weakness?: No Do you have any diarrhea?: No Are you experiencing any unusual bleeding?: No Do you have any muscle aches/pain?: No Do you have any abdominal pain?: No Are you experiencing loss of taste or smell?: No Other Medical History Have you received the Flu Vaccine for this season: No Have you received the Pneumonia Vaccine: No Review of Systems Review of Systems Review of systems (narrative): Review of Systems Constitutional: Denies fever, chills, and sweats Eyes: Denies vision change/ pain Respiratory: Denies cough and shortness of breath Cardiovascular: Denies chest pain and lightheadedness Gastrointestinal: denies abdominal pain. Denies nausea, vomiting. Genitourinary: Denies dysuria and incontinence. dneis vaginal bleeding or LOF Musculoskeletal: Denies shoulder pain and back pain Neurological: Denies change in speech or headaches Meds Home Medications and Allergies Home Medications ?Medication ?Instructions ?Recorded ?Confirmed ?Type promethazine 12.5 mg tablet 12.5 mg PO Q4-6H PRN nausea and 09/15/24 03/18/25 Rx vomiting #30 tabs vits no.126-ferrous fum 1 tab PO DAILY #30 tabs 09/29/24 03/18/25 Rx 28 mg iron-folic acid 800 mcg tablet (Classic ) buspirone 10 mg tablet mg PO DAILY PRN 10/27/24 03/18/25 History ondansetron 4 mg disintegrating 4 mg PO Q6H PRN nausea and 03/10/25 03/18/25 Rx tablet vomiting #12 tabs New Prescriptions to Start Prescriptions: Allergies Allergy/AdvReac Type Severity Reaction Status Date / Time Penicillins Allergy Mild Hives Verified 03/18/25 10:21 Exam Data for Last 24 hours Vital signs and Labs for Last 24 Hours: Pulse Resp BP Pulse Ox O2 Del Method 94 H 17 149/91 H 98 Room Air 03/21/25 18:32 03/21/25 18:32 03/21/25 18:32 03/21/25 18:32 03/21/25 18:32 Laboratory Results - last 24 hr 03/21/25 17:23: Urine Color Yellow, Urine Appearance Clear, Urine pH 6.5, Ur Specific [place] <= 1.005, Urine Protein Negative, Urine Glucose (UA) Negative, Urine Ketones Negative, Urine Blood Negative, Urine Nitrate Negative, Urine Bilirubin Negative, Urine Urobilinogen 0.2, Ur Leukocyte Esterase Negative, Urine RBC None, Urine WBC Occasional, Ur Squamous Epith Cells 3-5, Urine Bacteria Trace, Urine Creatinine 47, Urine Total Protein 12.0 03/21/25 18:00: WBC 9.2, RBC 3.60 L, Hgb 9.9 L, Hct 30.5 L, MCV 84.7, MCH 27.5, MCHC 32.5, RDW 14.4, Plt Count 298, MPV 10.4, Neut % (Auto) 74.2, Lymph % (Auto) 16.6, [place] % (Auto) 7.6, Eos % (Auto) 1.0, Baso % (Auto) 0.3, Neut # (Auto) 6.8, Lymph # (Auto) 1.5, [place] # (Auto) 0.7, Eos # (Auto) 0.1, Baso # (Auto) 0.0, Sodium 132 L, Potassium 4.3, Chloride 102, Carbon Dioxide 23, Anion Gap 11.3, BUN 6 L, Creatinine 0.60, Estimated Creat Clear 235, Estimated GFR 127, Est GFR ( Amer) 154, Glucose 87, Uric Acid 3.7, Calcium 9.4, Magnesium 1.7, Total Bilirubin 0.6, AST 95 H, ALT 167 H, Alkaline Phosphatase 86, Total Protein 7.0, Albumin 4.2, Globulin 2.8, Albumin/Globulin Ratio 1.5 I & O for Last 24 hours: Intake & Output 03/18/25 03/19/25 03/20/25 03/21/25 23:59 23:59 23:59 23:59 Weight 219 lb 0.009 oz Narrative: General: patient is alert oriented in no acute distress and responds appropriately to questions. HEENT: NCAT, EOMI, moist mucous membranes, neck supple with full ROM Cardiovascular: RRR +S1/S2, no murmurs or rubs Pulmonary: Clear to auscultation bilaterally, nonlabored breathing, symmetric chest rise Abdominal: Gravid abdomen appropriate for gestation. No guarding, rebound, or tenderness noted. Extremities: trace edema, no tenderness or cyanosis noted Skin: Normal turgor, intact, warm. Negative for erythema, pallor, petechia, or lesions Neurologic: Negative for sensory or motor deficit Psychiatric: Normal affect, normal thought process, good judgment and insight, no depression or anxious mood appreciated. *Routine HEENT Exam Head: Present normocephalic and atraumatic Eye: Present EOMI, PERRL and normal accommodation; Absent conjunctival icterus, scleral injection, nystagmus or exophthalmos ENT: Present mucous membranes moist *Routine Respiratory Exam Respiratory: Present CTA bilaterally, normal respiratory effort, able to speak in complete sentences and symmetric chest movement; Absent accessory muscle use, decreased breath sounds, rales, respiratory distress, wheezes, distant breath sounds or diminished air movement *Routine Cardiovascular Exam Cardiovascular: Present RRR, Normal S1 and Normal S2; Absent murmur or gallop *Routine Abdominal Exam Abdominal: Present soft and normoactive bowel sounds; Absent tenderness, distended, rebound or guarding *Routine Rectal Exam Rectal:: deferred *Routine Genitalia Exam Genitalia:: normal female Assessment and Plan *Assessment and plan (1) Gestational hypertension: Status: Acute Category: Medical Code(s): O13.9 - Gestational [-induced] hypertension without significant proteinuria, unspecified trimester (2) Depression: Status: Acute Qualifiers: Depression Type: unspecified Qualified Code(s): F32.A - Depression, unspecified Category: Medical Code(s): F32.A - Depression, unspecified (3) Anxiety: Status: Acute Category: Medical Code(s): F41.9 - Anxiety disorder, unspecified (4) Anemia: Status: Acute Category: Medical Code(s): D64.9 - Anemia, unspecified (5) Fresh stillbirth: Status: Acute Category: Medical Code(s): P95 - Stillbirth (6) Stillbirth with antepartum : Status: Acute Category: Medical Code(s): Z37.1 - Single stillbirth (7) Obesity: Status: Acute Category: Medical Code(s): E66.9 - Obesity, unspecified (8) Encounter for induction of labor: Status: Acute Category: Medical Code(s): Z34.90 - Encounter for supervision of normal , unspecified, unspecified trimester Plan - Monitor vitals - Admit to L&D for induction of labor - Plan for induction with 50mcg of PO cytotec x7sqakg per protocol - External TOCO monitor - Exam on admission: closed - GBS unknown/ Blood type: A+ - Hemoglobin: 9.9, Plt: 298 - Plan for epidural anesthesia - Anticipate vaginal delivery of male infant: Bradley Patel #Anemia - Normocytic, present on admission #Gestational Hypertension #Stillbirth - Monitor BP and vitals closely - No proteinuria based on [facility] labs obtained, LFTs were elevated. remained elevated but slightly improved - Uric acid slightly elevated but improved - Magnesium discussed but given no severe range BP we are going to monitor closely with a low threshold to start magnesium. - Discussed Stillbirth evaluation and patient is still considering options. Agreeable to placenta pathology - US ordered, vtx. 3lb8oz. Oligohydramnios, no cardiac activity. Official report pending. Reviewed imaging and was bedside for scan. No signs of abruption. - Discussed infectious workup and pt consented. She had had N/V in but denies any diarrhea or sick contracts. Discussed options for IOL vs primary CD. At this time the pt desires IOL. Discussed risks and benefits of each. Discussed terminal make up operator complications with multiple CS including adhesions and PAS. I reminded the patient at length that this was not her fault and that she was an excellent mom. Tissues and hugs and comfort provided.
[2025-03-21 19:18] VITALS: BP 121/68; PULSE 84
[2025-03-21 20:02] VITALS: BP 116/75; PULSE 78
[2025-03-21 21:06] VITALS: BP 124/75; PULSE 70
[2025-03-21] MEDS: ACETAMINOPHEN 500MG TAB 1000 MG PO (21:29)
[2025-03-21 22:08] VITALS: BP 133/76; PULSE 87
[2025-03-22 00:11] VITALS: BP 127/64; PULSE 80; RESP 16; TEMP 36.3; O2SAT 97
[2025-03-22 04:09] VITALS: BP 124/70; PULSE 81; RESP 17; TEMP 37.1; O2SAT 97
[2025-03-22] MEDS: ONDANSETRON 4MG/2ML VIAL 4 MG IV ×2 (04:37→15:34)
[2025-03-22 07:57] LABS: Hematocrit 32.9 % (37.0-47.0); Hemoglobin 10.3 g/dL (12.2-16.2); Immature Granulocytes % 0.3 %; Mean Corpuscular HGB Conc 31.3 g/dL (31.8-35.4); Mean Corpuscular Hemoglobin 27.0 pg (27.0-31.2); Mean Corpuscular Volume 86.1 fl (81-99); Nucleated Red Blood Cells % 0 %; Platelet Count 281 K/mm3 (142-424); Red Blood Count 3.82 M/mm3 (4.20-5.40); Red Cell Distribution Width-SD 45.3 fL; White Blood Count 6.8 K/mm3 (4.5-13.0)
[2025-03-22 08:06] LABS: Alanine Aminotransferase 191 U/L (12-78); Albumin Level 3.7 g/dl (3.5-5.0); Albumin/Globulin Ratio 1.0 (1.1-1.8); Alkaline Phosphatase 96 U/L (38-126); Anion Gap 9.0 mEq/L (5-15); Aspartate Amino Transferase 115 U/L (14-36); Bilirubin,Total 0.6 mg/dl (0.2-1.3); Blood Urea Nitrogen 6 mg/dl (7-17); Calcium 9.4 mg/dl (8.4-10.2); Carbon Dioxide 24 mmol/L (22.0-30.0); Chloride 103 mmol/L (98-107); Creatinine Clearance Estimated 235 mL/min (50-200); Creatinine,Serum 0.60 mg/dl (0.52-1.04); Estimated Glomerular Filt Rate 127 ml/min (>60); GFR (African American) 154 ML/MIN (>60); Globulin 3.7 g/dL (1.3-3.2); Glucose 88 mg/dl (74-100); Potassium 4.0 mmoL/L (3.5-5.1); Sodium 132 mmol/L (136-145); Total Protein,Serum 7.4 g/dl (6.3-8.2)
[2025-03-22 08:48] VITALS: BP 123/77; PULSE 78; RESP 17; TEMP 36.9; O2SAT 100
[2025-03-22] MEDS: BUTORPHANOL TARTRATE 1 MG/ML VIAL IV ×3 (14:24→21:04)
[2025-03-22 14:28] VITALS: BP 118/77; PULSE 77; RESP 15; O2SAT 97
[2025-03-22] MEDS: SODIUM CHLORIDE 0.9% 25ML BAG 25 ML IV (21:04)
[2025-03-22] MEDS: PROMETHAZINE HCL 25MG/ML 1ML VIAL 12.5 MG IV (21:04)
[2025-03-23] MEDS: BUTORPHANOL TARTRATE 1 MG/ML VIAL IV ×2 (00:01→02:24)
[2025-03-23] MEDS: ONDANSETRON 4MG/2ML VIAL 4 MG IV (01:16)
[2025-03-23] MEDS: MORPHINE 2MG/ML SYRINGE 2 MG IV (01:16)
[2025-03-23] MEDS: LACTATED RINGERS 1000ML 1,000 ML 500 ML IV (03:16)
[2025-03-23] MEDS: HYDROMORPHONE 2MG/ML SYRINGE 1 MG IV (03:20)
[2025-03-23] MEDS: OXYTOCIN/RINGERS LACTATE 30 UNITS/500 ML BAG 999 UNITS IV (03:35)
--- NOTE | 2025-03-23 03:47 | P.PCN_ITS ---
Delivery Note Delivery Date:: 03/23/25 Delivery Time:: 03:32 Was labor medically induced?: No Gestational age (weeks): 33 Infant delivered prior to 39 weeks?: Yes Justification for early elective delivery:: Demise Infant Gender: Male at 1 minute: 0 at 5 minutes: 0 Delivery Procedure:: Mom complete. Pushed for approximately 30 seconds. Head delivered spontaneously over intact perineum. Nuchal cord x 2 tight, unable to be reduced. Anterior shoulder delivered spontaneously. Posterior shoulder and remainder of body delivered spontaneously. No movement, no breathing, no cardiac activity. Baby placed on chux pad. Cord was clamped and cut by father of baby. [facility] taken to [facility] and cleaned and wrapped in a blanket. Male baby appeared grossly morphologically normal. Placenta delivered spontaneously and intact with a three vessel cord. Placenta will be sent to pathology for review. No lacerations. Mom was doing well after delivery. male baby, Bradley Patel. Weight pending at this time APGARs 0 (1 min), 0 (5 min) EBL 25 mL Placental Delivery Description: Spontaneous
--- NOTE | 2025-03-23 04:47 | PC.NURSE ---
ADAIR notified of stillbirth per our loss policy. per Shannon Wills. It is okay for home to come when family is ready
[2025-03-23] MEDS: IBUPROFEN 400 MG TABLET 800 MG PO (09:21)
[2025-03-23] MEDS: ACETAMINOPHEN 500MG TAB 1000 MG PO (09:21)
[2025-03-23 10:14] LABS: Cytomegalovirus (CMV) Ab, IgG <0.60 U/mL (0.00-0.59)
[2025-03-23 11:25] LABS: Cytomegalovirus (CMV) Ab, IgM <30.0 AU/mL (0.0-29.9); Toxoplasma gondii Ab,IgG,Qn <3.0 IU/mL (0.0-7.1); Toxoplasma gondii Ab,IgM,Qn <3.0 AU/mL (0.0-7.9)
[2025-03-23 12:58] LABS: Hematocrit 31.4 % (37.0-47.0); Hemoglobin 10.3 g/dL (12.2-16.2); Immature Granulocytes % 0.3 %; Mean Corpuscular HGB Conc 32.8 g/dL (31.8-35.4); Mean Corpuscular Hemoglobin 27.5 pg (27.0-31.2); Mean Corpuscular Volume 84.0 fl (81-99); Nucleated Red Blood Cells % 0 %; Platelet Count 316 K/mm3 (142-424); Red Blood Count 3.74 M/mm3 (4.20-5.40); Red Cell Distribution Width-SD 43.6 fL; White Blood Count 10.3 K/mm3 (4.5-13.0)
[2025-03-23 13:35] LABS: Alanine Aminotransferase 240 U/L (12-78); Albumin Level 3.4 g/dl (3.5-5.0); Albumin/Globulin Ratio 1.0 (1.1-1.8); Alkaline Phosphatase 103 U/L (38-126); Anion Gap 9.6 mEq/L (5-15); Aspartate Amino Transferase 147 U/L (14-36); Bilirubin,Total 0.7 mg/dl (0.2-1.3); Blood Urea Nitrogen 8 mg/dl (7-17); Calcium 9.5 mg/dl (8.4-10.2); Carbon Dioxide 24 mmol/L (22.0-30.0); Chloride 100 mmol/L (98-107); Creatinine Clearance Estimated 201 mL/min (50-200); Creatinine,Serum 0.70 mg/dl (0.52-1.04); Estimated Glomerular Filt Rate 107 ml/min (>60); GFR (African American) 129 ML/MIN (>60); Globulin 3.4 g/dL (1.3-3.2); Glucose 112 mg/dl (74-100); Potassium 3.6 mmoL/L (3.5-5.1); Sodium 130 mmol/L (136-145); Total Protein,Serum 6.8 g/dl (6.3-8.2)
--- NOTE | 2025-03-23 13:52 | P.DS_ITS ---
General Admission date:: 03/21/25 Discharge date: 03/23/25 HPI HPI HPI: Shantell Segundo is a very pleasant 19yo at 33 weeks and 2 days gestation, based on LMP, consisent with first trimester US. Shantell presented to labor and delivery secondary to not feeling movement since yesterday at 11am. Her has been complicated by chronic vs gestational hypertension. Her BP at 8 and 12 weeks were slightly elevated but then it was normal until 32w6d weeks gestation. On presentation patient denied any leakage of fluid or vaginal bleeding. She denies headaches or vision changes. Denies elevated BP at home. denies RUQ pain. A+, antibody negative, rubella immune, hepatitis B negative, hepatitis C negative, RPR negative, HIV negative 1 hour GTT: not completed GBS unknown Hospital Course Hospital Course Hospital Course: Shantell Segundo is a 19-year-old G1, P0 who is day #0 following delivery of a stillborn male at 33 weeks gestation. See delivery note. She has done well and has remained afebrile with her at her hospitalization. She is eating and drinking and ambulating. Her lochia is normal. She has A Rh+ blood, she is rubella immune. She will be discharged home to follow-up with Dr. Alejandro in 2 weeks time. She will continue with her vitamins and iron. She will be discharged home with medications for anxiety: BuSpar and hydroxyzine. She has previously taken BuSpar and did well with this medication. She will take ibuprofen as well. She was given the usual instructions with respect to limiting her activity, driving and sexual activity. She was given instructions with respect to wound care. Her condition on discharge is stable and improved. Exam Data for Last 24 hours Vital signs and Labs for Last 24 Hours: Temp Pulse Resp BP Pulse Ox O2 Del Method 98.4 F 77 15 118/77 97 Room Air 03/22/25 08:48 03/22/25 14:28 03/22/25 14:28 03/22/25 14:28 03/22/25 14:28 03/22/25 14:28 Laboratory Results - last 24 hr 03/21/25 20:15: CMV IgG Ab <0.60, CMV IgM Ab <30.0, EBV Capsid Ag IgG Ab 353.0 H , EBV Capsid Ag IgM Ab <36.0, Toxoplasma IgM Comment Comment, Toxoplasma gondii IgG <3.0, Toxoplasma gondii IgM <3.0, VZV IgG Antibody Reactive 03/23/25 12:50: WBC 10.3 D, RBC 3.74 L, Hgb 10.3 L, Hct 31.4 L, MCV 84.0, MCH 27.5, MCHC 32.8, RDW 14.3, Plt Count 316, MPV 10.3, Neut % (Auto) 80.3 H, Lymph % (Auto) 12.7, [place] % (Auto) 6.1, Eos % (Auto) 0.4, Baso % (Auto) 0.2, Neut # (Auto) 8.3 H, Lymph # (Auto) 1.3, [place] # (Auto) 0.6, Eos # (Auto) 0.0, Baso # (Auto) 0.0, Sodium 130 L, Potassium 3.6, Chloride 100, Carbon Dioxide 24, Anion Gap 9.6, BUN 8 D, Creatinine 0.70, Estimated Creat Clear 201, Estimated GFR 107, Est GFR ( Amer) 129, Glucose 112 H, Calcium 9.5, Total Bilirubin 0.7, AST 147 H D, ALT 240 H D, Alkaline Phosphatase 103, Total Protein 6.8, Albumin 3.4 L, Globulin 3.4 H, Albumin/Globulin Ratio 1.0 L I & O for Last 24 hours: Intake & Output 03/20/25 03/21/25 03/22/25 03/23/25 23:59 23:59 23:59 23:59 Intake Total 389.75 / 389.75 Balance 389.75 / 389.75 Weight 219 lb 0.009 oz Constitutional Constitutional: no acute distress *Routine HEENT Exam Head: Present normocephalic Eye: Present EOMI and PERRL ENT: Present mucous membranes moist *Routine Neck Exam Neck: Present supple; Absent lymphadenopathy *Routine Respiratory Exam Respiratory: Present CTA bilaterally *Routine Cardiovascular Exam Cardiovascular: Present RRR *Routine Abdominal Exam Abdominal: Present soft and normoactive bowel sounds; Absent tenderness *Routine Extremities Exam Extremities: Absent cyanosis, clubbing or edema *Routine Skin Exam Skin: Present warm; Absent rash *Routine Neurological Exam Neurological: Present alert and oriented X3 Results Data Completed and Pending Labs on day of discharge: Labs from last 24 hours 03/23/25 03/21/25 12:50 20:15 WBC 10.3 D RBC 3.74 L Hgb 10.3 L Hct 31.4 L MCV 84.0 MCH 27.5 MCHC 32.8 RDW 14.3 Plt Count 316 MPV 10.3 Neut % (Auto) 80.3 H Lymph % (Auto) 12.7 [place] % (Auto) 6.1 Eos % (Auto) 0.4 Baso % (Auto) 0.2 Neut # (Auto) 8.3 H Lymph # (Auto) 1.3 [place] # (Auto) 0.6 Eos # (Auto) 0.0 Baso # (Auto) 0.0 Sodium 130 L Potassium 3.6 Chloride 100 Carbon Dioxide 24 Anion Gap 9.6 BUN 8 D Creatinine 0.70 Estimated Creat Clear 201 Estimated GFR 107 Est GFR ( Amer) 129 Glucose 112 H Calcium 9.5 Total Bilirubin 0.7 AST 147 H D ALT 240 H D Alkaline Phosphatase 103 Total Protein 6.8 Albumin 3.4 L Globulin 3.4 H Albumin/Globulin Ratio 1.0 L CMV IgG Ab <0.60 CMV IgM Ab <30.0 EBV Capsid Ag IgG Ab 353.0 H EBV Capsid Ag IgM Ab <36.0 Toxoplasma IgM Comment Comment Toxoplasma gondii IgG <3.0 Toxoplasma gondii IgM <3.0 VZV IgG Antibody Reactive DS: Diagnosis Discharge Diagnosis (1) Gestational hypertension: Status: Acute Code(s): O13.9 - Gestational [-induced] hypertension without significant proteinuria, unspecified trimester (2) Depression: Status: Acute Code(s): F32.A - Depression, unspecified Qualifiers: Depression Type: unspecified Qualified Code(s): F32.A - Depression, unspecified (3) Anxiety: Status: Acute Code(s): F41.9 - Anxiety disorder, unspecified (4) Anemia: Status: Acute Code(s): D64.9 - Anemia, unspecified (5) Fresh stillbirth: Status: Acute Code(s): P95 - Stillbirth (6) Stillbirth with antepartum : Status: Acute Code(s): Z37.1 - Single stillbirth (7) Obesity: Status: Acute Code(s): E66.9 - Obesity, unspecified (8) Encounter for induction of labor: Status: Acute Code(s): Z34.90 - Encounter for supervision of normal , unspecified, unspecified trimester Meds Home Medications and Allergies Home Medications ?Medication ?Instructions ?Recorded ?Confirmed ?Type vits no.126-ferrous fum 1 tab PO DAILY #30 ta bs 09/29/24 03/22/25 Rx 28 mg iron-folic acid 800 mcg tablet (Classic ) acetaminophen 500 mg tablet 500 mg PO Q6H PRN fever or pain 03/23/25 Rx #30 tabs buspirone 10 mg tablet 10 mg PO DAILY PRN Anxiety # 60 tabs 03/23/25 03/22/25 Rx ferrous sulfate 325 mg (65 mg 325 mg PO DAILY #30 tabs 03/23/25 Rx iron) tablet,delayed release hydroxyzine HCl 25 mg tablet 25 mg PO HS #30 tabs 03/13 06/06 Rx ibuprofen 800 mg tablet 800 mg PO Q8H PRN pain #60 t abs 03/23/25 Rx sennosides 8.6 mg tablet (Senna 8.6 mg PO BIDP PRN Con stipation 03/23/25 Rx Lax) #60 tabs New Prescriptions to Start Prescriptions: acetaminophen Calvin,Malena ferrous sulfate Calvin,Malena hydroxyzine HCl Calvin,Malena ibuprofen Calvin,Malena sennosides [Senna Lax] Malena Simpson Allergies Allergy/AdvReac Type Severity Reaction Status Date / Time Penicillins Allergy Mild Hives Verified 03/18/25 10:21 Discharge Plan Disposition Patient Disposition: Home, Self-Care Discharge Order Discharge Orders: Discharge Order (Routine); Ordered 03/23/25 Ordered By: Malena Simpson Follow up Plan Follow up with: Belgica Alejandro DO [Staff Physician, [facility]] - Enter time for follow up Prescriptions/Medication Reconciliation: New sennosides [Senna Lax] 8.6 mg Tablet 8.6 mg PO BIDP PRN (Reason: Constipation) Qty: 60 2RF ibuprofen 800 mg tablet 800 mg PO Q8H PRN (Reason: pain) Qty: 60 2RF acetaminophen 500 mg tablet 500 mg PO Q6H PRN (Reason: fever or pain) Qty: 30 3RF ferrous sulfate 325 mg (65 mg iron) tablet,delayed release (DR/EC) 325 mg PO DAILY Qty: 30 3RF hydroxyzine HCl 25 mg tablet 25 mg PO HS Qty: 30 0RF Continued Classic 28 mg iron- 800 mcg tablet 1 tab PO DAILY Qty: 30 11RF buspirone 10 mg tablet 10 mg PO DAILY PRN (Reason: Anxiety) Qty: 60 2RF Patient Comments: TAKE 1 TABLET BY MOUTH ONCE A DAY NEEDED Problem Reconciliation Problems Reviewed?: Yes Patient Discharge Instructions ACTIVITY: Continue current activity DIET: regular diet Additional Instructions: Discharge: -Take 800 mg Ibuprofen every 8 hours as needed for pain. You can also take 500- 1000 mg of Tylenol in between doses, every 6-8 hours. -Colace can be taken 1-2 times per day as you need to soften your stool. Make sure to drink at least 8 cups of water per day. -Iron supplements can make you constipated. You can take iron tablets every other day if constipation is too bad. -Nothing in the vagina for 6 weeks - no intercourse, douching, tampons. No tub baths or swimming pools. -Do not lift greater than 20pounds for 2 weeks, this is the equivalent of 2 gallons of milk. -Reasons to return to L&D or call On-Call doctor - fever (greater than 100.4) - heavy vaginal bleeding (soaking through 1 pad in less than 2 hours or passing clots that are egg sized) - vaginal discharge (malodorous and/or purulent) - severe headaches, leg tenderness/edema, or any other symptoms that warrant immediate medical attention. depression/blues - Normal to feel anxious/overwhelmed for first 2 weeks - Talk to your doctor if: anxiety lasts over 2 weeks, trouble bonding with baby, withdrawing from other family members, thoughts of harming yourself or others Blood pressure and preeclampsia instructions 1. Please take your blood pressure 1-2 times per day. 2. Please call if greater than 2 values are higher than: 150 systolic (the top number) or 100 diastolic (the bottom number). 3. Please go to the emergency room or labor and delivery triage if any value is higher than: 160 systolic (the top number) or 110 diastolic (the bottom number). 4. Please call if unrelenting headache (does not go away with rest or Tylenol or ibuprofen), changes in vision (spots, floaters, flashes of light), chest pain, shortness of breath, or right upper quadrant (liver) abdominal pain. It is our privilege to provide care for you. Please do not hesitate to reach out with us with any questions or concerns Malena Simpson DO [facility] [phone] *Nothing in the Vagina for 6 weeks* *No strenuous activity* *No heavy lifting* *No tub baths until okay's by MD* Print Language: Sinhala Providers Primary Care Provider: Kae Toro Admever Provider: Malena Simpson Attending Provider: Malena Simpson
[2025-03-23 15:30] LABS: RPR W/RFX Titers Nonreactive (Nonreactive)
== END 2025-03-23 15:00 | disposition home or self-care (01) | DRG 806 ==
LOC: OBOUT 18:13 → OB 18:13
PROVIDERS: Obstetrics & Gynecology; Admitting Provider Obstetrics & Gynecology; PCP Nurse Practitioner; Visit Provider Obstetrics & Gynecology
DX: O36.4XX0 Maternal care for intrauterine death, not applicable or unspecified (principal); O41.03X0 Oligohydramnios, third trimester, not applicable or unspecified; Z37.1 Single stillbirth; Z3A.33 33 weeks gestation of pregnancy; O99.214 Obesity complicating childbirth; O13.4 Gestational [pregnancy-induced] hypertension without significant proteinuria, complicating childbirth; O99.344 Other mental disorders complicating childbirth; F32.A Depression, unspecified; F41.9 Anxiety disorder, unspecified; O99.334 Smoking (tobacco) complicating childbirth; F17.290 Nicotine dependence, other tobacco product, uncomplicated; O99.02 Anemia complicating childbirth; O69.81X0 Labor and delivery complicated by cord around neck, without compression, not applicable or unspecified; Z23 Encounter for immunization; Z88.0 Allergy status to penicillin
CPT/HCPCS: 36415; 76816; 80053; 81001; 82570; 83735; 84156; 84550; 85025; 86592; 86644; 86645; 86665; 86777; 86787; 86850; 87529; 94761; 99215; J0595; J1171; J2270; J2405; J2550; J7120